=== PATIENT | female | born 1965 | race Caucasian/White ===

== ENCOUNTER 2016-08-07 08:39 | Emergency (ER) | payer BC ==
--- NOTE | 2016-08-07 09:11 | ED ---
Extremity Problem HPI - General Stated complaint: LEFT WRIST INJURY, FROM FALL Time Seen by Provider: 08/07/16 08:49 Source: RN notes reviewed - History of Present Illness Initial comments: 50-year-old female presents emergency Department chief complaint of left wrist pain. Patient states she tripped and fell on Sunday. Patient states since then she's had some stiffness to her left wrist worse with movement. Patient does admit to pain at the base of the thumb. Patient states she has a history of breaking this wrist in the past so she was concerned. Patient states she hasn't had any other symptoms with this. Patient states pain is moderate radiates into the elbow. Worst movement or touch.Patient denies any recent fever, chills, shortness of breath, chest pain, back pain, abdominal pain, nausea vomiting, numbness or tingling, dysuria or hematuria, constipation or diarrhea, headaches or visual changes, or any other current symptoms. - Related Data Home Medications Medication Instructions Recorded Confirmed No Known Home Medications [No 08/07/16 08/07/16 Known Home Medications] Allergies Allergy/AdvReac Type Severity Reaction Status Date / Time codeine Allergy Severe Anaphylaxis Verified 08/07/16 08:52 iodine Allergy Severe Rash/Hives Verified 08/07/16 08:52 povidone-iodine AdvReac Rash/Hives Verified 08/07/16 08:52 [From Betadine] soap [From Betadine] AdvReac Rash/Hives Verified 08/07/16 08:52 Review of Systems ROS Statement: Those systems with pertinent positive or pertinent negative responses have been documented in the HPI. ROS Other: All systems not noted in ROS Statement are negative. Past Medical History Past Medical History: GERD/Reflux, Neurologic Disorder, Pneumonia, Syncope Additional Past Medical History / Comment(s): Epilepsy- A CHILD-LAST SEIZURE AT AGE 13, Sleep apnea/HTN/HYPERLIPIDEMIA RESOLVED WITH WT LOSS SURGERY."HIATAL HERNIA/ULCERS/H PYLORI, GERD is resolved, panni 03/20 History of Any Multi-Drug Resistant Organisms: None Reported Past Surgical History: Bariatric Surgery, Section, Cholecystectomy, Hysterectomy, Tonsillectomy Additional Past Surgical History / Comment(s): Lap band insertion and removal followed by a gastric bypass,C-SECT X 2 Past Anesthesia/Blood Transfusion Reactions: Motion Sickness, Postoperative Nausea & Vomiting (PONV) Additional Past Anesthesia/Blood Transfusion Reaction / Comment(s): CLAUSTERPHOBIA Past Psychological History: Anxiety Additional Psychological History / Comment(s): PT LIVES WITH HER DAUGHTERS.PT IS INDEPENDANT WORKS [employer] AT [employer]. Smoking Status: Former smoker Past Alcohol Use History: None Reported Additional Past Alcohol Use History / Comment(s): QUIT SMOKING APPROX 2004, SMOKED APPROX 5 YRS Past Drug Use History: None Reported - Past Family History Father Family Medical History: Cancer, Myocardial Infarction ([place]) Additional Family Medical History / Comment(s): prostate CANCER, PACEMAKER Mother Family Medical History: Hypertension Additional Family Medical History / Comment(s): MIGRAINES, MANIC DEPRESSION. COMMITTED SUICIDE AT AGE 54 General Exam - General Exam Comments Initial Comments: General: The patient is awake and alert, in no distress, and does not appear acutely ill. Neck: The neck is supple, there is no tenderness. Cardiovascular: There is a regular rate. Respiratory: Lungs respirations are non-labored, breath sounds are equal. Musculoskeletal: Sensation intact with 2+ pulses. Left foot x-ray. For range of motion of left elbow and left wrist. Patient does have some tenderness to palpation of the anatomical snuffbox. No tenderness to distal ulna or radius. No associated deformity or swelling. Full range motion of left elbow and all the hand. Neurological: CN II-XII intact, There are no obvious motor or sensory deficits. Coordination appears grossly intact. Speech is normal. Skin: Skin is warm and dry and no rashes or lesions are noted. Psychiatric: Normal mood and affect. Course Vital Signs 08/07/16 09:20 Temperature 97.1 F L Pulse Rate 64 Respiratory 18 Rate Blood Pressure 106/76 O2 Sat by Pulse 100 Oximetry Procedures - Orthopedic Splinting/Casting Injury #1 Side: left Upper Extremity Injury Location: wrist Upper Extremity Immobilizer: thumb spica (Short-arm) Medical Decision Making - Medical Decision Making 50-year-old female presents for left wrist pain. Hematologic potassium, Celebrex. There is a suspected fracture. X-ray results are reviewed. Patient was in a splint and given information for follow-up. We discussed return parameters. We discussed all the patient's questions. She stated that she understood. This time she'll be discharged home. Disposition Clinical Impression: Left wrist sprain Disposition: HOME SELF-CARE Condition: Stable Instructions: Wrist Injury (ED) Additional Instructions: Please use medication as discussed. Please follow up with family doctor if symptoms have not improved over the next two days. Please return to the emergency room if your symptoms increase or worsen or for any other concerns. Referrals: Hong Live III, MD [Primary Care Provider] - 1-2 days Mohan Garner MD [STAFF PHYSICIAN] - 1-2 days Time of Disposition: 09:48
[2016-08-07 09:24] VITALS: TEMP 97.1
--- NOTE | 2016-08-07 09:41 | XR ---
Left wrist HISTORY: Trauma, pain 4 views of the left wrist correlated to prior left wrist exam 24 August 2015 There is no significant interval change. IMPRESSION: Stable exam, no acute abnormalities evident. Follow-up for persistence of symptoms.
[2016-08-07 10:26] VITALS: BP 108/72; PULSE 71; RESP 16
== END 2016-08-07 10:26 | disposition home or self-care (01) ==
LOC: EC 08:39
DX: S63.502A Unspecified sprain of left wrist, initial encounter (principal); W01.0XXA Fall on same level from slipping, tripping and stumbling without subsequent striking against object, initial encounter; Z87.81 Personal history of (healed) traumatic fracture; Z88.5 Allergy status to narcotic agent; Z88.8 Allergy status to other drugs, medicaments and biological substances; Z87.891 Personal history of nicotine dependence
CPT/HCPCS: 29125; 99283

== ENCOUNTER → 2017-03-22 | Outpatient (CLI) | payer BC ==
--- NOTE | 2017-03-23 09:40 | MM ---
Reason for exam: screening (asymptomatic). Last mammogram was performed 3 years and 3 months ago. History: Family history of breast cancer in maternal grandmother. Physical Findings: A clinical breast exam by your physician is recommended on an annual basis and results should be correlated with mammographic findings. MG 3D Screening Mammo W/Cad Bilateral CC and MLO view(s) were taken. Prior study comparison: December 22, 2013, right breast MG work up mamm w CAD RT. December 17, 2013, bilateral MG screening mammo w CAD. August 16, 2010, bilateral digital screening mammogram. The breast tissue is heterogeneously dense. This may lower the sensitivity of mammography. No suspicious abnormality. No significant changes when compared with prior studies. ASSESSMENT: Negative, BI-RAD 1 RECOMMENDATION: Routine screening mammogram of both breasts in 1 year.
== END | disposition home or self-care (01) ==
LOC: RADMAMWWP 14:19
PROVIDERS: ATTEND Family Medicine
DX: Z12.31 Encounter for screening mammogram for malignant neoplasm of breast (principal)
CPT/HCPCS: 77063; G0202

== ENCOUNTER → 2018-02-28 | Outpatient (CLI) | payer BC ==
--- NOTE | 2018-02-28 08:32 | MM ---
Reason for exam: clinical finding. Last mammogram was performed 11 months ago. History: Family history of breast cancer in maternal grandmother at age 70. Indicated problem(s): non-bloody discharge in both breasts. Physical Findings: Nurse did not find any significant physical abnormalities on exam. MG 3D Diag Mammo W/Cad TORITO Bilateral CC and MLO view(s) were taken. Technologist: Pam Gonzalez, RT (R)(M) Prior study comparison: March 22, 2017, bilateral MG 3d screening mammo w/cad. December 22, 2013, right breast MG work up mamm w CAD RT. The breast tissue is heterogeneously dense. This may lower the sensitivity of mammography. There is no discrete abnormality. No significant new findings when compared with previous films. These results were verbally communicated with the patient and result sheet given to the patient on 02/28/18. ASSESSMENT: Negative, BI-RAD 1 RECOMMENDATION: Routine screening mammogram of both breasts in 1 year. Manage patient on a clinical basis.
== END | disposition home or self-care (01) ==
LOC: RADMAMWWP 06:54
PROVIDERS: ATTEND Family Medicine
DX: N64.52 Nipple discharge (principal)
CPT/HCPCS: 77062; 77066

== ENCOUNTER → 2018-07-18 | Outpatient (CLI) | payer BC ==
--- NOTE | 2018-07-18 10:20 | P.PN ---
Subjective Progress Note Date: 07/18/18 HPI: She is coming in with abdominal pain at the left upper pain. She has tried drinking coffee. She had breast leakage that now has gone away. Lowest weight after surgery was 197 pounds. She has burning, stabbing and stretching along the left upper abdomen. She is currently taking Ibuprofen and gastric bypass. ABDOMEN: Left upper pain PLAN: 1. Get bariatric labs 2. Recommend EGD 3. Get CT scan of the abdomen.
[2018-07-18 11:19] LABS: HCT 38.5 % (34.0-46.0); HGB 12.9 gm/dL (11.4-16.0); MCH 30.6 pg (25.0-35.0); MCHC 33.4 g/dL (31.0-37.0); MCV 91.6 fL (80.0-100.0); Mean Platelet Volume 7.6; Platelet Count 265 k/uL (150-450); RDW 13.1 % (11.5-15.5); WBC 6.6 k/uL (3.8-10.6)
[2018-07-18 11:41] LABS: INR 0.9 (<1.2); Partial Thromboplastin Time 24.9 sec (22.0-30.0); Prothrombin Time 9.5 sec (9.0-12.0)
[2018-07-18 12:03] VITALS: BP 130/67; PULSE 76; TEMP 98.2; BMI 35.5
[2018-07-18 15:56] LABS: Iron Saturation 16.25 (12.00-45.00)
[2018-07-18 16:00] LABS: Albumin 4.3 g/dL (3.80-4.90); Albumin/Globulin Ratio 2.53 (1.20-2.10); Anion Gap 8.1 mmol/L (4.00-12.00); Carbon Dioxide 25.9 mmol/L (21.6-31.8); Globulin 1.7 g/dL (2.1-3.7); Phosphorus 4.1 mg/dL (2.4-5.1); Potassium 4.1 mmol/L (3.5-5.5); Total Bilirubin 0.2 mg/dL (0.3-1.2)
[2018-07-18 16:04] LABS: Folate, Serum 9.5 ng/mL; Vitamin D 25 Hydroxy 20.7 ng/mL (30.0-100.0)
[2018-07-18 17:28] LABS: Hemoglobin A1C 5.2 % (4.0-6.0)
[2018-07-18 17:39] LABS: Parathyroid Hormone Intact 77.7 pg/mL (14.0-72.0)
[2018-07-19 12:25] LABS: Vitamin B1 50 ug/L (38-122)
[2018-07-19 14:28] LABS: Zinc, Serum 78 ug/dL (60-130)
== END ==
LOC: BARWHC3 09:17
PROVIDERS: ATTEND Surgery Plastic and Reconstructive Surgery
DX: R10.12 Left upper quadrant pain (principal); E66.01 Morbid (severe) obesity due to excess calories; E21.1 Secondary hyperparathyroidism, not elsewhere classified; E89.1 Postprocedural hypoinsulinemia; D50.9 Iron deficiency anemia, unspecified; E44.0 Moderate protein-calorie malnutrition; E55.9 Vitamin D deficiency, unspecified; K74.1 Hepatic sclerosis; N19 Unspecified kidney failure; K50.90 Crohn's disease, unspecified, without complications; Z98.84 Bariatric surgery status
CPT/HCPCS: 36415; 80053; 80061; 82306; 82525; 82607; 82728; 82746; 83036; 83540; 83550; 83735; 83970; 84100; 84134; 84255; 84425; 84443; 84590; 84630; 85027; 85610; 85730; 99211

== ENCOUNTER → 2018-08-05 | Outpatient (CLI) | payer BC ==
--- NOTE | 2018-08-05 13:45 | CT ---
EXAMINATION TYPE: CT abdomen pelvis wo con DATE OF EXAM: 08/05/2018 COMPARISON: 12/22/2015 INDICATION: Mid abdominal pain x few months. DLP: 775.2 mGycm, Automated exposure control for dose reduction was used. CONTRAST: 0 mL of Isovue 300. Study performed without Oral Contrast TECHNIQUE: Axial images were obtained from above the diaphragm to the pubic rami in the axial plane a t 5 mm thick sections. Reconstructed images are reviewed on the computer in the coronal plane. FINDINGS: Limited CT sections are obtained the lung bases. There is a mild infiltrate in the posterior medial left lower lung field. Correlate for atelectasis and pneumonia. Follow-up is recommended.. CT ABDOMEN: Prior gastric surgery is evident. Liver: Normal Spleen: Normal Pancreas: Normal Adrenal glands: The adrenal glands are normal. Gallbladder: Surgically absent Kidneys: No masses are evident. No hydronephrosis is present. No cysts are present. No renal stone s are identified. Aorta: Vascular calcification is within the aorta. Inferior vena cava: Normal. CT PELVIS: Loops of bowel within the abdomen and pelvis are normal. Studies performed without oral contrast limiting the bowel evaluation. There are a few scattered diverticuli within the sigmoid colon. Appendix: Normal as visualized. Urinary bladder: Normal. Genitourinary structures: Uterus appears normal. Adnexal regions are clear. Osseous structures: No suspicious lytic or sclerotic lesions. IMPRESSIONS: 1. Posterior medial left lower lobe infiltrate. Correlate for pneumonia. Follow-up is recommended. 2. Diverticulosis without acute diverticulitis.
== END ==
LOC: RADCTMAIN 11:47
PROVIDERS: ATTEND Surgery Plastic and Reconstructive Surgery
DX: K57.90 Diverticulosis of intestine, part unspecified, without perforation or abscess without bleeding (principal)
CPT/HCPCS: 74176

== ENCOUNTER 2018-09-16 10:40 | Day surgery (SDC) | payer BC ==
[2018-09-12 11:51] VITALS: BMI 34.9
--- NOTE | 2018-09-16 06:28 | P.GSHP ---
History of Present Illness H&P Date: 09/16/18 CHIEF COMPLAINT: GERD HISTORY OF PRESENT ILLNESS: The patient is a 52-year-old female who presents reports gastroesophageal reflux disease. Upper endoscopy was offered for further evaluation and management. PAST MEDICAL HISTORY: Please see list. PAST SURGICAL HISTORY: Please see list. MEDICATIONS: Please see list. ALLERGIES: Please see list. SOCIAL HISTORY: No illicit drug use FAMILY HISTORY: No reports of Crohn disease or ulcerative colitis. REVIEW OF ORGAN SYSTEMS: CONSTITUTIONAL: No reports of fevers or chills. GI: Denies any blood in stools or constipation. PHYSICAL EXAM: VITAL SIGNS: Stable GENERAL: Well-developed and pleasant in no acute distress. HEENT: No scleral icterus. Extraocular movements grossly intact. Moist buccal mucosa. NECK: Supple without lymphadenopathy. CHEST: Unlabored respirations. Equal bilateral excursions. CARDIOVASCULAR: Regular rate and rhythm. Distal 2+ pulses. ABDOMEN: Soft, nondistended. MUSCULOSKELETAL: No clubbing, cyanosis, or edema. ASSESSMENT: 1. Gastroesophageal reflux disease PLAN: 1. Recommend proceeding with an upper endoscopy Past Medical History Past Medical History: GERD/Reflux, Neurologic Disorder, Pneumonia, Syncope Additional Past Medical History / Comment(s): Epilepsy- A CHILD-LAST SEIZURE AT AGE 13, "borderline cholesterol-no tx" History of Any Multi-Drug Resistant Organisms: None Reported Past Surgical History: Bariatric Surgery, Section, Cholecystectomy, Hysterectomy, Tonsillectomy Additional Past Surgical History / Comment(s): Lap band insertion and removal followed by a gastric bypass, abdominoplasty Past Anesthesia/Blood Transfusion Reactions: Motion Sickness, Postoperative Nausea & Vomiting (PONV) Additional Past Anesthesia/Blood Transfusion Reaction / Comment(s): CLAUSTROPHOBIA, motion sickness as child, no PONV in a long time Smoking Status: Current every day smoker - Past Family History Father Family Medical History: Cancer Additional Family Medical History / Comment(s): prostate CANCER Mother Family Medical History: Deep Vein Thrombosis (DVT), Pulmonary Embolus Additional Family Medical History / Comment(s): . Medications and Allergies Home Medications Medication Instructions Recorded Confirmed Type Omeprazole 40 mg PO DAILY #30 capsule. 07/18/18 09/12/18 Rx Multivitamins, Thera [Multivitamin 1 tab PO DAILY 09/12/18 09/12/18 History (formulary)] Allergies Allergy/AdvReac Type Severity Reaction Status Date / Time codeine Allergy Severe Anaphylaxis Verified 09/12/18 11:43 iodine Allergy Severe Rash/Hives Verified 09/12/18 11:43 povidone-iodine AdvReac Rash/Hives Verified 09/12/18 11:43 [From Betadine] soap [From Betadine] AdvReac Rash/Hives Verified 09/12/18 11:43
[~2018-09-16 10:40] MED LIST: LACTATED RINGERS 1,000 ML IV SCH; LIDOCAINE 1% 20 ML VIAL (10MG/ML) FOR IV START INTRADERMA PRN
[2018-09-16 10:57] VITALS: TEMP 97.9
[2018-09-16] MEDS ORDERED: PROPOFOL 10 MG/ML 20 ML VIAL IV ONE (12:42)
[2018-09-16] MEDS ORDERED: LIDOCAINE 1% INJ 10MG/ML (20 ML MDV) ONE (12:42)
[2018-09-16] MEDS ORDERED: KETAMINE 10 MG/ML 20 ML VIAL ONE (12:42)
--- NOTE | 2018-09-16 13:08 | P.PCN ---
Date of Procedure: 09/16/18 Description of Procedure: PREOPERATIVE DIAGNOSIS: Dysphagia. Epigastric abdominal pain Morbid obesity. POSTOPERATIVE DIAGNOSIS: Dysphagia. Epigastric abdominal pain Morbid obesity. Gastritis Gastrojejunal stricture Diaphragmatic hiatal hernia OPERATION: Esophagogastrojejunoscopy with balloon dilatation 20 mm. Esophagogastrojejunoscopy with cold biopsy forceps SURGEON: Iraida Ashby MD ANESTHESIA: MAC. INDICATIONS: The patient is a 52-year-old female who presents with a history of dysphagia, gastric bypass including nausea and vomiting. Benefits and risks of the procedure were described. Informed consent was obtained. DESCRIPTION: The patient was brought into the endoscopy suite and laid in the left lateral decubitus position. After a timeout was confirmed, the procedure was initiated. An Olympus gastroscope was passed along the posterior oropharynx down to the distal esophagus where the squamocolumnar junction was unremarkable. The gastric pouch was entered. A gastrojejunal stricture of 15 mm was found as the adult gastroscope was 9.5 mm in size. A Edicy balloon dilator was placed through the scope. Final insufflation up to 20 mm was performed with a total of 2 minutes. The scope was advanced up to 50 cm from the incisors into the Kalyn limb. The mucosa of the gastrojejunal anastomosis was intact. No gastrojejunal marginal ulcer was encountered. No full-thickness injury was encountered. Gastritis was identified along the gastric pouch and cold forceps biopsy. The GI tract was desufflated. The patient tolerated the procedure well. FINDINGS: Stricture of approximately 15 mm encountered. No chronic gastrojejunal ulceration encountered. Successful balloon dilatation to 20 mm. Diaphragmatic hiatal hernia, 4 cm Gastritis along the pouch with cold forceps biopsy obtained RECOMMENDATIONS: Upper endoscopy as needed Plan - Discharge Summary Discharge Rx Participant: No New Discharge Prescriptions: No Action Omeprazole 40 mg PO DAILY #30 capsule. Multivitamins, Thera [Multivitamin (formulary)] 1 tab PO DAILY Discharge Medication List Omeprazole 40 mg PO DAILY #30 capsule. 07/18/18 [Rx] Multivitamins, Thera [Multivitamin (formulary)] 1 tab PO DAILY 09/12/18 [History ] Follow up Appointment(s)/Referral(s): [facility] [NON-STAFF] - 10/09/18 Patient Instructions/Handouts: *Surgery [facility] - (Anesthesia) Endoscopy Discharge Instructions, Hiatal Hernia (DC), Esophageal Stricture (DC), Dysphagia (ED), Upper Endoscopy (DC) Activity/Diet/Wound Care/Special Instructions: Liquid diet today. Soft diet tomorrow. Discharge Disposition: HOME SELF-CARE
[2018-09-16 13:17] VITALS: BP 114/71; PULSE 76; RESP 16
== END 2018-09-16 13:32 | disposition home or self-care (01) ==
LOC: ORWHC2ENDO 10:40
PROVIDERS: ATTEND Surgery Plastic and Reconstructive Surgery
DX: K29.50 Unspecified chronic gastritis without bleeding (principal); K22.2 Esophageal obstruction; K21.9 Gastro-esophageal reflux disease without esophagitis; K44.9 Diaphragmatic hernia without obstruction or gangrene; E66.01 Morbid (severe) obesity due to excess calories; Z91.048 Other nonmedicinal substance allergy status; F40.240 Claustrophobia; F17.200 Nicotine dependence, unspecified, uncomplicated; G40.909 Epilepsy, unspecified, not intractable, without status epilepticus; Z98.84 Bariatric surgery status; Z87.01 Personal history of pneumonia (recurrent); Z90.49 Acquired absence of other specified parts of digestive tract; Z79.899 Other long term (current) drug therapy; Z88.5 Allergy status to narcotic agent; Z68.34 Body mass index [BMI] 34.0-34.9, adult
CPT/HCPCS: 88305; 43239; 43245; J2001; J2704; C1726

== ENCOUNTER 2018-10-21 08:24 | Emergency (ER) | payer BC ==
[2018-10-21 08:30] VITALS: TEMP 98
[2018-10-21] MEDS ORDERED: predniSONE 50 MG TAB PO STA (08:45)
[2018-10-21] MEDS ORDERED: KETOROLAC 60 MG/2 ML VIAL IM STA (08:45)
[2018-10-21] MEDS ORDERED: HYDROmorphone 1 MG/ML 1 ML SYRINGE IM STA (08:45)
--- NOTE | 2018-10-21 09:06 | ED ---
General Adult HPI <Geraldo Torres - Last Filed: 10/21/18 12:48> - General Source: patient, RN notes reviewed Mode of arrival: ambulatory Limitations: no limitations <Moi Mo - Last Filed: 10/21/18 13:38> - General Chief complaint: Extremity Problem,Nontraumatic Stated complaint: hip pain Time Seen by Provider: 10/21/18 08:24 - History of Present Illness Initial comments: This a 52-year-old female who presents emergency Department complaining of right lower back pain that started last night. Patient points to the SI joint on the right side. Patient states is no radiation of the pain however movement of the leg with lifting her leg does cause more pain in that exact spot. Patient de nies any numbness weakness per patient denies any urinary retention or urinary incontinence. She denies any injury patient denies any heavy lifting. Patient states twisting bending also increase the pain. Patient denies any other problems at this time. (Moi Mo) - Related Data Home Medications Medication Instructions Recorded Confirmed Multivitamins, Thera [Multivitamin 1 tab PO DAILY 09/12/18 10/21/18 (formulary)] Cholecalciferol [Vitamin D3] 1,000 unit PO DAILY 10/21/18 10/21/18 Previous Rx's Medication Instructions Recorded Omeprazole 40 mg PO DAILY #30 capsule. 07/18/18 predniSONE 40 mg PO DAILY #8 tab 10/21/18 Allergies Allergy/AdvReac Type Severity Reaction Status Date / Time codeine Allergy Severe Anaphylaxis Verified 10/21/18 08:58 iodine Allergy Severe Rash/Hives Verified 10/21/18 08:58 povidone-iodine AdvReac Rash/Hives Verified 10/21/18 08:58 [From Betadine] soap [From Betadine] AdvReac Rash/Hives Verified 10/21/18 08:58 Review of Systems ROS Other: All systems not noted in ROS Statement are negative. <Geraldo Torres - Last Filed: 10/21/18 12:48> ROS Other: All systems not noted in ROS Statement are negative. <Moi oM - Last Filed: 10/21/18 13:38> ROS Statement: Those systems with pertinent positive or pertinent negative responses have been documented in the HPI. Past Medical History Past Medical History: GERD/Reflux, Neurologic Disorder, Pneumonia, Syncope Additional Past Medical History / Comment(s): Epilepsy- A CHILD-LAST SEIZURE AT AGE 13, "borderline cholesterol-no tx" History of Any Multi-Drug Resistant Organisms: None Reported Past Surgical History: Bariatric Surgery, Section, Cholecystectomy, Hysterectomy, Tonsillectomy Additional Past Surgical History / Comment(s): Lap band insertion and removal followed by a gastric bypass, abdominoplasty Past Anesthesia/Blood Transfusion Reactions: Motion Sickness, Postoperative Nausea & Vomiting (PONV) Additional Past Anesthesia/Blood Transfusion Reaction / Comment(s): CLAUSTROPHOBIA, motion sickness as child, no PONV in a long time Past Psychological History: Anxiety Smoking Status: Current every day smoker Past Alcohol Use History: None Reported Past Drug Use History: None Reported - Past Family History Father Family Medical History: Cancer Additional Family Medical History / Comment(s): prostate CANCER Mother Family Medical History: Deep Vein Thrombosis (DVT), Pulmonary Embolus Additional Family Medical History / Comment(s): . <Moi Mo - Last Filed: 10/21/18 13:38> General Exam Limitations: no limitations <Moi Mo - Last Filed: 10/21/18 13:38> - General Exam Comments Initial Comments: GENERAL: Patient is well-developed and well-nourished. Patient is nontoxic and well- hydrated and is in mild distress. ENT: Neck is soft and supple. No significant lymphadenopathy is noted. Oropharynx is clear. Moist mucous membranes. Neck has full range of motion without eliciting any pain. EYES: The sclera were anicteric and conjunctiva were pink and moist. Extraocular movements were intact and pupils were equal round and reactive to light. Eyelids were unremarkable. PULMONARY: Unlabored respirations. Good breath sounds bilaterally. No audible rales rhonchi or wheezing was noted. CARDIOVASCULAR: There is a regular rate and rhythm without any murmurs gallops or rubs. ABDOMEN: Soft and nontender with normal bowel sounds. No palpable organomegaly was noted. There is no palpable pulsatile mass. SKIN: Skin is clear with no lesions or rashes and otherwise unremarkable. NEUROLOGIC: Patient is alert and oriented x3. Cranial nerves II through XII are grossly intact. Motor and sensory are also intact. Normal speech, volume and content. Symmetrical smile. Straight leg causes pain in the SI joint on the right side at about 30. MUSCULOSKELETAL: Normal extremities with adequate strength and full range of motion. LYMPHATICS: No significant lymphadenopathy is noted PSYCHIATRIC: Normal psychiatric evaluation. (Moi Mo) Course Vital Signs 10/21/18 10/21/18 10/21/18 08:25 10:35 12:35 Temperature 98.0 F Pulse Rate 77 65 89 Respiratory 18 18 19 Rate Blood Pressure 127/74 118/62 123/85 O2 Sat by Pulse 98 100 100 Oximetry Medical Decision Making <Geraldo Torres - Last Filed: 10/21/18 12:48> <Moi Mo - Last Filed: 10/21/18 13:38> - Medical Decision Making Dr. Mo has been to evaluate the patient for possible sacroiliitis and potential need for injection. The patient is generally tender over the right SI joint. It is felt as though she likely does have sacroiliitis. Risks and benefits of doing an injection into this area were discussed with the patient and she is agreeable. Utilizing Depo-Medrol, lidocaine, and bupivacaine mixture of 10 mL was injected into the right SI joint in the usual standard sterile fashion without any complications. She tolerated this quite well. (Geraldo Torres) After patient got Dilaudid she still felt a little itchy and warmth to her chest is an EKG was done shows normal sinus rhythm at 62 bpm MO interval is on a 54 QRS is 88 QT interval 418 QTC is 424. Patient's EKG shows no ST segment elevation or depression or T wave abnormalities are noted. I reevaluated the patient after the injection by and the patient is feeling considerably better. (Moi Mo) Disposition <Geraldo Torres - Last Filed: 10/21/18 12:48> Is patient prescribed a controlled substance at d/c from ED?: No Time of Disposition: 13:38 <Moi Mo - Last Filed: 10/21/18 13:38> Clinical Impression: Sacroiliitis Disposition: HOME SELF-CARE Prescriptions: predniSONE 40 mg PO DAILY #8 tab Referrals: Hong Live III, MD [Primary Care Provider] - 1-2 days
[2018-10-21] MEDS ORDERED: methylPREDNISolone ACETATE 40 MG/ML 1 ML VIAL INTRAARTIC STA (11:44)
[2018-10-21] MEDS ORDERED: BUPIVACAINE (PF) 0.5% 30 ML VIAL INTRAARTIC STA (11:45)
[2018-10-21] MEDS ORDERED: LIDOCAINE 1% INJ 10MG/ML (20 ML MDV) SQ ONE (11:46)
[2018-10-21] MEDS ORDERED: ROPIVACAINE 5MG/ML 20ML VIAL MISCELLANE STA (12:06)
[2018-10-21] MEDS ORDERED: ROPIVACAINE 5 MG/ML 30 ML VIAL MISCELLANE STA (12:10)
--- NOTE | 2018-10-21 13:12 | XR ---
EXAMINATION TYPE: XR pelvis AP view DATE OF EXAM: 10/21/2018 COMPARISON: NONE HISTORY: 52 year-old female right posterior hip pain TECHNIQUE: Single view FINDINGS: SI joints appear symmetric and intact as does the pubic symphysis. The hips are intact. No acute frac ture, subluxation, or dislocation seen. IMPRESSION: No acute osseous abnormality seen.
[2018-10-21 13:48] VITALS: BP 112/74; PULSE 72; RESP 18
== END 2018-10-21 13:48 | disposition home or self-care (01) ==
LOC: EC 08:24
DX: M46.1 Sacroiliitis, not elsewhere classified (principal); F17.200 Nicotine dependence, unspecified, uncomplicated; Z79.899 Other long term (current) drug therapy; Z88.5 Allergy status to narcotic agent; Z91.048 Other nonmedicinal substance allergy status; Z88.8 Allergy status to other drugs, medicaments and biological substances
CPT/HCPCS: 93005; 72170; 99284; 20605; 96372 ×2; J1030; J2001; J1885; J1170; J2795; J7512

== ENCOUNTER → 2019-05-30 | Outpatient (CLI) | payer BC ==
[2019-05-30 17:23] LABS: HCT 39.4 % (34.0-46.0); HGB 13.1 gm/dL (11.4-16.0); MCH 30.4 pg (25.0-35.0); MCHC 33.2 g/dL (31.0-37.0); MCV 91.6 fL (80.0-100.0); Mean Platelet Volume 6.5; Platelet Count 300 k/uL (150-450); RDW 12.8 % (11.5-15.5); WBC 9.9 k/uL (3.8-10.6)
[2019-05-30 17:38] LABS: INR 0.8 (<1.2); Partial Thromboplastin Time 24.7 sec (22.0-30.0); Prothrombin Time 9.3 sec (9.0-12.0)
[2019-05-30 23:11] LABS: Ferritin 23.5 ng/mL (10.0-291.0)
[2019-05-30 23:20] LABS: % Iron Saturation 9.59 (12.00-45.00); African American GFR (CKD) 85.2 (60.0-200.0); Albumin 4.5 g/dL (3.80-4.90); Albumin/Globulin Ratio 2.5 (1.60-3.17); Anion Gap 5.7 mmol/L (4.00-12.00); BUN/Creat Ratio 17.78 Ratio (12.00-20.00); Calcium 9.2 mg/dL (8.7-10.3); Carbon Dioxide 28.3 mmol/L (21.6-31.8); Chol/HDL Ratio 3.51; Globulin 1.8 g/dL (1.6-3.3); LDL Cholesterol,Calculated 98.2 mg/dL (0.0-131.0); Phosphorus 3.7 mg/dL (2.4-5.1); Potassium 4.5 mmol/L (3.5-5.5); Total Bilirubin 0.2 mg/dL (0.3-1.2); Total Protein 6.3 g/dL (6.2-8.2); VLDL Calculation 39.8 mg/dL (5.00-40.00)
[2019-05-30 23:22] LABS: Hemoglobin A1C 5.3 % (4.0-6.0)
[2019-06-02 15:50] LABS: Zinc, Serum 62 ug/dL (60-130)
[2019-06-03 07:31] LABS: Vit B1(Thiamine) 58 ug/L (38-122)
[2019-06-03 07:41] LABS: Vitamin A 31 ug/dL (38-106)
== END | disposition home or self-care (01) ==
LOC: LABWHC1 16:48
PROVIDERS: ATTEND Surgery Plastic and Reconstructive Surgery
DX: E21.1 Secondary hyperparathyroidism, not elsewhere classified (principal); E89.1 Postprocedural hypoinsulinemia; D50.9 Iron deficiency anemia, unspecified; K90.9 Intestinal malabsorption, unspecified; E44.0 Moderate protein-calorie malnutrition; E55.9 Vitamin D deficiency, unspecified; K74.1 Hepatic sclerosis; N19 Unspecified kidney failure; K50.90 Crohn's disease, unspecified, without complications; E66.01 Morbid (severe) obesity due to excess calories
CPT/HCPCS: 36415; 80053; 80061; 82306; 82525; 82607; 82728; 82746; 83036; 83540; 83550; 83735; 83970; 84100; 84134; 84255; 84425; 84443; 84590; 84630; 85027; 85610; 85730

== ENCOUNTER 2019-06-03 18:59 | Emergency (ER) | payer BC ==
[2019-06-03 19:09] VITALS: RESP 18
[2019-06-03] MEDS ORDERED: SODIUM CHLORIDE 0.9% 1,000 ML IV STA (19:19)
[2019-06-03] MEDS ORDERED: ONDANSETRON 4 MG/2 ML VIAL IVP STA ×2 (19:19→22:00)
[2019-06-03] MEDS ORDERED: HYDROmorphone 2 MG/ML 1 ML SYRINGE IVP STA (19:20)
[2019-06-03 19:49] LABS: Basophils # (A) 0.1 k/uL (0-0.2); Basophils % (A) 1 %; Eosinophils # (A) 0.2 k/uL (0-0.7); Eosinophils % (A) 2 %; HCT 39.5 % (34.0-46.0); HGB 13.2 gm/dL (11.4-16.0); Lymphocytes # (A) 2.6 k/uL (1.0-4.8); Lymphocytes % (A) 31 %; MCH 30.2 pg (25.0-35.0); MCHC 33.4 g/dL (31.0-37.0); MCV 90.6 fL (80.0-100.0); Mean Platelet Volume 7.1; Monocytes # (A) 0.3 k/uL (0-1.0); Monocytes % (A) 4 %; Neutrophils # (A) 5.1 k/uL (1.3-7.7); Neutrophils % (A) 61 %; Platelet Count 322 k/uL (150-450); RBC 4.36 m/uL (3.80-5.40); RDW 12.9 % (11.5-15.5); WBC 8.4 k/uL (3.8-10.6)
--- NOTE | 2019-06-03 19:55 | ED ---
Abdominal Pain HPI - General Chief Complaint: Abdominal Pain Stated Complaint: RLQ PAIN Time Seen by Provider: 06/03/19 19:15 Source: patient Mode of arrival: ambulatory Limitations: no limitations - History of Present Illness Initial Comments: 53-year-old female patient presents to the emergency department today for evaluation of right lower quadrant abdominal pain. Patient states the pain has been present since around 1500 today. States she has been quite nauseated with this but denies any vomiting. States the pain is radiating through to her back. She describes the pain as a sharp stabbing pain. She states that she is unable to urinate or have a bowel movement since pain onset. Last bowel movement was this morning, it was normal for her. She denies any fever or chills. She has had multiple abdominal surgeries in the past including 2 C-sections, lap band insertion and removal, and cholecystectomy. She denies taking any medication for her symptoms today. Denies chest pain or trouble breathing. Patient denies any recent rash, shortness breath, chest pain, numbness, tingling, dizziness, weakness, headache, visual changes, or any other complaints. - Related Data Home Medications Medication Instructions Recorded Confirmed Vortioxetine Hydrobromide 20 mg PO DAILY 06/03/19 06/03/19 [Trintellix] Allergies Allergy/AdvReac Type Severity Reaction Status Date / Time codeine Allergy Severe Anaphylaxis Verified 06/03/19 19:47 iodine Allergy Severe Rash/Hives Verified 06/03/19 19:47 povidone-iodine AdvReac Rash/Hives Verified 06/03/19 19:47 [From Betadine] soap [From Betadine] AdvReac Rash/Hives Verified 06/03/19 19:47 Review of Systems ROS Statement: Those systems with pertinent positive or pertinent negative responses have been documented in the HPI. ROS Other: All systems not noted in ROS Statement are negative. Past Medical History Past Medical History: GERD/Reflux, Neurologic Disorder, Pneumonia, Syncope Additional Past Medical History / Comment(s): Epilepsy- A CHILD-LAST SEIZURE AT AGE 13, "borderline cholesterol-no tx" History of Any Multi-Drug Resistant Organisms: None Reported Past Surgical History: Bariatric Surgery, Section, Cholecystectomy, Hysterectomy, Tonsillectomy Additional Past Surgical History / Comment(s): Lap band insertion and removal followed by a gastric bypass, abdominoplasty Past Anesthesia/Blood Transfusion Reactions: Motion Sickness, Postoperative Nausea & Vomiting (PONV) Additional Past Anesthesia/Blood Transfusion Reaction / Comment(s): CLAUSTROPHOBIA, motion sickness as child, no PONV in a long time Past Psychological History: Anxiety Smoking Status: Current every day smoker Past Alcohol Use History: None Reported Past Drug Use History: None Reported - Past Family History Father Family Medical History: Cancer Additional Family Medical History / Comment(s): prostate CANCER Mother Family Medical History: Deep Vein Thrombosis (DVT), Pulmonary Embolus Additional Family Medical History / Comment(s): . General Exam Limitations: no limitations General appearance: alert, in no apparent distress, other (This is a well-dev eloped, well-nourished adult female patient in mild distress related to pain. Vital signs upon presentation are temperature 97.8F, pulse 92, respirations 18, blood pressure 122/78, pulse ox 100% on room air.) Eye exam: Present: normal appearance, PERRL, EOMI. Absent: scleral icterus, conjunctival injection, periorbital swelling ENT exam: Present: normal exam, normal oropharynx, mucous membranes moist Respiratory exam: Present: normal lung sounds bilaterally. Absent: respiratory distress, wheezes, rales, rhonchi, stridor Cardiovascular Exam: Present: regular rate, normal rhythm, normal heart sounds. Absent: systolic murmur, diastolic murmur, rubs, gallop, clicks GI/Abdominal exam: Present: soft, tenderness (Right lower quadrant), normal bowel sounds. Absent: distended, guarding, rebound, rigid Neurological exam: Present: alert, oriented X3, CN II-XII intact Psychiatric exam: Present: normal affect, normal mood Skin exam: Present: warm, dry, intact, normal color. Absent: rash Course Vital Signs 06/03/19 06/03/19 19:06 22:09 Temperature 97.8 F 97.8 F Pulse Rate 92 67 Respiratory 18 18 Rate Blood Pressure 122/78 108/56 O2 Sat by Pulse 100 97 Oximetry Medical Decision Making - Medical Decision Making 53-year-old female patient presents to the emergency department today for evaluation of right lower quadrant abdominal pain and nausea. Physical examination did reveal right lower quadrant and right upper quadrant tenderness. Labs reviewed and were unremarkable. CT abdomen and pelvis was obtained and showed no acute abnormalities. Appendix appears normal. Patient given IV pain medication nausea medication in the emergency department. Upon reevaluation pain is improved however she still feels nauseous. She'll be discharged home with a starter pack for Lady. She is going to follow-up with her primary care physician tomorrow. Return parameters discussed in detail. She verbalizes understanding and agrees with this plan. - Lab Data Result diagrams: 06/03/19 19:38 06/03/19 19:38 Lab Results 06/03/19 06/03/19 06/03/19 Range/Units 19:38 19:38 21:33 WBC 8.4 (3.8-10.6) k/uL RBC 4.36 (3.80-5.40) m/uL Hgb 13.2 (11.4-16.0) gm/dL Hct 39.5 (34.0-46.0) % MCV 90.6 (80.0-100.0) fL MCH 30.2 (25.0-35.0) pg MCHC 33.4 (31.0-37.0) g/dL RDW 12.9 (11.5-15.5) % Plt Count 322 (150-450) k/uL Neutrophils % 61 % Lymphocytes % 31 % Monocytes % 4 % Eosinophils % 2 % Basophils % 1 % Neutrophils # 5.1 (1.3-7.7) k/uL Lymphocytes # 2.6 (1.0-4.8) k/uL Monocytes # 0.3 (0-1.0) k/uL Eosinophils # 0.2 (0-0.7) k/uL Basophils # 0.1 (0-0.2) k/uL Sodium 140 (137-145) mmol/L Potassium 4.0 (3.5-5.1) mmol/L Chloride 107 (98-107) mmol/L Carbon Dioxide 25 (22-30) mmol/L Anion Gap 8 mmol/L BUN 19 H (7-17) mg/dL Creatinine 0.82 (0.52-1.04) mg/dL Est GFR (CKD-EPI)AfAm >90 (>60 ml/min/1.73 sqM) Est GFR (CKD-EPI)NonAf 83 (>60 ml/min/1.73 sqM) Glucose 108 H (74-99) mg/dL Calcium 9.4 (8.4-10.2) mg/dL Total Bilirubin 0.2 (0.2-1.3) mg/dL AST 21 (14-36) U/L ALT 12 (9-52) U/L Alkaline Phosphatase 116 (38-126) U/L Total Protein 7.0 (6.3-8.2) g/dL Albumin 4.3 (3.5-5.0) g/dL Amylase 50 (30-110) U/L Lipase 179 (23-300) U/L Urine Color Yellow Urine Appearance Clear (Clear) Urine pH 6.0 (5.0-8.0) Ur Specific [place] 1.028 (1.001-1.035) Urine Protein Negative (Negative) Urine Glucose (UA) Negative (Negative) Urine Ketones Negative (Negative) Urine Blood Negative (Negative) Urine Nitrite Negative (Negative) Urine Bilirubin Negative (Negative) Urine Urobilinogen <2.0 (<2.0) mg/dL Ur Leukocyte Esterase Negative (Negative) - Radiology Data Radiology results: report reviewed, image reviewed CT abdomen and pelvis is obtained. Report was reviewed in its entirety. Impression by Dr. Brandee Mitchell shows no acute process. Disposition Clinical Impression: Abdominal pain, Nausea & vomiting Disposition: HOME SELF-CARE Condition: Good Instructions (If sedation given, give patient instructions): Acute Nausea and Vomiting (ED), Abdominal Pain (ED) Additional Instructions: Start with clear liquid diet and advance as tolerated. Take medications as directed. Follow-up with primary care physician tomorrow as you have planned. Return to the emergency department immediately for any new, worsening, or concerning symptoms. Is patient prescribed a controlled substance at d/c from ED?: No Referrals: Hong Live III, MD [Primary Care Provider] - 1-2 days Time of Disposition: 23:11
[2019-06-03 19:57] LABS: ALT 12 U/L (9-52); AST 21 U/L (14-36); African American GFR (CKD) >90 (>60 ml/min/1.73 sqM); Albumin 4.3 g/dL (3.5-5.0); Alkaline Phosphatase 116 U/L (38-126); Amylase 50 U/L (30-110); Anion Gap 8 mmol/L; Blood Urea Nitrogen 19 mg/dL (7-17); Calcium 9.4 mg/dL (8.4-10.2); Carbon Dioxide 25 mmol/L (22-30); Chloride 107 mmol/L (98-107); Glucose 108 mg/dL (74-99); Sodium 140 mmol/L (137-145); Total Bilirubin 0.2 mg/dL (0.2-1.3)
[2019-06-03] MEDS ORDERED: HYDROmorphone 1 MG/ML 1 ML SYRINGE IVP STA (20:45)
--- NOTE | 2019-06-03 21:12 | CT ---
EXAMINATION TYPE: CT abdomen pelvis wo con DATE OF EXAM: 06/03/2019 COMPARISON: 08/05/2018 HISTORY: RLQ/flank pain CT DLP: 945 mGycm Automated exposure control for dose reduction was used. TECHNIQUE: Helical acquisition of images was performed from the lung bases through the pelvis. FINDINGS: LUNG BASES: No significant abnormality is appreciated. LIVER/GB: No significant abnormality is appreciated. PANCREAS: No significant abnormality is seen. SPLEEN: No significant abnormality is seen. ADRENALS: No significant abnormality is seen. KIDNEYS: No significant abnormality is seen. FREE AIR: No free air is visualized. No peritoneal fluid. RETROPERITONEAL ADENOPATHY: None visualized REPRODUCTIVE ORGANS: No significant abnormality is seen URINARY BLADDER: No significant abnormality is seen. PELVIC ADENOPATHY: None visualized. OSSEOUS STRUCTURES: No significant abnormality is seen. BOWEL: No significant abnormality is seen. The appendix has normal appearance. IMPRESSION: NO ACUTE PROCESS.
[2019-06-03 21:37] LABS: Appearance,Urine Clear (Clear); Bilirubin,Urine Negative (Negative); Blood,Urine Negative (Negative); Color,Urine Yellow; Glucose,Urine (UA) Negative (Negative); Ketones,Urine Negative (Negative); Leukocyte Esterase,Urine Negative (Negative); Nitrite,Urine Negative (Negative); Protein,Urine Negative (Negative); Specific Gravity,Urine 1.028 (1.001-1.035); Urobilinogen,Urine <2.0 mg/dL (<2.0)
[2019-06-03] MEDS ORDERED: SODIUM CHLORIDE 0.9% 500 ML 500 ML IV ONE (22:00)
[2019-06-03] MEDS ORDERED: ONDANSETRON 4 MG ODT STARTER PACK 2 TAB BTL PO STA (23:10)
[2019-06-03 23:34] VITALS: BP 108/57; PULSE 68; TEMP 96.9
== END 2019-06-03 23:37 | disposition home or self-care (01) ==
LOC: EC 18:59
DX: R10.31 Right lower quadrant pain (principal); R11.2 Nausea with vomiting, unspecified; M54.9 Dorsalgia, unspecified; F41.9 Anxiety disorder, unspecified; F17.200 Nicotine dependence, unspecified, uncomplicated; Z88.5 Allergy status to narcotic agent; Z91.048 Other nonmedicinal substance allergy status; Z79.899 Other long term (current) drug therapy; Z87.19 Personal history of other diseases of the digestive system; Z90.49 Acquired absence of other specified parts of digestive tract; Z98.84 Bariatric surgery status
CPT/HCPCS: 36415; 80053; 82150; 83690; 85025; 81003; 74176; 99284; 96374; 96375; 96376 ×2; 96361 ×3; J1170 ×2; J2405; S0119

== ENCOUNTER 2019-06-04 13:31 | Observation (INO) | payer BC ==
[2019-06-04] MEDS ORDERED: SIMETHICONE 40 MG/0.6 ML DROPS 2,000 MG/30 ML BOTTLE PO PRN (14:40)
[2019-06-04] MEDS ORDERED: NALOXONE 0.4 MG/ML 1 ML VIAL IV PRN (14:40)
[2019-06-04 14:54] VITALS: BMI 35.3
[2019-06-04] MEDS: ALBUTEROL NEBULIZED 2.5 MG/3 ML INHALATION SCH ×2 (16:15→21:37)
[2019-06-04] MEDS: 0.9% NACL WITH KCL 20 MEQ/L 1,000 ML IV SCH ×2 (16:52→23:34)
[2019-06-04] MEDS: ONDANSETRON 4 MG/2 ML VIAL IVP PRN (16:52)
[2019-06-04] MEDS ORDERED: ACETAMINOPHEN IV (For NPO) 1,000 MG in EMPTY BAG 1 BAG IVPB SCH (18:00)
[2019-06-04] MEDS ORDERED: SODIUM CHLORIDE 0.9% 2,000 ML IV ONE (18:31)
[2019-06-04 19:31] LABS: Basophils % (A) 0 %; Eosinophils # (A) 0.1 k/uL (0-0.7); Eosinophils % (A) 2 %; HCT 34.3 % (34.0-46.0); HGB 11.4 gm/dL (11.4-16.0); Lymphocytes # (A) 2.5 k/uL (1.0-4.8); Lymphocytes % (A) 35 %; MCH 30.7 pg (25.0-35.0); MCHC 33.3 g/dL (31.0-37.0); MCV 92.2 fL (80.0-100.0); Mean Platelet Volume 6.5; Monocytes # (A) 0.4 k/uL (0-1.0); Monocytes % (A) 6 %; Neutrophils % (A) 56 %; Platelet Count 259 k/uL (150-450); RBC 3.72 m/uL (3.80-5.40); WBC 7.1 k/uL (3.8-10.6)
--- NOTE | 2019-06-04 19:33 | P.GSHP ---
History of Present Illness H&P Date: 06/04/19 CHIEF COMPLAINT: Abdominal pain. HISTORY OF PRESENT ILLNESS: Carin Copeland is a 53-year-old female who presented to the ER in the last 24 hours secondary to acute onset epigastric to left upper quadrant bowel pain following eating a meal. She reports attempting trying to eat solid foods and has intractable nausea and vomiting. She is unable to pass flatus. She was discharged home from the ER. She reports her pain is cramping andsevere. She has abdominal gas bloat. She denies any relieving factors. She reports difficulty with keeping fluids down. She still has severe epigastric pain. She feels like her food is stuck. She has a prior history of Kalyn-en-Y gastric bypass performed in June 2013. She is 6 years out. Her lowest weight after surgery was 197 pounds. At her height of 5 foot, 5 inches, ideal body weight is 149 pounds. Highest weight was 304 pounds. Today she comes in weighing 212 pounds from 213 pounds, 1 years ago. She has maintained 1 pound weight loss from 1 year ago. Percent excess weight loss is 59 %. PAST MEDICAL HISTORY: 1. Super morbid obesity, BMI 50.7, initial 2. Dyslipidemia, now resolved. 3. Osteoarthritis of the knees including lower back. 4. Obstructive sleep apnea now resolved. 5. Gastroesophageal reflux disease, now resolved. 6. Panniculitis. 7. Colitis. PAST SURGICAL HISTORY: 1. Adjustable gastric band placement in May 2010. 2. Removal of adjustable gastric band November 2012. 3. Status post Kalyn-en-Y gastric bypass in June 2013. 4. EGD. 5. . 6. Hysterectomy. 7. Panniculectomy. 8. Colonoscopy. 9. Cholecystectomy. MEDICATIONS: 1. Multivitamin. 2. Cymbalta. ALLERGIES: IODINE including BETADINE. SOCIAL HISTORY: No active tobacco use. FAMILY HISTORY: Cancer of the breast, including lung and prostate cancer. REVIEW OF SYSTEMS: CONSTITUTIONAL: At her height of 5 foot, 5 inches, ideal body weight is 149 pounds. Highest weight was 304 pounds. Body mass index has been reduced from 50.7. RESPIRATORY: Resolved obstructive sleep apnea. ENDOCRINE: Resolved diabetes type 2. GASTROINTESTINAL: Has chronic diarrhea exacerbation with cholecystectomy. HEENT: No troubles with vision or hearing. CARDIOVASCULAR: No reports of hypertension or palpitations. MUSCULOSKELETAL: Improved bilateral lower extremity osteoarthritis especially of the knees and hips. Minimal lower back pain especially exacerbated from her pannus. NEURO: No reports of stroke or seizure disorders. PSYCH: New onset depression which she is medically treating. No psychosis or suicidal ideation. HEMATOLOGIC: No DVTs or thromboembolic events. PHYSICAL EXAM: VITAL SIGNS: 5 foot 5, 212 pounds. BMI 35.3 GENERAL: Well-developed female no acute distress. ABDOMEN: No palpable incisional hernias. Soft, tender at epigastrium and left upper quadrant. HEENT: No scleral icterus. Extraocular movements are intact. Moist buccal mucosa. NECK: Supple without lymphadenopathy. CHEST: Nonlabored respirations with equal bilateral excursions. CARDIOVASCULAR: Regular rate and rhythm. MUSCULOSKELETAL: No clubbing, cyanosis, or edema. NEURO: No focal or lateralizing signs. Cranial nerves 2 through 12 intact. PSYCH: Alert and oriented to person place and time. Appropriate affect. SKIN: Good skin turgor. Well-perfused. STUDIES: CT of the abdomen and pelvis reviewed in detail demonstrating no free air. No free fluid. ASSESSMENT: 1. Small bowel obstruction 2. Epigastric abdominal pain 3. Left upper quadrant pain 4. Status post Kalyn-en-Y gastric bypass. 5. Morbid obesity due to excess calories. 6. Body mass index reduced with 50.7 down to 35.5 PLAN: 1. She still has epigastric pain and feels like food is getting stuck. Recommend admission for small bowel obstruction. 2. Recommend upper endoscopy for gastric obstruction 3. IV fluid hydration 3. May need UGI Past Medical History Past Medical History: GERD/Reflux, Neurologic Disorder, Pneumonia, Syncope Additional Past Medical History / Comment(s): Epilepsy- A CHILD-LAST SEIZURE AT AGE 13, "borderline cholesterol-no tx" History of Any Multi-Drug Resistant Organisms: None Reported Past Surgical History: Bariatric Surgery, Section, Cholecystectomy, Hysterectomy, Tonsillectomy Additional Past Surgical History / Comment(s): Lap band insertion and removal followed by a gastric bypass, abdominoplasty Past Anesthesia/Blood Transfusion Reactions: Motion Sickness, Postoperative Nausea & Vomiting (PONV) Additional Past Anesthesia/Blood Transfusion Reaction / Comment(s): CLAUSTROPHOBIA, motion sickness as child, no PONV in a long time Past Psychological History: Anxiety Additional Psychological History / Comment(s): . Smoking Status: Current every day smoker Past Alcohol Use History: None Reported Additional Past Alcohol Use History / Comment(s): smokes 1/2 ppd, smoked for 1 1/2 yrs Past Drug Use History: None Reported - Past Family History Father Family Medical History: Cancer Additional Family Medical History / Comment(s): prostate CANCER Mother Family Medical History: Deep Vein Thrombosis (DVT), Pulmonary Embolus Additional Family Medical History / Comment(s): . Medications and Allergies Home Medications Medication Instructions Recorded Confirmed Type Omeprazole 40 mg PO DAILY 06/04/19 06/04/19 History Vitamin D 5,000units 10,000 units PO DAILY 06/04/19 06/04/19 History Vortioxetine Hydrobromide 10 mg PO DAILY 06/04/19 06/04/19 History [Trintellix] Omeprazole 40 mg PO DAILY #90 capsule. 06/05/19 Rx Sucralfate [Carafate] 1 gm PO BID #60 tablet 06/05/19 Rx Allergies Allergy/AdvReac Type Severity Reaction Status Date / Time codeine Allergy Severe Anaphylaxis Verified 06/04/19 14:48 iodine Allergy Severe Rash/Hives Verified 06/04/19 14:48 povidone-iodine AdvReac Rash/Hives Verified 06/04/19 14:48 [From Betadine] soap [From Betadine] AdvReac Rash/Hives Verified 06/04/19 14:48 Surgical - Exam Vital Signs Temp Pulse Resp BP Pulse Ox 98.1 F 69 16 140/74 99 06/04/19 14:19 06/04/19 14:19 06/04/19 14:19 06/04/19 14:19 06/04/19 14:19 Results - Labs 06/04/19 19:10 06/04/19 19:10 Abnormal Lab Results - Last 24 Hours (Table) 06/04/19 Range/Units 19:10 RBC 3.72 L (3.80-5.40) m/uL Assessment and Plan (1) Small bowel obstruction Status: Acute Code(s): K56.609 - UNSP INTESTNL OBST, UNSP TO PARTIAL VERSUS COMPLETE OBST SNOMED Code(s): 984256764 (2) Intractable nausea and vomiting Status: Acute Code(s): R11.2 - NAUSEA WITH VOMITING, UNSPECIFIED SNOMED Code(s): 866591540 (3) Epigastric abdominal pain Status: Acute Code(s): R10.13 - EPIGASTRIC PAIN SNOMED Code(s): 60342428 (4) Gastric outflow obstruction Status: Acute Code(s): K31.1 - ADULT HYPERTROPHIC PYLORIC STENOSIS SNOMED Code(s): 134731960 (5) Gastrojejunal anastomotic stricture Status: Acute Code(s): K91.89 - OTH POSTPROCEDURAL COMPLICATIONS AND DISORDERS OF DGSTV SYS SNOMED Code(s): 794610446 (6) Morbid obesity due to excess calories Status: Acute Code(s): E66.01 - MORBID (SEVERE) OBESITY DUE TO EXCESS CALORIES SNOMED Code(s): 876156616 (7) BMI 35.0-35.9,adult Status: Acute Code(s): Z68.35 - BODY MASS INDEX (BMI) 35.0-35.9, ADULT SNOMED Code(s): 019423668
[2019-06-04 19:46] LABS: African American GFR (CKD) >90 (>60 ml/min/1.73 sqM); Anion Gap 6 mmol/L; Blood Urea Nitrogen 16 mg/dL (7-17); Calcium 8.6 mg/dL (8.4-10.2); Carbon Dioxide 23 mmol/L (22-30); Chloride 110 mmol/L (98-107); Glucose 83 mg/dL (74-99); Magnesium 1.8 mg/dL (1.6-2.3); Non-African American GFR(CKD) >90 (>60 ml/min/1.73 sqM); Potassium 3.9 mmol/L (3.5-5.1); Sodium 139 mmol/L (137-145)
[2019-06-04] MEDS ORDERED: ACETAMINOPHEN IV (For NPO) 1,000 MG in EMPTY BAG 1 BAG IVPB PRN (20:52)
[2019-06-05] MEDS: ONDANSETRON 4 MG/2 ML VIAL IVP PRN ×2 (02:31→12:50)
[2019-06-05] MEDS: 0.9% NACL WITH KCL 20 MEQ/L 1,000 ML IV SCH (03:54)
[2019-06-05] MEDS: ALBUTEROL NEBULIZED 2.5 MG/3 ML INHALATION SCH ×4 (08:50→21:21)
[2019-06-05] MEDS ORDERED: IV FLUID CONTINUATION 800 ML IV ONE (14:12)
[2019-06-05] MEDS ORDERED: LIDOCAINE 1% INJ 10MG/ML (20 ML MDV) ONE (14:12)
[2019-06-05] MEDS ORDERED: PROPOFOL 10 MG/ML 20 ML VIAL IV ONE (14:12)
[2019-06-05] MEDS ORDERED: 0.9% NACL WITH KCL 20 MEQ/L 1,000 ML IV SCH (15:00)
--- NOTE | 2019-06-05 15:02 | P.PCN ---
Date of Procedure: 06/05/19 Description of Procedure: Date of Procedure: 06/05/19 PREOPERATIVE DIAGNOSIS: Bowel obstruction Epigastric abdominal pain Dysphagia s/p Kalyn-en-y gastric bypass. Nausea with vomiting. Morbid obesity due to excess calories, BMI 35.3 POSTOPERATIVE DIAGNOSIS: Bowel obstruction Epigastric abdominal pain Dysphagia s/p Kalyn-en-y gastric bypass. Nausea with vomiting. 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 SURGEON: Iraida Ashby MD ANESTHESIA: MAC. INDICATIONS: The patient is a 53-year-old female who presents with a history of dysphagia, gastric bypass including new-onset nausea and vomiting. Benefits and risks of the procedure were described. Informed consent was obtained. DESCRIPTION: The patient was brought into the endoscopy suite and laid in the left lateral decubitus position. After a timeout was confirmed, the procedure was initiated. An Olympus gastroscope was passed along the posterior oropharynx down to the distal esophagus where the squamocolumnar junction was unremarkable. The gastric pouch was entered. A gastrojejunal stricture of 15 mm was found as the adult gastroscope was 9.5 mm in size. A [facility] balloon dilator was placed through the scope. Final insufflation up to 20 mm was performed with a total of 2 minutes. The scope was advanced up to 60 cm from the incisors into the Kalyn limb. The mucosa of the gastrojejunal anastomosis was intact. However chronic gastrojejunal marginal ulcer was encountered. Orifice of 15 mm was dilated to 20 mm with chronic ulcerations at 12 and 3:00 marginal ulcers. No full-thickness injury was encountered. The GI tract was desufflated. The patient tolerated the procedure well. FINDINGS: Stricture of approximately 15 mm encountered. Chronic gastrojejunal ulceration encountered. Successful balloon dilatation to 20 mm. Orifice of 15 mm was dilated to 20 mm with chronic ulcerations at 12 and 3:00 marginal ulcers. RECOMMENDATIONS: Start combined therapy of Carafate and omeprazole of at least 4 weeks.
[2019-06-05 19:51] VITALS: BP 114/60; PULSE 63; TEMP 98.5
--- NOTE | 2019-06-05 20:53 | P.DS ---
Providers Date of admission: 06/04/19 13:46 Expected date of discharge: 06/05/19 Attending physician: Iarida Ashby Primary care physician: Stated None - Discharge Diagnosis(es) (1) BMI 35.0-35.9,adult Status: Acute (2) Epigastric abdominal pain Status: Acute (3) Gastric outflow obstruction Status: Acute (4) Gastrojejunal anastomotic stricture Status: Acute (5) Intractable nausea and vomiting Status: Acute (6) Morbid obesity due to excess calories Status: Acute (7) Small bowel obstruction Status: Acute Hospital Course: DIAGNOSES: 1. Small bowel obstruction 2. Epigastric abdominal pain 3. Left upper quadrant pain 4. Status post Kalyn-en-Y gastric bypass. 5. Morbid obesity due to excess calories. 6. Body mass index reduced with 50.7 down to 35.5 7. Gastrojejunal ulcer with obstruction COURSE: Abdominal pain. HISTORY OF PRESENT ILLNESS: Carin Copeland is a 53-year-old female who presented to the ER secondary to acute onset epigastric to left upper quadrant bowel pain following eating a meal. She presented with acute bowel obstruction. She had an upper endoscopy with dilation confirming gastrojejunal ulcer with obstruction. She was made nothing by mouth status including aggressive fluid hydration. She was started on omeprazole including Carafate. Her abdominal pain improved after tolerating diet. Follow-up in the office 2 weeks. Diet as tolerated. Patient Condition at Discharge: Stable Plan - Discharge Summary Discharge Rx Participant: No New Discharge Prescriptions: New Sucralfate [Carafate] 1 gm PO BID #60 tablet Omeprazole 40 mg PO DAILY #90 capsule. Continue Vortioxetine Hydrobromide [Trintellix] 10 mg PO DAILY Vitamin D 5,000units 10,000 units PO DAILY Omeprazole 40 mg PO DAILY Discharge Medication List Omeprazole 40 mg PO DAILY 06/04/19 [History] Vitamin D 5,000units 10,000 units PO DAILY 06/04/19 [History] Vortioxetine Hydrobromide [Trintellix] 10 mg PO DAILY 06/04/19 [History] Omeprazole 40 mg PO DAILY #90 capsule. 06/05/19 [Rx] Sucralfate [Carafate] 1 gm PO BID #60 tablet 06/05/19 [Rx] Follow up [facility]Ref[facility] [place] [facility] Patient Instructions/Handouts: Bowel Obstruction (DC), Esophageal Dilation (DC) Activity/Diet/Wound Care/Special Instructions: Diet as tolerated. Please pickle sorter prescriptions at local pharmacy Discharge Disposition: HOME SELF-CARE
[2019-06-06 03:53] VITALS: RESP 18
[2019-06-06] MEDS ORDERED: 0.9% NACL WITH KCL 20 MEQ/L 1,000 ML IV SCH (08:00)
== END 2019-06-05 22:50 | disposition home or self-care (01) ==
LOC: UNDOADMIN 13:46 → 4SSUR 13:46 → INTOOBSV 13:46 → UNDODISIN 06-05 22:50
PROVIDERS: ADMIT Surgery Plastic and Reconstructive Surgery; ATTEND Surgery Plastic and Reconstructive Surgery
PROC: 0D7A8ZZ Dilation of Jejunum, Via Natural or Artificial Opening Endoscopic (ICD-10-PCS; 2019-06-05)
PROC: 0D768ZZ Dilation of Stomach, Via Natural or Artificial Opening Endoscopic (ICD-10-PCS; principal; 2019-06-05 08:15)
DX: K56.699 Other intestinal obstruction unspecified as to partial versus complete obstruction (principal); K28.7 Chronic gastrojejunal ulcer without hemorrhage or perforation; K91.89 Other postprocedural complications and disorders of digestive system; K31.1 Adult hypertrophic pyloric stenosis; F41.9 Anxiety disorder, unspecified; K21.9 Gastro-esophageal reflux disease without esophagitis; F17.210 Nicotine dependence, cigarettes, uncomplicated; F40.240 Claustrophobia; E66.01 Morbid (severe) obesity due to excess calories; Z68.35 Body mass index [BMI] 35.0-35.9, adult; M16.0 Bilateral primary osteoarthritis of hip; M17.0 Bilateral primary osteoarthritis of knee; M47.816 Spondylosis without myelopathy or radiculopathy, lumbar region; Z79.899 Other long term (current) drug therapy; Z91.048 Other nonmedicinal substance allergy status; Z88.5 Allergy status to narcotic agent; Z88.8 Allergy status to other drugs, medicaments and biological substances; Z86.69 Personal history of other diseases of the nervous system and sense organs; Z87.01 Personal history of pneumonia (recurrent); Z90.49 Acquired absence of other specified parts of digestive tract; Z90.710 Acquired absence of both cervix and uterus; Z98.84 Bariatric surgery status; Z80.3 Family history of malignant neoplasm of breast; Z80.42 Family history of malignant neoplasm of prostate; Z80.1 Family history of malignant neoplasm of trachea, bronchus and lung; Z82.49 Family history of ischemic heart disease and other diseases of the circulatory system
CPT/HCPCS: 96374; 96375; 97161; 97165; 80048; 83735; 85025; 43249; G0378 ×2; G0379; J2405 ×2; J2001; J0131 ×2; J2704; C1726

== ENCOUNTER → 2019-06-04 | Outpatient (CLI) | payer BC ==
[2019-06-04 13:32] VITALS: BP 124/75; PULSE 77; TEMP 97.9; BMI 37.0
--- NOTE | 2019-06-04 13:33 | P.PN ---
Subjective Progress Note Date: 06/04/19 Was in the ER last night for acute abdominal pain with history of gastric bypass. She cannot pass flatus. She reports eating bread and salad prior to the event. CT reviewed. Findings of GJ small bowel obstruction. Recommend admission for small bowel obstruction.
== END | disposition home or self-care (01) ==
LOC: BARWHC3 13:13
PROVIDERS: ATTEND Surgery Plastic and Reconstructive Surgery
DX: K56.609 Unspecified intestinal obstruction, unspecified as to partial versus complete obstruction (principal); Z98.84 Bariatric surgery status
CPT/HCPCS: 99211

== ENCOUNTER → 2019-06-19 | Outpatient (CLI) | payer BC ==
[~2019-06-19] MED LIST changes: -LACTATED RINGERS 1,000 ML IV SCH; -LIDOCAINE 1% 20 ML VIAL (10MG/ML) FOR IV START INTRADERMA PRN; +SODIUM CHLORIDE 0.9% 1,000 ML IV ONE
[2019-06-19 10:44] VITALS: BMI 36.2
--- NOTE | 2019-06-19 10:54 | P.PN ---
Subjective Progress Note Date: 06/19/19 She reports crampy diarrhea. She can keep fluids down. SHe still has abominal pain. Labs vitamin d, calcium. She reports chronic gas bloat and chronic diarrhea. Recommend dx laparoscopy Fluids recommend UGI for abdominal pain. Objective - Vital Signs Vital signs: Vital Signs Temp 98.3 F 06/19/19 10:18 Pulse 71 06/19/19 10:18 Resp BP 121/82 06/19/19 10:18 Pulse Ox Intake & Output 06/18/19 06/19/19 06/19/19 18:59 06:59 18:59 Weight 98.883 kg
[2019-06-19 11:35] VITALS: BP 120/83; PULSE 88; RESP 14; TEMP 97.7
== END | disposition home or self-care (01) ==
LOC: BARWHC3 09:31
PROVIDERS: ATTEND Surgery Plastic and Reconstructive Surgery
DX: E86.0 Dehydration (principal)
CPT/HCPCS: 96360; 96361; 99211

== ENCOUNTER → 2019-06-26 | Outpatient (CLI) | payer BC ==
--- NOTE | 2019-06-26 13:05 | FL ---
EXAMINATION: Upper GI with small bowel follow through DATE: 06/26/2019 CLINICAL INDICATION: 53-year-old female with nausea and vomiting. Patient with previous lap band conv erted to a Kalyn-en-Y gastric bypass. Status post dilatation on 06/05/2019. Ulcer seen on endoscopy. COMPARISON: Correlation CT 06/03/2019 Total Fluoroscopy Time: 1 minute 49 seconds Total images: 51 FINDINGS: Initial credit collections manager image shows surgical staple lines left paramedian upper abdomen from Kalyn-en-Y gastric bypass. Cholecystectomy clips. Degenerative changes lower lumbar spine. The esophagus has a normal course, caliber, motility and mucosa. No hiatal hernia is identified. Only single contrast exam was performed utilizing thin barium due to the patient's bariatric surgery. There is prompt filling of the gastric pouch and subsequent prompt passage into jejunum across a fajardo nt gastrojejunostomy. Allowing for single contrast technique, no definite persistent filling defect and demonstrated. Following administration of barium, serial films were carried out to 3 hours. Barium is seen to reach the colon. Loops of jejunum and ileum are compressed and examined under fluoroscopy. The small bowel loops have a normal-caliber. Mucosal pattern is within normal limits. No intrinsic or extrinsic process is suspected. A normal appendix is visualized. IMPRESSION: 1. Single contrast technique was utilized given prior bariatric surgery (Kalyn-en-Y gastric bypass). 2. No specific abnormality of the esophagus. 3. Prompt passage into the gastric pouch and subsequently across the gastrojejunostomy which appears normal caliber. No specific abnormality seen. Of note, the pouch appears less distended than on CT of 06/03/2019. 4. Small bowel transit time of 3 hours which is upper limits of normal. The small bowel loops demonst rate a normal appearance and mucosal pattern.
== END | disposition home or self-care (01) ==
LOC: RADFLMAIN 07:47
PROVIDERS: ATTEND Surgery Plastic and Reconstructive Surgery
DX: R11.2 Nausea with vomiting, unspecified (principal); Z98.84 Bariatric surgery status
CPT/HCPCS: 74249

== ENCOUNTER 2019-09-19 12:06 | Observation (INO) | payer BC ==
[2019-09-19] MEDS ORDERED: ASPIRIN 81 MG PO STA (12:36)
[2019-09-19] MEDS ORDERED: NITROGLYCERIN OINT 1 INCH/GM PACKET TOPICAL STA (12:36)
[2019-09-19] MEDS ORDERED: NITROGLYCERIN SL TABS 0.4 MG TAB SUBLINGUAL STA (12:36)
[2019-09-19] MEDS ORDERED: HYDROcodone/APAP 10-325MG 1 EACH TAB PO ONE (12:38)
--- NOTE | 2019-09-19 12:38 | ED ---
General Adult HPI - General Chief complaint: Chest Pain Stated complaint: chest pain, dizzy Time Seen by Provider: 09/19/19 12:10 Source: patient, RN notes reviewed, old records reviewed Mode of arrival: ambulatory Limitations: no limitations - History of Present Illness Initial comments: This is a 53-year-old female presents emergency department with past medical history significant for borderline high cholesterol and a family history of heart disease in her father. Patient states about 9:30 today at work she started having chest pain with some shortness of breath and as the day progressed it radiated to her back and she became diaphoretic and lightheaded at that point she decided come the emergency department. Patient states she still experiencing the chest pain she also has a headache. Patient denies any recent fever chills or cough. Patient denies any abdominal pain patient denies any vomiting or diarrhea. Patient denies any recent injury or trauma. - Related Data Home Medications Medication Instructions Recorded Confirmed Ibuprofen [Advil] 400 mg PO Q8HR PRN 09/19/19 09/19/19 Vortioxetine Hydrobromide 20 mg PO QAM 09/19/19 09/19/19 [Trintellix] Allergies Allergy/AdvReac Type Severity Reaction Status Date / Time codeine Allergy Severe Anaphylaxis Verified 09/19/19 13:17 iodine Allergy Severe Rash/Hives Verified 09/19/19 13:17 povidone-iodine Allergy Rash/Hives Verified 09/19/19 13:17 [From Betadine] soap [From Betadine] Allergy Rash/Hives Verified 09/19/19 13:17 Review of Systems ROS Statement: Those systems with pertinent positive or pertinent negative responses have been documented in the HPI. ROS Other: All systems not noted in ROS Statement are negative. Past Medical History Past Medical History: GERD/Reflux, Neurologic Disorder, Pneumonia, Syncope Additional Past Medical History / Comment(s): Epilepsy- A CHILD-LAST SEIZURE AT AGE 13, "borderline cholesterol-no tx" History of Any Multi-Drug Resistant Organisms: None Reported Past Surgical History: Bariatric Surgery, Section, Cholecystectomy, Hysterectomy, Tonsillectomy Additional Past Surgical History / Comment(s): Lap band insertion and removal followed by a gastric bypass, abdominoplasty Past Anesthesia/Blood Transfusion Reactions: Motion Sickness, Postoperative Nausea & Vomiting (PONV) Additional Past Anesthesia/Blood Transfusion Reaction / Comment(s): CLAUSTROPHOBIA, motion sickness as child, no PONV in a long time Past Psychological History: Anxiety Smoking Status: Current every day smoker Past Alcohol Use History: None Reported Past Drug Use History: None Reported - Past Family History Father Family Medical History: Cancer Additional Family Medical History / Comment(s): prostate CANCER Mother Family Medical History: Deep Vein Thrombosis (DVT), Pulmonary Embolus Additional Family Medical History / Comment(s): . General Exam - General Exam Comments Initial Comments: GENERAL: Patient is well-developed and well-nourished. Patient is nontoxic and well- hydrated and is in mild distress. ENT: Neck is soft and supple. No significant lymphadenopathy is noted. Oropharynx is clear. Moist mucous membranes. Neck has full range of motion without eliciting any pain. EYES: The sclera were anicteric and conjunctiva were pink and moist. Extraocular movements were intact and pupils were equal round and reactive to light. Eyelids were unremarkable. PULMONARY: Unlabored respirations. Good breath sounds bilaterally. No audible rales rhonchi or wheezing was noted. CARDIOVASCULAR: There is a regular rate and rhythm without any murmurs gallops or rubs. ABDOMEN: Soft and nontender with normal bowel sounds. SKIN: Skin is clear with no lesions or rashes and otherwise unremarkable. NEUROLOGIC: Patient is alert and oriented x3. Cranial nerves II through XII are grossly intact. Motor and sensory are also intact. Normal speech, volume and content. Symmetrical smile. MUSCULOSKELETAL: Normal extremities with adequate strength and full range of motion. No lower extremity swelling or edema. No calf tenderness. LYMPHATICS: No significant lymphadenopathy is noted PSYCHIATRIC: Normal psychiatric evaluation. Limitations: no limitations Course Vital Signs 09/19/19 09/19/19 12:09 13:00 Temperature 98.1 F Pulse Rate 70 73 Respiratory 16 18 Rate Blood Pressure 124/85 113/80 O2 Sat by Pulse 100 99 Oximetry Medical Decision Making - Medical Decision Making EKG shows normal sinus rhythm at 75 bpm IL interval 254 QRS is 82 QT interval 362 QTC is 404. Patient's EKG shows no ST segment elevation or depression. Chest x-ray shows no acute normalities. Patient got 1 nitroglycerin sublingual and it completely resolved her pain. Patient also received aspirin and Nitropaste and heparin emergency department. I spoke with Dr. Frost he agreed to admit the patient admitted the patient for unstable angina continue the heparin has been Nitropaste on the floor. I wrote admitting orders I consulted cardiology - Lab Data Result diagrams: 09/19/19 12:32 09/19/19 12:32 Lab Results 09/19/19 09/19/19 09/19/19 Range/Units 12:32 12:32 12:32 WBC 8.1 (3.8-10.6) k/uL RBC 4.79 (3.80-5.40) m/uL Hgb 14.4 (11.4-16.0) gm/dL Hct 43.3 (34.0-46.0) % MCV 90.5 (80.0-100.0) fL MCH 30.1 (25.0-35.0) pg MCHC 33.3 (31.0-37.0) g/dL RDW 13.2 (11.5-15.5) % Plt Count 284 (150-450) k/uL Neutrophils % 64 % Lymphocytes % 27 % Monocytes % 4 % Eosinophils % 3 % Basophils % 2 % Neutrophils # 5.2 (1.3-7.7) k/uL Lymphocytes # 2.2 (1.0-4.8) k/uL Monocytes # 0.3 (0-1.0) k/uL Eosinophils # 0.2 (0-0.7) k/uL Basophils # 0.2 (0-0.2) k/uL PT 9.3 (9.0-12.0) sec INR 0.9 (<1.2) APTT 22.5 (22.0-30.0) sec Sodium 140 (137-145) mmol/L Potassium 4.4 (3.5-5.1) mmol/L Chloride 106 (98-107) mmol/L Carbon Dioxide 25 (22-30) mmol/L Anion Gap 9 mmol/L BUN 17 (7-17) mg/dL Creatinine 0.72 (0.52-1.04) mg/dL Est GFR (CKD-EPI)AfAm >90 (>60 ml/min/1.73 sqM) Est GFR (CKD-EPI)NonAf >90 (>60 ml/min/1.73 sqM) Glucose 81 (74-99) mg/dL Calcium 9.4 (8.4-10.2) mg/dL Magnesium 2.0 (1.6-2.3) mg/dL Total Bilirubin 0.3 (0.2-1.3) mg/dL AST 26 (14-36) U/L ALT 12 (4-34) U/L Alkaline Phosphatase 146 H (38-126) U/L Troponin I (0.000-0.034) ng/mL Total Protein 7.3 (6.3-8.2) g/dL Albumin 4.5 (3.5-5.0) g/dL 09/19/19 Range/Units 12:32 WBC (3.8-10.6) k/uL RBC (3.80-5.40) m/uL Hgb (11.4-16.0) gm/dL Hct (34.0-46.0) % MCV (80.0-100.0) fL MCH (25.0-35.0) pg MCHC (31.0-37.0) g/dL RDW (11.5-15.5) % Plt Count (150-450) k/uL Neutrophils % % Lymphocytes % % Monocytes % % Eosinophils % % Basophils % % Neutrophils # (1.3-7.7) k/uL Lymphocytes # (1.0-4.8) k/uL Monocytes # (0-1.0) k/uL Eosinophils # (0-0.7) k/uL Basophils # (0-0.2) k/uL PT (9.0-12.0) sec INR (<1.2) APTT (22.0-30.0) sec Sodium (137-145) mmol/L Potassium (3.5-5.1) mmol/L Chloride (98-107) mmol/L Carbon Dioxide (22-30) mmol/L Anion Gap mmol/L BUN (7-17) mg/dL Creatinine (0.52-1.04) mg/dL Est GFR (CKD-EPI)AfAm (>60 ml/min/1.73 sqM) Est GFR (CKD-EPI)NonAf (>60 ml/min/1.73 sqM) Glucose (74-99) mg/dL Calcium (8.4-10.2) mg/dL Magnesium (1.6-2.3) mg/dL Total Bilirubin (0.2-1.3) mg/dL AST (14-36) U/L ALT (4-34) U/L Alkaline Phosphatase (38-126) U/L Troponin I <0.012 (0.000-0.034) ng/mL Total Protein (6.3-8.2) g/dL Albumin (3.5-5.0) g/dL Critical Care Time Critical Care Time: Yes Total Critical Care Time: 35 Disposition Clinical Impression: Unstable angina pectoris Disposition: ADMITTED IP TO THIS HOSP Referrals: Hong Live III, MD [Primary Care Provider] - 1-2 days Time of Disposition: 13:57
[2019-09-19] MEDS ORDERED: ACETAMINOPHEN TAB 500 MG TAB PO STA (12:40)
[2019-09-19 12:44] LABS: Basophils # (A) 0.2 k/uL (0-0.2); Basophils % (A) 2 %; Eosinophils # (A) 0.2 k/uL (0-0.7); Eosinophils % (A) 3 %; HCT 43.3 % (34.0-46.0); HGB 14.4 gm/dL (11.4-16.0); Lymphocytes # (A) 2.2 k/uL (1.0-4.8); Lymphocytes % (A) 27 %; MCH 30.1 pg (25.0-35.0); MCHC 33.3 g/dL (31.0-37.0); MCV 90.5 fL (80.0-100.0); Mean Platelet Volume 8.3; Monocytes # (A) 0.3 k/uL (0-1.0); Monocytes % (A) 4 %; Neutrophils # (A) 5.2 k/uL (1.3-7.7); Neutrophils % (A) 64 %; Platelet Count 284 k/uL (150-450); RBC 4.79 m/uL (3.80-5.40); RDW 13.2 % (11.5-15.5); WBC 8.1 k/uL (3.8-10.6)
[2019-09-19 12:53] LABS: ALT 12 U/L (4-34); AST 26 U/L (14-36); African American GFR (CKD) >90 (>60 ml/min/1.73 sqM); Albumin 4.5 g/dL (3.5-5.0); Alkaline Phosphatase 146 U/L (38-126); Anion Gap 9 mmol/L; Blood Urea Nitrogen 17 mg/dL (7-17); Calcium 9.4 mg/dL (8.4-10.2); Carbon Dioxide 25 mmol/L (22-30); Chloride 106 mmol/L (98-107); Glucose 81 mg/dL (74-99); INR 0.9 (<1.2); Non-African American GFR(CKD) >90 (>60 ml/min/1.73 sqM); Partial Thromboplastin Time 22.5 sec (22.0-30.0); Potassium 4.4 mmol/L (3.5-5.1); Prothrombin Time 9.3 sec (9.0-12.0); Sodium 140 mmol/L (137-145); Total Bilirubin 0.3 mg/dL (0.2-1.3); Total Protein 7.3 g/dL (6.3-8.2)
[2019-09-19] MEDS ORDERED: HEPARIN SODIUM,PORCINE 5,000 UNIT/ML 1 ML VIAL IV ONE (13:33)
--- NOTE | 2019-09-19 13:43 | XR ---
EXAMINATION TYPE: XR chest 2V DATE OF EXAM: 09/19/2019 COMPARISON: 12/04/2013 HISTORY: Chest pain TECHNIQUE: Frontal and lateral views of the chest are obtained. FINDINGS: There is no focal air space opacity, pleural effusion, or pneumothorax seen. The cardiac silhouette size is within normal limits. The osseous structures are intact. Mild multilevel degener ative change of the spine. IMPRESSION: No acute cardiopulmonary process.
[2019-09-19] MEDS ORDERED: HEPARIN SOD,PORK IN 0.45% NACL 25,000 UNIT in 0.45% NACL 1 250ML.BAG IV SCH (13:45)
[2019-09-19] MEDS ORDERED: NITROGLYCERIN SL TABS 0.4 MG TAB SUBLINGUAL PRN (13:58)
[2019-09-19] MEDS ORDERED: SODIUM CHLORIDE 0.9% 500 ML 500 ML IV SCH (14:30)
[2019-09-19] MEDS: NITROGLYCERIN OINT 1 INCH/GM PACKET TOPICAL SCH ×2 (17:36→23:24)
[2019-09-19] MEDS ORDERED: ACETAMINOPHEN TAB 500 MG TAB PO PRN (19:09)
[2019-09-19] MEDS ORDERED: ALPRAZolam 0.25 MG TAB PO PRN (19:09)
[2019-09-19] MEDS: NICOTINE 14MG/24HR PATCH TRANSDERM SCH (20:04)
[2019-09-19] MEDS: PANTOPRAZOLE 40 MG TABLET PO SCH (20:29)
[2019-09-19] MEDS ORDERED: TEMAZEPAM 15 MG CAP PO PRN (21:00)
[2019-09-19] MEDS ORDERED: HEPARIN SODIUM,PORCINE 5,000 UNIT/ML 1 ML VIAL IV STA (22:06)
--- NOTE | 2019-09-19 22:47 | HP ---
HISTORY AND PHYSICAL DATE OF SERVICE: 09/19/2019 CHIEF COMPLAINT: Chest pain. HISTORY OF PRESENT ILLNESS: This 53-year-old woman with a past medical history of multiple medical problems, including history of GERD, history of pneumonia, history of epilepsy, history of bariatric surgery, section, history of anxiety, being followed by Maria T in the outpatient setting, apparently had chest pain at work. The patient had sharp pain about 9:30 in the morning, mostly in the right side of the chest radiating to the back. Patient also had some shortness of breath. Patient was diaphoretic and lightheaded and dizzy. The patient was taken to [facility] and admitted for evaluation and treatment. Interesting is the fact that the pain felt much better after nitroglycerin, according to her. There is no history of any fever, rigor or chills. No history of headache, loss of consciousness, seizures. An EKG done in the ER showed no acute changes. The initial labs, including troponins, were within normal limits. PAST MEDICAL HISTORY: GERD, history of pneumonia, history of epilepsy, history of bariatric surgery. HOME MEDICATIONS: 1. Ibuprofen p.r.n. 2. Trintellix 20 mg each morning. ALLERGIES: CODEINE, IODINE, PROVIDONE-IODINE, SOAP. FAMILY HISTORY: History of coronary artery disease in the father. History of prostate cancer. History of valve problems in the SOCIAL HISTORY: History of smoking, continued, ongoing. No history of alcohol intake. REVIEW OF SYSTEMS: ENT: No diminished hearing. No diminished vision. CARDIOVASCULAR SYSTEM: As mentioned earlier. RESPIRATORY SYSTEM: As mentioned earlier. GI: No nausea, vomiting. : No dysuria or retention. NERVOUS SYSTEM: No numbness, weakness. ALLERGY/IMMUNOLOGY: No asthma, hayfever. MUSCULOSKELETAL: As mentioned earlier. HEMATOLOGY/ONCOLOGY: No history of anemia. ENDOCRINE: No history of diabetes, hypothyroidism. CONSTITUTIONAL: As mentioned earlier. DERMATOLOGY: Negative. RHEUMATOLOGY: Negative. PSYCHIATRY: As mentioned earlier. PHYSICAL EXAMINATION: Patient alert and oriented x3. Pulse 67, blood pressure 99/60, respiration 18, temperature 97.3, pulse ox 93% on 2 L. HEENT: Conjunctivae normal. Oral mucosa moist. NECK: No jugular venous distention. No carotid bruit. No lymph node enlargement. CARDIOVASCULAR SYSTEM: S1, S2 muffled. No S3. No S4. RESPIRATORY SYSTEM: Breath sounds diminished at the bases. Scattered rhonchi and crackles. ABDOMEN: Soft, non-tender. No mass palpable. LEGS: No edema. No swelling. NERVOUS SYSTEM: Higher functions as mentioned earlier. Moves all 4 limbs. No focal motor or sensory deficit. LYMPHATICS: No lymph node palpable in neck, axillae or groin. SKIN: No ulcer, rash, bleeding. JOINTS: No active deforming arthropathy. LABS: Labs at this time show CBC within normal limits. INR is 0.9, PT is 9.3. Alkaline phosphatase 146. ASSESSMENT: 1. Chest pain; possible unstable angina. 2. Possible musculoskeletal chest pain. 3. Gastroesophageal reflux disease. 4. History of pneumonia. 5. History of syncope. 6. History of epilepsy. 7. History of bariatric surgery. 8. History of cholecystectomy. 9. History of lap band insertion and removal. 10.History of anxiety. 11.Continued ongoing nicotine dependence. 12.Obesity with body mass index of 36.6. RECOMMENDATIONS AND DISCUSSION: In this 53-year-old woman who presented with multiple medical problems, we will monitor the patient closely. Rule out myocardial infarction. Otherwise, unstable angina protocol. Cardiology consultation. Patient will require further testing such as stress test. We will continue to monitor. Otherwise, prognosis guarded. Further recommendations to follow. A 2D echo will be ordered. A copy of this dictation is being forwarded to Dr. Live, who is the primary physician. SAYRA / NIKO: [id number] / MTDD
[2019-09-20 05:36] LABS: Basophils % (A) 1 %; Eosinophils # (A) 0.1 k/uL (0-0.7); Eosinophils % (A) 2 %; HCT 37.6 % (34.0-46.0); HGB 12.3 gm/dL (11.4-16.0); Lymphocytes # (A) 1.7 k/uL (1.0-4.8); Lymphocytes % (A) 29 %; MCH 29.4 pg (25.0-35.0); MCHC 32.7 g/dL (31.0-37.0); Mean Platelet Volume 7.9; Monocytes # (A) 0.3 k/uL (0-1.0); Monocytes % (A) 5 %; Neutrophils # (A) 3.5 k/uL (1.3-7.7); Neutrophils % (A) 62 %; Platelet Count 264 k/uL (150-450); RBC 4.18 m/uL (3.80-5.40); RDW 13.2 % (11.5-15.5); WBC 5.8 k/uL (3.8-10.6)
[2019-09-20 06:06] LABS: African American GFR (CKD) >90 (>60 ml/min/1.73 sqM); Anion Gap 4 mmol/L; Blood Urea Nitrogen 19 mg/dL (7-17); Calcium 8.8 mg/dL (8.4-10.2); Carbon Dioxide 26 mmol/L (22-30); Chloride 108 mmol/L (98-107); Cholesterol 176 mg/dL (<200); Glucose 88 mg/dL (74-99); HDL Cholesterol 57 mg/dL (40-60); LDL Cholesterol,Calculated 93 mg/dL (0-99); Non-African American GFR(CKD) >90 (>60 ml/min/1.73 sqM); Potassium 4.2 mmol/L (3.5-5.1); Sodium 138 mmol/L (137-145); Triglycerides 132 mg/dL (<150)
[2019-09-20] MEDS: NITROGLYCERIN OINT 1 INCH/GM PACKET TOPICAL SCH (06:26)
[2019-09-20 07:29] VITALS: RESP 18
--- NOTE | 2019-09-20 08:09 | CONS ---
CONSULTATION Carin Copeland is a 53-year-old lady with history of some mild depression. She does not have any hypertension, diabetes, or any other major medical problems. She is status post a lap band surgery several years ago and subsequently had the lap band taken out as well. She also has had a previous section. 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 She came into the hospital mainly with what seems to be an episode of sharp discomfort in the chest. This started off on and off while at work. This was on and off pain lasted a few seconds and subsequently the pain seemed to be more consistent and then she had a pressure-like feeling that lasted maybe a minute or two. With these symptoms, she came into the hospital. Her discomfort in the chest was very atypical, sharp, lasting a few seconds. She also did break into a sweat, but had no nausea. With activity, the pain did not get worse in fact she felt a little better. She was given 1 sublingual nitroglycerin and felt relief. However, the relief seemed to be instantaneous and pain was inconsistent and it is unclear if the nitroglycerin really program provided any relief or not. However she is asymptomatic. Physical exam is unremarkable. EKGs and troponins are normal. PAST MEDICAL HISTORY: Remarkable for some underlying depression and degenerative joint disease. She is status post lap band surgery and also removal of lap band and sections. MEDICATIONS: At home include ibuprofen p.r.n., Trintellix 20 mg daily. ALLERGIES: She is allergic to CODEINE and IODINE-RELATED PRODUCTS. Patient is a smoker, continues to smoke. Does not consume alcohol. She has a family history of CAD, but not premature. PHYSICAL EXAMINATION: Blood pressure is 100/60, pulse rate is 70 per minute, regular. HEENT: Unremarkable. Fundus was not examined by me. Neck is supple. No JVD. I do not hear a carotid bruit. There is no thyromegaly. Heart exam reveals S1, S2 heard normally. No rub, murmur or gallop. Lungs are clear. Abdomen is soft, nontender. Lower extremity reveal normal pulses. No edema. Central nervous system is normal. EKG revealed sinus mechanism, no acute changes. IMPRESSION: 1. Atypical chest pain. 2. History of depression. RECOMMENDATIONS: Patient's pain is very atypical. I am recommending that we discontinue IV heparin and nitroglycerin paste, place her on 12.5 mg of metoprolol and aspirin 81 mg daily and subcu heparin, increase activity and have her ambulate the hallways briskly. If she has no further symptoms, she can be discharged and I will perform a stress test as an outpatient. If she has any symptoms, I will consider coronary angiography. I discussed my thoughts in detail with the patient. Thank you very much for the consult. SAYRA / NIKO: [id number] /
[2019-09-20] MEDS: PANTOPRAZOLE 40 MG TABLET PO SCH (08:23)
[2019-09-20] MEDS: NICOTINE 14MG/24HR PATCH TRANSDERM SCH (08:24)
[2019-09-20] MEDS ORDERED: HEPARIN SODIUM,PORCINE 5,000 UNIT/ML 1 ML VIAL SQ SCH (09:00)
[2019-09-20] MEDS ORDERED: ASPIRIN 81 MG PO SCH (09:00)
[2019-09-20] MEDS ORDERED: VORTIOXETINE HYDROBROMIDE 20 MG TABLET PO SCH (09:00)
[2019-09-20] MEDS ORDERED: ASPIRIN 325 MG TAB PO SCH (09:00)
[2019-09-20] MEDS ORDERED: METOPROLOL TARTRATE 12.5 MG TAB PO SCH (09:00)
[2019-09-20 11:54] VITALS: BP 116/69; PULSE 70; TEMP 98
--- NOTE | 2019-09-20 15:01 | ECHOF ---
Referral Reason:chest pain MEASUREMENTS -------- HEIGHT: 165.1 cm WEIGHT: 100.2 kg BP: 94/59 RVIDd: 3.6 cm (< 3.3) IVSd: 1.2 cm (0.6 - 1.1) LVIDd: 3.6 cm (3.9 - 5.3) LVPWd: 1.3 cm (0.6 - 1.1) IVSs: 1.5 cm LVIDs: 2.9 cm LVPWs: 1.4 cm LA Diam: 4.0 cm (2.7 - 3.8) LAESV Index (A-L): 27.58 ml/m Ao Diam: 2.9 cm (2.0 - 3.7) AV Cusp: 1.8 cm (1.5 - 2.6) LA Diam: 4.0 cm (2.7 - 3.8) MV EXCURSION: 13.536 mm (> 18.000) MV EF SLOPE: 69 mm/s (70 - 150) EPSS: 0.2 cm MV E Kurt: 0.73 m/s MV DecT: 151 ms MV A Kurt: 0.81 m/s MV E/A Ratio: 0.90 RAP: 5.00 mmHg RVSP: 17.05 mmHg FINDINGS -------- Sinus rhythm. This was a technically good study. LV size, wall thickness and systolic function are normal, with an EF greater than 55%. The left keysha tricular size is normal. The right ventricle is normal in size. The left atrial size is normal. Normal LA size by volume 22+/-6 ml/m2. The right atrial size is normal. The aortic valve is trileaflet, and appears structurally normal. No aortic stenosis or regurgitation. Mild mitral regurgitation is present. Mild tricuspid regurgitation present. Right ventricular systolic pressure is normal at < 35 mmHg. There is no evidence of pulmonary hypertension. There is no pulmonic regurgitation present. The aortic root size is normal. There is no pericardial effusion. CONCLUSIONS -------- 1. Sinus rhythm. 2. This was a technically good study. 3. LV size, wall thickness and systolic function are normal, with an EF greater than 55%. 4. The left ventricular size is normal. 5. The right ventricle is normal in size. 6. The left atrial size is normal. 7. Normal LA size by volume 22+/-6 ml/m2. 8. The right atrial size is normal. 9. The aortic valve is trileaflet, and appears structurally normal. No aortic stenosis or regurgitati on. 10. Mild mitral regurgitation is present. 11. Mild tricuspid regurgitation present. 12. Right ventricular systolic pressure is normal at < 35 mmHg. 13. There is no evidence of pulmonary hypertension. 14. There is no pulmonic regurgitation present. 15. The aortic root size is normal. 16. There is no pericardial effusion. MOLDING SUPERVISOR: Rayne Hyman RDCS
--- NOTE | 2019-09-21 06:41 | DS ---
DISCHARGE SUMMARY DATE OF SERVICE: 09/20/2019 FINAL DIAGNOSES: 1. Chest pain, myocardial infarction ruled out. 2. Possible musculoskeletal chest pain. 3. History of gastroesophageal reflux disease. 4. History of pneumonia. 5. History of syncope. 6. History of epilepsy. 7. History of bariatric surgery. 8. History of cholecystectomy. 9. History of lap band insertion and removal. 10.History of anxiety. 11.Continued ongoing nicotine dependence. 12.Obesity with body mass index 36.6. 13.Hypertension. DISCHARGE DISPOSITION: The patient will be discharged in stable condition with guarded prognosis. Cardiology cleared for discharge with outpatient followup plans. HISTORY OF PRESENT ILLNESS: This 53-year-old woman with a past medical history of multiple medical problems being followed by Dr. Live in the outpatient setting was admitted with chest pain which radiated into the back. The patient was monitored closely. Myocardial infarction ruled out. The patient improved significantly. Cardiology saw the patient. Two-D echo did not show acute abnormality. The patient was discharged in stable condition with guarded prognosis. DISCHARGE ADVICE AND MEDICATIONS: 1. Diet is cardiac diet. 2. Activity limited until followup. 3. Follow up with Cardiology as recommended. 4. Follow up with Dr. Live as recommended. DISCHARGE MEDICATIONS: 1. Ibuprofen 400 mg q8h p.r.n. 2. Vortioxetine 10 mg p.o. daily. 3. Lopressor 12.5 mg p.o. daily. Once again the patient will be discharged in stable condition with guarded prognosis. Consider possible outpatient stress test by Cardiology. MMODL / IJN: [id number] /
== END 2019-09-20 12:08 | disposition home or self-care (01) ==
LOC: EC 12:06 → 1SOBS 14:06
PROVIDERS: ADMIT Hospitalist; ATTEND Hospitalist
DX: R07.89 Other chest pain (principal); K21.9 Gastro-esophageal reflux disease without esophagitis; G40.909 Epilepsy, unspecified, not intractable, without status epilepticus; F40.240 Claustrophobia; F17.200 Nicotine dependence, unspecified, uncomplicated; F41.9 Anxiety disorder, unspecified; I10 Essential (primary) hypertension; E66.9 Obesity, unspecified; Z68.36 Body mass index [BMI] 36.0-36.9, adult; Z98.84 Bariatric surgery status; Z79.1 Long term (current) use of non-steroidal anti-inflammatories (NSAID); Z79.899 Other long term (current) drug therapy; Z88.5 Allergy status to narcotic agent; Z88.8 Allergy status to other drugs, medicaments and biological substances; Z90.49 Acquired absence of other specified parts of digestive tract; Z90.710 Acquired absence of both cervix and uterus; Z90.89 Acquired absence of other organs; Z82.49 Family history of ischemic heart disease and other diseases of the circulatory system; Z80.42 Family history of malignant neoplasm of prostate; Z83.2 Family history of diseases of the blood and blood-forming organs and certain disorders involving the immune mechanism
CPT/HCPCS: 93005 ×2; 96366 ×3; 96376 ×3; 96365; 99291; 36415; 93306; 80061; 80053; 80048; 83735; 84484 ×2; 85025 ×2; 85610; 85730 ×2; 71046; G0378 ×2; J1644 ×3

== ENCOUNTER → 2020-02-06 | Outpatient (CLI) | payer BC ==
--- NOTE | 2020-02-06 08:16 | MM ---
Reason for exam: additional evaluation requested from prior study. Last mammogram was performed 1 year and 11 months ago. History: Family history of breast cancer in maternal grandmother at age 70. Physical Findings: Nurse did not find any significant physical abnormalities on exam. MG 3D Diag Mammo W/Cad TORITO Bilateral CC and MLO view(s) were taken. Prior study comparison: February 28, 2018, bilateral MG 3d diag mammo w/cad TORITO. March 22, 2017, bilateral MG 3d screening mammo w/cad. There are scattered fibroglandular densities. No significant new findings when compared with previous films. These results were verbally communicated with the patient and result sheet given to the patient on 02/06/20. ASSESSMENT: Benign, BI-RAD 2 RECOMMENDATION: Routine screening mammogram of both breasts in 1 year.
== END | disposition home or self-care (01) ==
LOC: RADMAMWWP 07:05
PROVIDERS: ATTEND Family Medicine
DX: N64.52 Nipple discharge (principal)
CPT/HCPCS: 71046; 77062; 77066

== ENCOUNTER → 2020-02-06 | Outpatient (CLI) | payer BC ==
--- NOTE | 2020-02-06 09:03 | XR ---
EXAMINATION TYPE: XR chest 2V DATE OF EXAM: 02/06/2020 COMPARISON: 09/19/2019 TECHNIQUE: PA and lateral views submitted. HISTORY: Dizziness FINDINGS: The lungs are clear and there is no pneumothorax, pleural effusion, or focal pneumonia. Hypertrophi c and degenerative change of the spine. Arthropathy of the shoulders. No overt failure. Heart size no rmal. IMPRESSION: 1. No acute process.
== END | disposition home or self-care (01) ==
LOC: RADXRMAIN 07:45
PROVIDERS: ATTEND Family Medicine
DX: R61 Generalized hyperhidrosis (principal)
CPT/HCPCS: 71046

== ENCOUNTER → 2020-05-07 | Outpatient (CLI) | payer BC ==
--- NOTE | 2020-05-07 22:42 | MR ---
EXAMINATION TYPE: MR brain wo/w con DATE OF EXAM: 05/07/2020 COMPARISON: None HISTORY: Dizziness, headaches, blurred vision right eye CONTRAST: Performed utilizing 10 mL intravenous Gadavist gadolinium contrast. TECHNIQUE: Multiplanar, multiecho imaging on a 3.0 Mirian magnet is performed through the brain. Stud y is performed within 24 hours of arrival to the hospital. The craniovertebral junction is normal. The pituitary is normal. Optic chiasm is normal. Pituitary stalk is midline. Diffusion-weighted imaging is performed. No abnormal hyperintensity is present to suggest an acute i ntracranial infarct or acute ischemic change. There are scattered punctate areas of hyperintensity on T2 and Inversion Recovery weighted sequences which are non-specific but can be related to microvascular ischemic changes. Ventricles and sulci are appropriate for the patient age. No suspicious enhancement is evident. There is a retention cyst within the left sphenoid sinus region mild mucosal thickening within ethmoi d air cells. Globes appear symmetrical. Optic nerves appear unremarkable. Extraocular muscles are normal. IMPRESSIONS: 1. No acute intracranial process pre and postcontrast MRI brain
== END | disposition home or self-care (01) ==
LOC: RADMRIMAIN 20:45
PROVIDERS: ATTEND Family Medicine
DX: R42 Dizziness and giddiness (principal); H53.9 Unspecified visual disturbance
CPT/HCPCS: 70553; A9585

== ENCOUNTER 2020-10-27 18:10 | Emergency (ER) | payer BC ==
[2020-10-27 19:37] VITALS: BP 114/72; PULSE 88; RESP 18; TEMP 98
--- NOTE | 2020-10-27 20:14 | ED ---
Lower Extremity Injury HPI - General Chief Complaint: Extremity Injury, Lower Stated Complaint: foot injury Time Seen by Provider: 10/27/20 19:42 Source: patient Mode of arrival: ambulatory Limitations: no limitations - History of Present Illness Initial Comments: 54-year-old female patient presents to the emergency department today for evaluation of right foot pain. Patient states that couple days ago she was getting down out of her vehicle when she felt a snap in the top of her foot. States that her foot swelled up today. States she does have pain with walking but it is improved with rest. Denies any calf pain or tenderness. Denies any previous injury to the foot. States she does have some mild tingling in her toes. Denies numbness. Denies falling or any other injury. - Related Data Home Medications Medication Instructions Recorded Confirmed Ibuprofen [Advil] 400 mg PO Q8HR PRN 09/19/19 03/04/20 Vortioxetine Hydrobromide 20 mg PO QAM 09/19/19 03/04/20 [Trintellix] Cholecalciferol (Vitamin D3) 125 mg PO DAILY 03/04/20 03/04/20 [Vitamin D3] Iron 65 mg PO DAILY 03/04/20 03/04/20 Mv-Min/Folic/Vit K/Lut/Urpm463 1 tab PO DAILY 03/04/20 03/04/20 [Alive Women's 50 Plus Tablet] Omeprazole 40 mg PO DAILY 03/04/20 03/04/20 Venlafaxine HCl [Effexor] 75 mg PO DAILY 03/04/20 03/04/20 Vitamin A 5,000 unit PO DAILY 03/04/20 03/04/20 Previous Rx's Medication Instructions Recorded Metoprolol Tartrate [Lopressor] 12.5 mg PO DAILY #30 tab 09/20/19 Allergies Allergy/AdvReac Type Severity Reaction Status Date / Time codeine Allergy Severe Anaphylaxis Verified 10/27/20 19:36 iodine Allergy Severe Rash/Hives Verified 10/27/20 19:36 povidone-iodine Allergy Rash/Hives Verified 10/27/20 19:36 [From Betadine] soap [From Betadine] Allergy Rash/Hives Verified 10/27/20 19:36 Review of Systems ROS Statement: Those systems with pertinent positive or pertinent negative responses have been documented in the HPI. ROS Other: All systems not noted in ROS Statement are negative. Past Medical History Past Medical History: GERD/Reflux, Neurologic Disorder, Pneumonia, Syncope Additional Past Medical History / Comment(s): Epilepsy- A CHILD-LAST SEIZURE AT AGE 13, "borderline cholesterol-no tx" History of Any Multi-Drug Resistant Organisms: None Reported Past Surgical History: Bariatric Surgery, Section, Cholecystectomy, Hysterectomy, Tonsillectomy Additional Past Surgical History / Comment(s): Lap band insertion and removal followed by a gastric bypass, abdominoplasty Past Anesthesia/Blood Transfusion Reactions: Motion Sickness, Postoperative Nausea & Vomiting (PONV) Additional Past Anesthesia/Blood Transfusion Reaction / Comment(s): CLAUSTROPHOBIA, motion sickness as child, no PONV in a long time Past Psychological History: Anxiety Smoking Status: Unknown if ever smoked Past Alcohol Use History: None Reported Past Drug Use History: None Reported - Past Family History Father Family Medical History: Cancer Additional Family Medical History / Comment(s): prostate CANCER Mother Family Medical History: Deep Vein Thrombosis (DVT), Pulmonary Embolus Additional Family Medical History / Comment(s): . General Exam Limitations: no limitations General appearance: alert, in no apparent distress, other (This is a well-deve loped, well-nourished adult female patient in no acute distress. Vital signs upon presentation are temperature 98.0F, pulse 88, respirations 18, blood pressure 114/72, pulse ox 98% on room air.) Eye exam: Present: normal appearance, PERRL, EOMI. Absent: scleral icterus, conjunctival injection, periorbital swelling ENT exam: Present: normal exam, normal oropharynx, mucous membranes moist Respiratory exam: Present: normal lung sounds bilaterally. Absent: respiratory distress, wheezes, rales, rhonchi, stridor Cardiovascular Exam: Present: regular rate, normal rhythm, normal heart sounds. Absent: systolic murmur, diastolic murmur, rubs, gallop, clicks Extremities exam: Present: full ROM, tenderness (Over the dorsal aspect of the right foot over the fourth metatarsal. No tarsal tenderness.), normal capillary refill, other (Skin to the right foot is pink, warm, dry. There is generalized soft tissue swelling. Pedal and posttibial pulses 2+. No ankle tenderness, no proximal tib-fib tenderness.). Absent: normal inspection, pedal edema, joint swelling, calf tenderness Neurological exam: Present: alert, oriented X3, CN II-XII intact Psychiatric exam: Present: normal affect, normal mood Skin exam: Present: warm, dry, intact, normal color. Absent: rash Course Vital Signs 10/27/20 19:32 Temperature 98.0 F Pulse Rate 88 Respiratory 18 Rate Blood Pressure 114/72 O2 Sat by Pulse 98 Oximetry Medical Decision Making - Medical Decision Making 54-year-old female patient presented to the emergency department today for evaluation of right foot pain and swelling after injury a couple of days ago. Physical examination did reveal generalized swelling to the foot. Tenderness over the fourth metatarsal. X-ray was negative. We did discuss sprain as a cause for her symptoms. She is given an Chaz wrap. Educated regarding rest, ice, elevation. Instructed take Tylenol and Motrin for pain control. She is instructed to follow-up with orthopedics for symptoms are not improved over the next week. Return parameters were discussed in detail. She verbalizes underst anding and agrees with this plan. I attending is Dr. Flores. - Radiology Data Radiology results: report reviewed, image reviewed 3 views of the right foot are obtained. Report is reviewed in its entirety. Impression by Dr. Reyna shows no acute osseous abnormality. Disposition Clinical Impression: Foot sprain Disposition: HOME SELF-CARE Condition: Good Instructions (If sedation given, give patient instructions): Foot Sprain (ED) Additional Instructions: Use Chaz wrap for comfort and support. Rest, ice, elevate the foot. Take Tylenol and Motrin for pain control. Follow-up with orthopedics if her symptoms are not improved after one week. Return to the emergency department for any new, worsening, or concerning symptoms. Is patient prescribed a controlled substance at d/c from ED?: No Referrals: Hong Live III, MD [Primary Care Provider] - 1-2 days Dre Gamez DO [Doctor of Osteopathic Medicine] - 1-2 days Time of Disposition: 20:20
--- NOTE | 2020-10-27 20:17 | XR ---
Result: History: Pain. Comparison: None available. Technique: 3 views of the right foot. Findings: The bone mineralization is appropriate for age. No acute fracture or dislocation is seen. The visualized osseous structures are in anatomic alignmen t. The joint spaces are preserved. Small calcaneal enthesophytes. Impression: No acute osseous abnormality.
== END 2020-10-27 20:30 | disposition home or self-care (01) ==
LOC: EC 18:10
DX: S93.601A Unspecified sprain of right foot, initial encounter (principal); K21.9 Gastro-esophageal reflux disease without esophagitis; G40.909 Epilepsy, unspecified, not intractable, without status epilepticus; F41.9 Anxiety disorder, unspecified; Z79.1 Long term (current) use of non-steroidal anti-inflammatories (NSAID); X50.9XXA Other and unspecified overexertion or strenuous movements or postures, initial encounter
CPT/HCPCS: 99283

== ENCOUNTER → 2021-01-05 | Outpatient (CLI) | payer BC ==
[2021-01-05 11:08] LABS: INR 0.9 (<1.2); Partial Thromboplastin Time 23.7 sec (22.0-30.0); Prothrombin Time 9.4 sec (9.0-12.0)
[2021-01-05 15:06] LABS: HCT 39.3 % (37.2-46.3); HGB 12.4 g/dL (12.0-15.0); MCH 28.9 pg (27.0-32.0); MCHC 31.6 g/dL (32.0-37.0); MCV 91.6 fL (80.0-97.0); Mean Platelet Volume 11.1 fL (9.5-12.2); Platelet Count 272 X 10*3/uL (140-440); RBC 4.29 X 10*6/uL (4.10-5.20); RDW 13.2 % (11.5-14.5); WBC 5.83 X 10*3/uL (4.50-10.00)
[2021-01-05 18:21] LABS: Hemoglobin A1C 5.6 % (4.0-6.0)
[2021-01-06 00:11] LABS: % Iron Saturation 14.17 (12.00-45.00); African American GFR (CKD) 96.9 (60.0-200.0); Albumin 4.5 g/dL (3.80-4.90); Albumin/Globulin Ratio 2.25 (1.60-3.17); Anion Gap 8.6 mmol/L (4.00-12.00); BUN/Creat Ratio 17.5 Ratio (12.00-20.00); Calcium 9.1 mg/dL (8.7-10.3); Carbon Dioxide 24.4 mmol/L (21.6-31.8); Non-African American GFR(CKD) 83.6 (60.0-200.0); Phosphorus 4.1 mg/dL (2.4-5.1); Potassium 4.5 mmol/L (3.5-5.5); Total Bilirubin 0.2 mg/dL (0.3-1.2); Total Protein 6.5 g/dL (6.2-8.2)
[2021-01-06 00:12] LABS: Chol/HDL Ratio 4.04; LDL Cholesterol,Calculated 105.4 mg/dL (0.0-131.0); Magnesium 1.9 mg/dL (1.5-2.4); VLDL Calculation 40.6 mg/dL (5.00-40.00)
[2021-01-06 00:22] LABS: Ferritin 35.1 ng/mL (10.0-291.0)
[2021-01-06 00:25] LABS: Folate, Serum 6.5 ng/mL
[2021-01-06 13:28] LABS: Zinc, Serum 55 ug/dL (60-130)
[2021-01-07 06:45] LABS: Vitamin A 36 ug/dL (38-106)
[2021-01-07 06:55] LABS: Vit B1(Thiamine) 45 ug/L (38-122)
== END | disposition home or self-care (01) ==
LOC: LABWHC1 08:15
PROVIDERS: ATTEND Surgery Plastic and Reconstructive Surgery
DX: E66.01 Morbid (severe) obesity due to excess calories (principal); E89.1 Postprocedural hypoinsulinemia; D50.8 Other iron deficiency anemias; K90.89 Other intestinal malabsorption; E55.9 Vitamin D deficiency, unspecified; K74.1 Hepatic sclerosis; N19 Unspecified kidney failure; K50.90 Crohn's disease, unspecified, without complications; Z98.84 Bariatric surgery status
CPT/HCPCS: 36415; 80053; 80061; 82306; 82525; 82607; 82728; 82746; 83036; 83540; 83550; 83735; 83970; 84100; 84134; 84255; 84425; 84443; 84590; 84630; 85027; 85610; 85730

== ENCOUNTER 2021-01-17 07:36 | Day surgery (SDC) | payer BC ==
[2021-01-13 11:14] VITALS: BMI 36.6
[~2021-01-17 07:36] MED LIST changes: +LIDOCAINE 1% (10MG/ML) FOR IV START INTRADERMA PRN; -SODIUM CHLORIDE 0.9% 1,000 ML IV ONE
[2021-01-17 07:53] VITALS: TEMP 98.2
[2021-01-17] MEDS ORDERED: LIDOCAINE 1% (10MG/ML) FOR IV START INTRADERMA ONE (08:00)
[2021-01-17] MEDS: LACTATED RINGERS 1,000 ML IV SCH ×2 (08:00→08:16)
--- NOTE | 2021-01-17 08:00 | P.GSHP ---
History of Present Illness H&P Date: 01/17/21 CHIEF COMPLAINT: GERD HISTORY OF PRESENT ILLNESS: The patient is a 55-year-old female who presents reports gastroesophageal reflux disease. Upper endoscopy was offered for further evaluation and management. PAST MEDICAL HISTORY: Please see list. PAST SURGICAL HISTORY: Please see list. MEDICATIONS: Please see list. ALLERGIES: Please see list. SOCIAL HISTORY: No illicit drug use FAMILY HISTORY: No reports of Crohn disease or ulcerative colitis. REVIEW OF ORGAN SYSTEMS: CONSTITUTIONAL: No reports of fevers or chills. GI: Denies any blood in stools or constipation. PHYSICAL EXAM: VITAL SIGNS: Stable GENERAL: Well-developed and pleasant in no acute distress. HEENT: No scleral icterus. Extraocular movements grossly intact. Moist buccal mucosa. NECK: Supple without lymphadenopathy. CHEST: Unlabored respirations. Equal bilateral excursions. CARDIOVASCULAR: Regular rate and rhythm. Distal 2+ pulses. ABDOMEN: Soft, nondistended. MUSCULOSKELETAL: No clubbing, cyanosis, or edema. ASSESSMENT: 1. Gastroesophageal reflux disease PLAN: 1. Recommend proceeding with an upper endoscopy Past Medical History Past Medical History: GERD/Reflux, Hyperlipidemia, Neurologic Disorder, Pneumonia, Syncope Additional Past Medical History / Comment(s): Epilepsy- A CHILD-LAST SEIZURE AT AGE 13, History of Any Multi-Drug Resistant Organisms: None Reported Past Surgical History: Bariatric Surgery, Section, Cholecystectomy, Hysterectomy, Tonsillectomy Additional Past Surgical History / Comment(s): Lap band insertion and removal followed by a gastric bypass, abdominoplasty Past Anesthesia/Blood Transfusion Reactions: Motion Sickness, Postoperative Nausea & Vomiting (PONV) Additional Past Anesthesia/Blood Transfusion Reaction / Comment(s): CLAUSTROPHOBIA, motion sickness as child, no PONV in a long time Smoking Status: Current every day smoker - Past Family History Father Family Medical History: Cancer Additional Family Medical History / Comment(s): prostate CANCER Mother Family Medical History: Deep Vein Thrombosis (DVT), Pulmonary Embolus Additional Family Medical History / Comment(s): . Medications and Allergies Home Medications Medication Instructions Recorded Confirmed Type Omeprazole [PriLOSEC] 40 mg PO DAILY #90 cap 12/08/20 01/17/21 Rx Atorvastatin [Lipitor] 20 mg PO DAILY 01/13/21 01/17/21 History FLUoxetine HCL [PROzac] 20 mg PO DAILY 01/13/21 01/17/21 History Allergies Allergy/AdvReac Type Severity Reaction Status Date / Time codeine Allergy Severe Anaphylaxis Verified 01/17/21 07:49 iodine Allergy Severe Rash/Hives Verified 01/17/21 07:49 povidone-iodine Allergy Rash/Hives Verified 01/17/21 07:49 [From Betadine] soap [From Betadine] Allergy Rash/Hives Verified 01/17/21 07:49 Surgical - Exam Vital Signs Temp Pulse Resp BP Pulse Ox 98.2 F 81 16 134/65 97 01/17/21 07:52 01/17/21 07:52 01/17/21 07:52 01/17/21 07:52 01/17/21 07:52
[2021-01-17] MEDS ORDERED: PROPOFOL 10 MG/ML 20 ML VIAL IV ONE (08:27)
[2021-01-17] MEDS ORDERED: LIDOCAINE 1% INJ 10MG/ML (20 ML MDV) ONE (08:27)
--- NOTE | 2021-01-17 08:43 | P.PCN ---
Date of Procedure: 01/17/21 Description of Procedure: PREOPERATIVE DIAGNOSIS: Dysphagia. Gastroesophageal reflux disease POSTOPERATIVE DIAGNOSIS: Dysphagia. Gastroesophageal reflux disease Gastrojejunal stricture without chronic ulcer without perforation Diaphragmatic hiatal hernia OPERATION: Esophagogastrojejunoscopy with balloon dilatation from 18 to 20 mm. SURGEON: Iraida Ashby MD ANESTHESIA: MAC. INDICATIONS: The patient is a 55-year-old female who presents with a history of dysphagia, gastroesophageal reflux disease. Benefits and risks of the procedure were described. Informed consent was obtained. DESCRIPTION: The patient was brought into the endoscopy suite and laid in the left lateral decubitus position. After a timeout was confirmed, the procedure was initiated. An Olympus gastroscope was passed along the posterior oropharynx down to the distal esophagus where the squamocolumnar junction was unremarkable. The gastric pouch was entered. A gastrojejunal stricture of 18 mm was found as the adult gastroscope was 9.5 mm in size. A [employer] balloon dilator was placed through the scope. Final insufflation up to 20 mm was performed with a total of 2 minutes. The scope was advanced up to 60 cm from the incisors into the Kalyn limb. The mucosa of the gastrojejunal anastomosis was intact. No chronic gastrojejunal marginal ulcer was encountered. No full-thickness injury was encountered. The GI tract was desufflated. The patient tolerated the procedure well. FINDINGS: Squamocolumnar junction at 37 cm from the incisors Stricture of approximately 18 mm encountered. No chronic gastrojejunal ulceration encountered. LA grade B erosive esophagitis Successful balloon dilatation to 20 mm. Gastric pouch 5 cm. Hiatal hernia, 2 cm RECOMMENDATIONS: Continue omeprazole May benefit from hiatal hernia repair Plan - Discharge Summary Discharge Rx Participant: No New Discharge Prescriptions: Continue Atorvastatin [Lipitor] 20 mg PO DAILY Omeprazole [PriLOSEC] 40 mg PO DAILY #90 cap FLUoxetine HCL [PROzac] 20 mg PO DAILY Discharge Medication List Omeprazole [PriLOSEC] 40 mg PO DAILY #90 cap 12/08/20 [Rx] Atorvastatin [Lipitor] 20 mg PO DAILY 01/13/21 [History] FLUoxetine HCL [PROzac] 20 mg PO DAILY 01/13/21 [History] [facility] [facility] [place] [facility] [place] [facility] Patient Instructions/Handouts: Hiatal Hernia (DC), Esophageal Dilation (DC) Discharge Disposition: HOME SELF-CARE
[2021-01-17 08:58] VITALS: BP 110/74; PULSE 76; RESP 16
== END 2021-01-17 09:17 | disposition home or self-care (01) ==
LOC: ORWHC2ENDO 07:36
PROVIDERS: ATTEND Surgery Plastic and Reconstructive Surgery
DX: K95.89 Other complications of other bariatric procedure (principal); K44.9 Diaphragmatic hernia without obstruction or gangrene; K21.9 Gastro-esophageal reflux disease without esophagitis; E78.5 Hyperlipidemia, unspecified; F17.200 Nicotine dependence, unspecified, uncomplicated; Z87.01 Personal history of pneumonia (recurrent); Z98.891 History of uterine scar from previous surgery; Z90.49 Acquired absence of other specified parts of digestive tract; Z90.710 Acquired absence of both cervix and uterus; Z90.89 Acquired absence of other organs; Z97.2 Presence of dental prosthetic device (complete) (partial); Z80.42 Family history of malignant neoplasm of prostate; Z82.49 Family history of ischemic heart disease and other diseases of the circulatory system; Z79.899 Other long term (current) drug therapy; Z88.5 Allergy status to narcotic agent; Z88.8 Allergy status to other drugs, medicaments and biological substances; Z91.048 Other nonmedicinal substance allergy status
CPT/HCPCS: 43249; J2001; J2704; C1726

== ENCOUNTER → 2021-04-15 | Outpatient (CLI) | payer BC ==
--- NOTE | 2021-04-18 10:26 | MM ---
Reason for exam: screening (asymptomatic). Last mammogram was performed 1 year and 2 months ago. History: Family history of breast cancer in maternal grandmother at age 70 and breast cancer in maternal cousin. Physical Findings: A clinical breast exam by your physician is recommended on an annual basis and results should be correlated with mammographic findings. MG 3D Screening Mammo W/Cad Bilateral CC and MLO view(s) were taken. Prior study comparison: February 06, 2020, bilateral MG 3d diag mammo w/cad [facility]. February 28, 2018, bilateral MG 3d diag mammo w/cad [facility]. The breast tissue is heterogeneously dense. This may lower the sensitivity of mammography. There is no discrete abnormality. No significant changes when compared with prior studies. ASSESSMENT: Negative, BI-RAD 1 RECOMMENDATION: Routine screening mammogram of both breasts in 1 year.
== END | disposition home or self-care (01) ==
LOC: RADMAMWWP 16:43
PROVIDERS: ATTEND Family Medicine
DX: Z12.31 Encounter for screening mammogram for malignant neoplasm of breast (principal); Z80.3 Family history of malignant neoplasm of breast
CPT/HCPCS: 77063; 77067

== ENCOUNTER 2022-02-25 18:12 | Emergency (ER) | payer OTHER, BC ==
[2022-02-25 18:44] VITALS: RESP 18
[2022-02-25] MEDS ORDERED: DIPH,PERTUS(ACELL)TETVAC-LF 0.5 ML VIAL IM ONE (19:49)
[2022-02-25] MEDS ORDERED: AMOXIC-POT CLAV 875-125MG 1 EACH TAB PO STA (19:49)
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
[2022-02-25 20:39] VITALS: BP 138/79; PULSE 101; TEMP 98.5
== END 2022-02-25 20:43 | disposition home or self-care (01) ==
LOC: EC 18:12
DX: S41.152A Open bite of left upper arm, initial encounter (principal); S09.90XA Unspecified injury of head, initial encounter; M54.2 Cervicalgia; Z23 Encounter for immunization; Z87.891 Personal history of nicotine dependence; Z88.5 Allergy status to narcotic agent; Z88.8 Allergy status to other drugs, medicaments and biological substances; Z88.3 Allergy status to other anti-infective agents; Z79.899 Other long term (current) drug therapy; Y04.1XXA Assault by human bite, initial encounter
CPT/HCPCS: 70450; 72125; 90471; 90715; 99284

== ENCOUNTER 2022-06-21 16:16 | Inpatient (IN) | payer BC, OTHER ==
[2022-06-21] MEDS ORDERED: ONDANSETRON 4 MG/2 ML VIAL IVP STA (16:39)
[2022-06-21] MEDS ORDERED: SODIUM CHLORIDE 0.9% 1,000 ML IV STA (16:39)
[2022-06-21] MEDS ORDERED: FAMOTIDINE 20 MG/2 ML VIAL IV STA (16:40)
[2022-06-21] MEDS ORDERED: methylPREDNISolone SOD SUCCI 125 MG/2 ML VIAL IV STA ×2 (16:40→19:36)
[2022-06-21] MEDS ORDERED: diphenhydrAMINE 50 MG/ML 1 ML VIAL IVP STA (16:40)
[2022-06-21] MEDS ORDERED: HYDROmorphone 0.5 MG/0.5 ML SYRINGE IVP STA ×2 (16:41→19:36)
[2022-06-21 17:35] LABS: Basophils % (A) 0 %; Eosinophils # (A) 0.2 k/uL (0-0.7); Eosinophils % (A) 2 %; HCT 39.2 % (34.0-46.0); Hypochromasia Slight; Lymphocytes # (A) 2.5 k/uL (1.0-4.8); Lymphocytes % (A) 31 %; MCH 28.2 pg (25.0-35.0); MCV 85.4 fL (80.0-100.0); Mean Platelet Volume 8.2; Monocytes # (A) 0.4 k/uL (0-1.0); Monocytes % (A) 5 %; Neutrophils # (A) 4.8 k/uL (1.3-7.7); Neutrophils % (A) 61 %; Platelet Count 331 k/uL (150-450); RBC 4.59 m/uL (3.80-5.40); RDW 13.9 % (11.5-15.5); WBC 7.9 k/uL (3.8-10.6)
[2022-06-21 17:54] LABS: Appearance,Urine Clear (Clear); Bilirubin,Urine Negative (Negative); Blood,Urine Negative (Negative); Color,Urine Yellow; Glucose,Urine (UA) Negative (Negative); Ketones,Urine Trace (Negative); Leukocyte Esterase,Urine Negative (Negative); Nitrite,Urine Negative (Negative); Protein,Urine Negative (Negative); Specific Gravity,Urine 1.028 (1.001-1.035); Urobilinogen,Urine <2.0 mg/dL (<2.0)
[2022-06-21 18:09] LABS: ALT 16 U/L (4-34); AST 30 U/L (14-36); African American GFR (CKD) >90 (>60 ml/min/1.73 sqM); Albumin 4.8 g/dL (3.5-5.0); Alkaline Phosphatase 158 U/L (38-126); Amylase 45 U/L (30-110); Anion Gap 9 mmol/L; Blood Urea Nitrogen 20 mg/dL (7-17); Calcium 9.5 mg/dL (8.4-10.2); Carbon Dioxide 25 mmol/L (22-30); Chloride 106 mmol/L (98-107); Glucose 95 mg/dL (74-99); Lipase 140 U/L (23-300); Non-African American GFR(CKD) >90 (>60 ml/min/1.73 sqM); Potassium 4.7 mmol/L (3.5-5.1); Sodium 140 mmol/L (137-145); Total Bilirubin 0.3 mg/dL (0.2-1.3); Total Protein 7.5 g/dL (6.3-8.2)
--- NOTE | 2022-06-21 18:42 | ED ---
Abdominal Pain HPI - General Chief Complaint: Abdominal Pain Stated Complaint: ABD pain Time Seen by Provider: 06/21/22 16:23 Source: patient Mode of arrival: ambulatory Limitations: no limitations - History of Present Illness Initial Comments: Patient is a 56-year-old female who presents to the emergency department with a chief complaint of abdominal pain. Patient states symptoms started yesterday and have been worsening. Reports a stabbing pain in her upper middle and upper left abdomen which radiates to the back. Reports nausea with one episode of vomiting today, nonbloody. Denies fever, chills, chest pain, shortness of breath, burning with urination, blood in urine, diarrhea. Reports normal bowel movements, nonbloody, last one was today. Does have history of bariatric surgery 6 years ago as well as cholecystectomy. She denies history of bowel obstruction. Reports drinking alcohol socially, denies recent use. Denies use of new medications. Denies history of pancreatitis. - Related Data Home Medications Medication Instructions Recorded Confirmed Atorvastatin [Lipitor] 20 mg PO DAILY 01/13/21 06/21/22 Aspirin EC [Ecotrin Low Dose] 81 mg PO DAILY 06/21/22 06/21/22 FLUoxetine HCL 40 mg PO DAILY 06/21/22 06/21/22 Allergies Allergy/AdvReac Type Severity Reaction Status Date / Time codeine Allergy Severe Anaphylaxis Verified 06/21/22 17:08 iodine Allergy Severe Rash/Hives Verified 06/21/22 17:08 povidone-iodine Allergy Rash/Hives Verified 06/21/22 17:08 [From Betadine] soap [From Betadine] Allergy Rash/Hives Verified 06/21/22 17:08 Review of Systems ROS Statement: Those systems with pertinent positive or pertinent negative responses have been documented in the HPI. ROS Other: All systems not noted in ROS Statement are negative. Past Medical History Past Medical History: GERD/Reflux, Neurologic Disorder, Pneumonia, Syncope Additional Past Medical History / Comment(s): Epilepsy- A CHILD-LAST SEIZURE AT AGE 13, "borderline cholesterol-no tx" History of Any Multi-Drug Resistant Organisms: None Reported Past Surgical History: Bariatric Surgery, Section, Cholecystectomy, Hysterectomy, Tonsillectomy Additional Past Surgical History / Comment(s): Lap band insertion and removal followed by a gastric bypass, abdominoplasty Past Anesthesia/Blood Transfusion Reactions: Motion Sickness, Postoperative Nausea & Vomiting (PONV) Additional Past Anesthesia/Blood Transfusion Reaction / Comment(s): CLAUSTROPHOBIA, motion sickness as child, no PONV in a long time Past Psychological History: Anxiety Smoking Status: Former smoker Past Alcohol Use History: None Reported Past Drug Use History: None Reported - Past Family History Father Family Medical History: Cancer Additional Family Medical History / Comment(s): prostate CANCER Mother Family Medical History: Deep Vein Thrombosis (DVT), Pulmonary Embolus Additional Family Medical History / Comment(s): . General Exam Limitations: no limitations General appearance: alert, in no apparent distress Respiratory exam: Present: normal lung sounds bilaterally. Absent: respiratory distress, wheezes, rales, rhonchi, stridor Cardiovascular Exam: Present: regular rate, normal rhythm, normal heart sounds. Absent: systolic murmur, diastolic murmur, rubs, gallop, clicks GI/Abdominal exam: Present: soft, tenderness (epigastric, LUQ), normal bowel sounds. Absent: distended, guarding, rebound, rigid Neurological exam: Present: alert, oriented X3, CN II-XII intact Psychiatric exam: Present: normal affect, normal mood Skin exam: Present: warm, dry, intact, normal color. Absent: rash Course Vital Signs 06/21/22 16:18 Temperature 97.6 F Pulse Rate 91 Respiratory 20 Rate Blood Pressure 166/89 O2 Sat by Pulse 99 Oximetry Medical Decision Making - Medical Decision Making This is a 56-year-old female presenting with epigastric and left upper quadrant pain. Afebrile. Laboratory studies obtained. There is no leukocytosis. Lipase and amylase are within normal limits. CRP is elevated at 2.5. Other laboratory studies are relatively unremarkable. CT abdomen and pelvis with contrast was obtained and interpreted by me which shows post surgical changes of gastric lumen with small hiatal hernia. No evidence for acute abdominal process. There is also persistent neha mesentery which was seen on prior with a few prominent lymph nodes Pain and nausea not controlled with Dilaudid and Zofran. Results discussed with patient. At this time there are no diagnostic studies to explain patient's symptoms. Patient still in a lot of pain and looks uncomfortable. We discussed admission for observation with GI consult. Patient is agreeable. Case discussed with Dr. Pino who accepted admission. Dr. Snell is my attending. - Lab Data Result diagrams: 06/21/22 17:31 06/21/22 17:31 Lab Results 06/21/22 06/21/22 06/21/22 Range/Units 17:31 17:31 17:31 WBC 7.9 (3.8-10.6) k/uL RBC 4.59 (3.80-5.40) m/uL Hgb 13.0 (11.4-16.0) gm/dL Hct 39.2 (34.0-46.0) % MCV 85.4 (80.0-100.0) fL MCH 28.2 (25.0-35.0) pg MCHC 33.0 (31.0-37.0) g/dL RDW 13.9 (11.5-15.5) % Plt Count 331 (150-450) k/uL MPV 8.2 Neutrophils % 61 % Lymphocytes % 31 % Monocytes % 5 % Eosinophils % 2 % Basophils % 0 % Neutrophils # 4.8 (1.3-7.7) k/uL Lymphocytes # 2.5 (1.0-4.8) k/uL Monocytes # 0.4 (0-1.0) k/uL Eosinophils # 0.2 (0-0.7) k/uL Basophils # 0.0 (0-0.2) k/uL Hypochromasia Slight ESR (0-20) mm/hr Sodium 140 (137-145) mmol/L Potassium 4.7 (3.5-5.1) mmol/L Chloride 106 (98-107) mmol/L Carbon Dioxide 25 (22-30) mmol/L Anion Gap 9 mmol/L BUN 20 H (7-17) mg/dL Creatinine 0.75 (0.52-1.04) mg/dL Est GFR (CKD-EPI)AfAm >90 (>60 ml/min/1.73 sqM) Est GFR (CKD-EPI)NonAf >90 (>60 ml/min/1.73 sqM) Glucose 95 (74-99) mg/dL Plasma Lactic Acid Jamil 1.1 (0.7-2.0) mmol/L Calcium 9.5 (8.4-10.2) mg/dL Total Bilirubin 0.3 (0.2-1.3) mg/dL AST 30 (14-36) U/L ALT 16 (4-34) U/L Alkaline Phosphatase 158 H (38-126) U/L C-Reactive Protein (<1.0) mg/dL Total Protein 7.5 (6.3-8.2) g/dL Albumin 4.8 (3.5-5.0) g/dL Amylase 45 (30-110) U/L Lipase 140 (23-300) U/L Urine Color Urine Appearance (Clear) Urine pH (5.0-8.0) Ur Specific Merrick (1.001-1.035) Urine Protein (Negative) Urine Glucose (UA) (Negative) Urine Ketones (Negative) Urine Blood (Negative) Urine Nitrite (Negative) Urine Bilirubin (Negative) Urine Urobilinogen (<2.0) mg/dL Ur Leukocyte Esterase (Negative) 06/21/22 06/21/22 06/21/22 Range/Units 17:31 17:31 17:35 WBC (3.8-10.6) k/uL RBC (3.80-5.40) m/uL Hgb (11.4-16.0) gm/dL Hct (34.0-46.0) % MCV (80.0-100.0) fL MCH (25.0-35.0) pg MCHC (31.0-37.0) g/dL RDW (11.5-15.5) % Plt Count (150-450) k/uL MPV Neutrophils % % Lymphocytes % % Monocytes % % Eosinophils % % Basophils % % Neutrophils # (1.3-7.7) k/uL Lymphocytes # (1.0-4.8) k/uL Monocytes # (0-1.0) k/uL Eosinophils # (0-0.7) k/uL Basophils # (0-0.2) k/uL Hypochromasia ESR 21 H (0-20) mm/hr Sodium (137-145) mmol/L Potassium (3.5-5.1) mmol/L Chloride (98-107) mmol/L Carbon Dioxide (22-30) mmol/L Anion Gap mmol/L BUN (7-17) mg/dL Creatinine (0.52-1.04) mg/dL Est GFR (CKD-EPI)AfAm (>60 ml/min/1.73 sqM) Est GFR (CKD-EPI)NonAf (>60 ml/min/1.73 sqM) Glucose (74-99) mg/dL Plasma Lactic Acid Jamil (0.7-2.0) mmol/L Calcium (8.4-10.2) mg/dL Total Bilirubin (0.2-1.3) mg/dL AST (14-36) U/L ALT (4-34) U/L Alkaline Phosphatase (38-126) U/L C-Reactive Protein 2.5 H (<1.0) mg/dL Total Protein (6.3-8.2) g/dL Albumin (3.5-5.0) g/dL Amylase (30-110) U/L Lipase (23-300) U/L Urine Color Yellow Urine Appearance Clear (Clear) Urine pH 5.0 (5.0-8.0) Ur Specific Merrick 1.028 (1.001-1.035) Urine Protein Negative (Negative) Urine Glucose (UA) Negative (Negative) Urine Ketones Trace H (Negative) Urine Blood Negative (Negative) Urine Nitrite Negative (Negative) Urine Bilirubin Negative (Negative) Urine Urobilinogen <2.0 (<2.0) mg/dL Ur Leukocyte Esterase Negative (Negative) Disposition Clinical Impression: LUQ pain, Epigastric abdominal pain, Nausea & vomiting Disposition: ADMITTED IP TO THIS [facility] Condition: Good Referrals: Hong Live III, MD [Primary Care Provider] - 1-2 days Decision Time: 19:42
--- NOTE | 2022-06-21 18:55 | CT ---
EXAMINATION TYPE: CT abdomen pelvis w con CT DLP: 1940.7 mGycm, Automated exposure control for dose reduction was used. DATE OF EXAM: 06/21/2022 6:30 PM COMPARISON: CT abdomen pelvis most recent from 05/25/2019 CLINICAL INDICATION:Female, 56 years old with history of LUQ/epigastric pain; LUQ pain, epigastric pa in TECHNIQUE: Axial CT of the abdomen and pelvis. Sagittal and coronal reformats were created on a [employer] workstation. Contrast used:100 mL of Isovue 300 with IV Contrast, Oral contrast used: without Oral Contrast FINDINGS: LOWER CHEST: Unremarkable ABDOMEN LIVER: Unremarkable GALLBLADDER AND BILE DUCTS: Cholecystectomy.. PANCREAS: Unremarkable. SPLEEN: Unremarkable. ADRENAL GLANDS: Unremarkable. KIDNEYS AND URETERS: No evidence of hydronephrosis or renal calculus. The ureters are unremarkable. PELVIS BLADDER: Unremarkable REPRODUCTIVE: Unremarkable. ABDOMEN & PELVIS STOMACH AND BOWEL: Postsurgical changes to gastric lumen. No evidence of bowel obstruction. Small hia jacqueline hernia is present. Appendix normal. PERITONEUM: No evidence of pneumoperitoneum or free fluid. Mild neha mesentery noted unchanged from prior. VASCULATURE: No evidence of aortic aneurysm. MUSCULOSKELETAL: No acute osseous abnormalities LYMPH NODES: No gross evidence for lymphadenopathy. SOFT TISSUE/ABDOMINAL WALL: Unremarkable IMPRESSION: 1. Post surgical changes of gastric lumen with small hiatal hernia. No evidence for acute abdominal process. No significant change from prior. 2. There is persistent Neha mesentery as seen on prior with a few prominent lymph nodes.
[2022-06-21] MEDS ORDERED: PROCHLORPERAZINE INJ 10 MG/2 ML VIAL IVP STA (19:36)
[2022-06-21] MEDS: HYDROmorphone 0.5 MG/0.5 ML SYRINGE IVP PRN (20:03)
[2022-06-22] MEDS: SODIUM CHLORIDE 0.9% 1,000 ML IV SCH ×2 (01:56→10:57)
[2022-06-22] MEDS: HYDROmorphone 0.5 MG/0.5 ML SYRINGE IVP PRN ×3 (02:11→18:14)
--- NOTE | 2022-06-22 02:23 | P.HPIM ---
History of Present Illness H&P Date: 06/21/22 Chief Complaint: abd pain 56 year old female with history of gastric bypass, hyperlipidemia , and anxiety patient comes in complaining of epigastric abd pain that has started today suddenly , denies any illicit drugs of heavy alcohol, she denies taking any NSAIDs., she reports starting low carb diet about a week ago, denies taking any weight loss meds or new over the counter health supplements. she noticed some dark stool today, and one episode of vomiting yesterday non bloody non bilious , she reports that it consisted of her lunch. she denies any diarrhea or changes in her urinary habits. blood work was unremarkable overall, CRP and ESR were found to be elevated CT abd no acute process, but showed neha mesentery and prominent LN Review of Systems Pertinent positives as noted in HPI. All other systems were reviewed and are negative Past Medical History Past Medical History: GERD/Reflux, Neurologic Disorder, Pneumonia, Syncope Additional Past Medical History / Comment(s): Epilepsy- A CHILD-LAST SEIZURE AT AGE 13, "borderline cholesterol-no tx" History of Any Multi-Drug Resistant Organisms: None Reported Past Surgical History: Bariatric Surgery, Section, Cholecystectomy, Hysterectomy, Tonsillectomy Additional Past Surgical History / Comment(s): Lap band insertion and removal followed by a gastric bypass, abdominoplasty Past Anesthesia/Blood Transfusion Reactions: Motion Sickness, Postoperative Nausea & Vomiting (PONV) Additional Past Anesthesia/Blood Transfusion Reaction / Comment(s): CLAUSTROPHOBIA, motion sickness as child, no PONV in a long time Past Psychological History: Anxiety Additional Psychological History / Comment(s): . Smoking Status: Former smoker Past Alcohol Use History: None Reported Additional Past Alcohol Use History / Comment(s): smokes 5 cigs a day, smoked for 1 yr Past Drug Use History: None Reported - Past Family History Father Family Medical History: Cancer Additional Family Medical History / Comment(s): prostate CANCER Mother Family Medical History: Deep Vein Thrombosis (DVT), Pulmonary Embolus Additional Family Medical History / Comment(s): . Medications and Allergies Home Medications Medication Instructions Recorded Confirmed Type Atorvastatin [Lipitor] 20 mg PO DAILY 01/13/21 06/21/22 History Aspirin EC [Ecotrin Low Dose] 81 mg PO DAILY 06/21/22 06/21/22 History FLUoxetine HCL 40 mg PO DAILY 06/21/22 06/21/22 History Allergies Allergy/AdvReac Type Severity Reaction Status Date / Time codeine Allergy Severe Anaphylaxis Verified 06/21/22 17:08 iodine Allergy Severe Rash/Hives Verified 06/21/22 17:08 povidone-iodine Allergy Rash/Hives Verified 06/21/22 17:08 [From Betadine] soap [From Betadine] Allergy Rash/Hives Verified 06/21/22 17:08 Physical Exam Vitals: Vital Signs Temp Pulse Pulse Resp BP BP Pulse Ox 06/22/22 02:08 97.4 F L 61 18 116/66 98 06/22/22 01:21 81 15 155/74 100 06/21/22 16:18 97.6 F 91 20 166/89 99 Intake and Output 06/21/22 06/21/22 06/22/22 14:59 22:59 06:59 Other: Weight 114.305 kg 114.305 kg Constitutional: No acute distress, conversant, pleasant Eyes: Anicteric sclerae, moist conjunctiva, Pupils equal round reactive to light ENMT: NC/AT Oropharynx clear, no erythema, or exudates Neck: Supple, no masses, or JVD No carotid bruits No thyromegaly Lungs: Clear to auscultation Clear to percussion Normal respiratory effort, no accessory muscle use Cardiovascular: Heart regular in rate and rhythm, No murmurs, gallops, or rubs No peripheral edema Abdominal: Soft discomfort to deep palpation over the upper half of the abd , no guarding, rebound or rigidity Abdomen moving with respiration Normoactive bowel sounds No hepatomegaly, No splenomegaly No palpable mass No abdominal wall hernia noted Skin: Normal temperature, tone, texture, turgor No induration No subcutaneous nodules No rash, lesions No ulcers Extremities: No digital cyanosis No clubbing Pedal pulses intact and symmetrical Radial pulses intact and symmetrical No calf tenderness Psychiatric: Alert and oriented to person, place and time Appropriate affect fair judgement Neuro Muscles Strength 5/5 in all 4 extremities Sensation to light touch grossly present throughout Cranial nerves II-XII grossly intact No focal sensory deficits Lymphatics: no palpable cervical or supraclavicular , l lymph nodes Results CBC & Chem 7: 06/21/22 17:31 06/21/22 17:31 Labs: Abnormal Lab Results - Last 24 Hours (Table) 06/21/22 06/21/22 06/21/22 Range/Units 17:31 17:31 17:31 ESR 21 H (0-20) mm/hr BUN 20 H (7-17) mg/dL Alkaline Phosphatase 158 H (38-126) U/L C-Reactive Protein 2.5 H (<1.0) mg/dL Urine Ketones (Negative) 06/21/22 Range/Units 17:35 ESR (0-20) mm/hr BUN (7-17) mg/dL Alkaline Phosphatase (38-126) U/L C-Reactive Protein (<1.0) mg/dL Urine Ketones Trace H (Negative) Assessment and Plan Assessment: abd pain with elevated inflammatory markers CT abd no acute pathology , showed neha mesentery and prominent LN GI consult bowel rest clear liquids IVF hydration pain control with morphine zofran PRN PPI daily chronic conditions hyperlipidemia anxiety resume home meds DVT PPX heparin sc tid full code
[2022-06-22] MEDS: HEPARIN SODIUM,PORCINE/PF 5,000 UNIT/0.5 ML SYRINGE SQ SCH ×2 (08:29→15:40)
[2022-06-22] MEDS: ASPIRIN 81 MG PO SCH (08:29)
[2022-06-22] MEDS: ATORVASTATIN 20 MG TAB PO SCH (08:29)
[2022-06-22] MEDS: FLUoxetine HCL 20 MG CAP PO SCH (08:29)
--- NOTE | 2022-06-22 11:47 | P.PN ---
Subjective Progress Note Date: 06/22/22 Principal diagnosis: Abdominal pain 56 year old female with history of gastric bypass, hyperlipidemia , and anxiety patient comes in complaining of epigastric abd pain that has started today suddenly , denies any illicit drugs of heavy alcohol, she denies taking any NSAIDs., she reports starting low carb diet about a week ago, denies taking any weight loss meds or new over the counter health supplements. she noticed some dark stool today, and one episode of vomiting yesterday non bloody non bilious , she reports that it consisted of her lunch. she denies any diarrhea or changes in her urinary habits. blood work was unremarkable overall, CRP and ESR were mildly elevated CT abd no acute process, but showed neha mesentery and prominent LN Today patient states that her abdominal pain is slightly better. She states that she is not having any nausea vomiting since admission. 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 Psych - Calm and cooperative - Labs CBC & Chem 7: 06/21/22 17:31 06/21/22 17:31 Labs: Abnormal Lab Results - Last 24 Hours (Table) 06/21/22 06/21/22 06/21/22 Range/Units 17:31 17:31 17:31 ESR 21 H (0-20) mm/hr BUN 20 H (7-17) mg/dL Alkaline Phosphatase 158 H (38-126) U/L C-Reactive Protein 2.5 H (<1.0) mg/dL Urine Ketones (Negative) 06/21/22 Range/Units 17:35 ESR (0-20) mm/hr BUN (7-17) mg/dL Alkaline Phosphatase (38-126) U/L C-Reactive Protein (<1.0) mg/dL Urine Ketones Trace H (Negative) Assessment and Plan Assessment: Epigastric and right upper quadrant abdominal pain CT abdomen and pelvis with no acute pathology but does show a persistent neha mesentery GI consult and surgery consult Patient states that her pain is slightly better today and she denies any nausea vomiting. Resume Zofran when necessary Pain control with morphine IV fluids Clinical liquid diet Chronic conditions Hyperlipidemia, anxiety Resume home meds DVT prophylaxis: Subcu heparin
--- NOTE | 2022-06-22 11:54 | P.PN ---
Progress Note - Text Progress Note Date: 06/22/22 Patient seen and evaluated. CT of the abdomen pelvis reviewed. Clinical symptoms and findings consistent with intra-abdominal adhesions. Recommend diagnostic laparoscopy, lysis of adhesions, intraoperative EGD as patient also reports intermittent dysphagia.
--- NOTE | 2022-06-22 14:33 | P.GSCN ---
History of Present Illness Consult date: 06/22/22 History of present illness: CHIEF COMPLAINT: Abdominal pain HISTORY OF PRESENT ILLNESS: This is a 56-year-old female who presented to the hospital with complaints of epigastric abdominal pain for the last 2 days. She reports that the pain radiates across the upper abdomen. I she also has been having nausea. She complains of increasing pain after eating. She did have one episode of vomiting yesterday. She has been having issues with heartburn as well. She has a known history of hiatal hernia as well as a history of gastrojejunal ulcers. Patient does report having diarrhea and that her stools have been very dark. She denies any fever chills or sweats. Past surgical history includes Kalyn-en-Y, LAP-BAND with removal, lysis of adhesions, cholecystectomy and EGDs with multiple dilations. 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 PAST MEDICAL HISTORY: See list. PAST SURGICAL HISTORY: See list. MEDICATIONS: See list. ALLERGIES: See list. SOCIAL HISTORY: No illicit drug use. REVIEW OF SYSTEMS: CONSTITUTIONAL: Denies fever or chills. HEENT: Denies blurred vision, vision changes, or eye pain. Denies hemoptysis ENDOCRINE: Denies heat or cold intolerance. CARDIOVASCULAR: Denies chest pain or pressure. RESPIRATORY: No shortness of breath. GASTROINTESTINAL: Denies abdominal pain. Denies nausea or vomiting. NEURO: Denies history of seizures. PSYCH: No depression or suicidal ideation HEMATOLOGIC: Denies bleeding disorders. LYMPHATIC: The patient denies any lumps and bumps around the neck. GENITOURINARY: Denies any blood in urine or increased urinary frequency. MUSCULOSKELETAL: Denies myalgias. Denies joint swelling. Denies decreased range of motion beyond patients baseline. SKIN: Denies pruitis. Denies rash. PHYSICAL EXAM: VITAL SIGNS: Reviewed GENERAL: Well-developed in no acute distress. HEENT: No sclera icterus. Extraocular movements grossly intact. Moist buccal m ucosa. Head is atraumatic, normocephalic. Hears conversational speech. No nasal drainage. NECK: Supple without lymphadenopathy. CHEST: Non-labored respirations and equal bilateral excursions. CARDIOVASCULAR: Palpable 2+ radial pulses. ABDOMEN: Soft. Nondistended. Epigastric tenderness MUSCULOSKELETAL: No clubbing or cyanosis. NEUROLOGIC: No focal or lateralizing signs. Cranial nerves II through XII grossly intact. PSYCH: Appropriate affect. Alert and oriented to person, place and time. SKIN: Well perfused. Good skin turgor. LABORATORY DATA: WBC is 7.9 Hgb is 13 platelets are 331 Sodium is 140 potassium is 4.7 creatinine 0.75 Lactic acid is 1.1 Total bili 0.3 AST 30 ALT 16 alk phos 158 CRP 2.5 ESR 21 Lipase 140 Urinalysis negative for infection IMAGING: Computed tomography scan abdomen and pelvis postsurgical changes of gastric lumen was small hiatal hernia. No evidence for acute abdominal process. No significant change from prior. There is persistent Jojo mesentery as seen on prior with a few prominent lymph nodes ASSESSMENT: 1. Epigastric abdominal pain possibly due to intra-abdominal adhesions 2. History of multiple abdominal surgeries 3. History of gastrojejunal strictures with multiple dilations 4. History of gastrojejunal ulcer PLAN: -Patient scheduled for Robotic lysis of adhesions and intraoperative EGD with Dr. Ashby -Clear liquid diet today -Nothing by mouth after midnight -Continue supportive care Thank you for this consultation Physician Power Plant Superintendent note has been reviewed by physician. Signing provider agrees with the documented findings, assessment, and plan of care. Past Medical History Past Medical History: GERD/Reflux, Neurologic Disorder, Pneumonia, Syncope Additional Past Medical History / Comment(s): Epilepsy- A CHILD-LAST SEIZURE AT AGE 13, "borderline cholesterol-no tx" History of Any Multi-Drug Resistant Organisms: None Reported Past Surgical History: Bariatric Surgery, Section, Cholecystectomy, Hysterectomy, Tonsillectomy Additional Past Surgical History / Comment(s): Lap band insertion and removal followed by a gastric bypass, abdominoplasty Past Anesthesia/Blood Transfusion Reactions: Motion Sickness, Postoperative Nausea & Vomiting (PONV) Additional Past Anesthesia/Blood Transfusion Reaction / Comm: CLAUSTROPHOBIA, motion sickness as child, no PONV in a long time Past Psychological History: Anxiety Additional Psychological History / Comment(s): . Smoking Status: Former smoker Past Alcohol Use History: None Reported Additional Past Alcohol Use History / Comment(s): smokes 5 cigs a day, smoked for 1 yr Past Drug Use History: None Reported - Past Family History Father Family Medical History: Cancer Additional Family Medical History / Comment(s): prostate CANCER Mother Family Medical History: Deep Vein Thrombosis (DVT), Pulmonary Embolus Additional Family Medical History / Comment(s): . Medications and Allergies Home Medications Medication Instructions Recorded Confirmed Type Atorvastatin [Lipitor] 20 mg PO DAILY 01/13/21 06/21/22 History Aspirin EC [Ecotrin Low Dose] 81 mg PO DAILY 06/21/22 06/21/22 History FLUoxetine HCL 40 mg PO DAILY 06/21/22 06/21/22 History Allergies Allergy/AdvReac Type Severity Reaction Status Date / Time codeine Allergy Severe Anaphylaxis Verified 06/21/22 17:08 iodine Allergy Severe Rash/Hives Verified 06/21/22 17:08 povidone-iodine Allergy Rash/Hives Verified 06/21/22 17:08 [From Betadine] soap [From Betadine] Allergy Rash/Hives Verified 06/21/22 17:08 Surgical - Exam Vital Signs Temp Pulse Resp BP Pulse Ox 97.6 F 91 20 166/89 99 06/21/22 16:18 06/21/22 16:18 06/21/22 16:18 06/21/22 16:18 06/21/22 16:18 Results - Labs 06/21/22 17:31 06/21/22 17:31 Abnormal Lab Results - Last 24 Hours (Table) 06/21/22 06/21/22 06/21/22 Range/Units 17:31 17:31 17:31 ESR 21 H (0-20) mm/hr BUN 20 H (7-17) mg/dL Alkaline Phosphatase 158 H (38-126) U/L C-Reactive Protein 2.5 H (<1.0) mg/dL Urine Ketones (Negative) 06/21/22 Range/Units 17:35 ESR (0-20) mm/hr BUN (7-17) mg/dL Alkaline Phosphatase (38-126) U/L C-Reactive Protein (<1.0) mg/dL Urine Ketones Trace H (Negative) Diabetes panel 06/21/22 Range/Units 17:31 Sodium 140 (137-145) mmol/L Potassium 4.7 (3.5-5.1) mmol/L Chloride 106 (98-107) mmol/L Carbon Dioxide 25 (22-30) mmol/L BUN 20 H (7-17) mg/dL Creatinine 0.75 (0.52-1.04) mg/dL Glucose 95 (74-99) mg/dL Calcium 9.5 (8.4-10.2) mg/dL AST 30 (14-36) U/L ALT 16 (4-34) U/L Alkaline Phosphatase 158 H (38-126) U/L Total Protein 7.5 (6.3-8.2) g/dL Albumin 4.8 (3.5-5.0) g/dL Calcium panel 06/21/22 Range/Units 17:31 Calcium 9.5 (8.4-10.2) mg/dL Albumin 4.8 (3.5-5.0) g/dL Pituitary panel 06/21/22 Range/Units 17:31 Sodium 140 (137-145) mmol/L Potassium 4.7 (3.5-5.1) mmol/L Chloride 106 (98-107) mmol/L Carbon Dioxide 25 (22-30) mmol/L BUN 20 H (7-17) mg/dL Creatinine 0.75 (0.52-1.04) mg/dL Glucose 95 (74-99) mg/dL Calcium 9.5 (8.4-10.2) mg/dL Adrenal panel 06/21/22 Range/Units 17:31 Sodium 140 (137-145) mmol/L Potassium 4.7 (3.5-5.1) mmol/L Chloride 106 (98-107) mmol/L Carbon Dioxide 25 (22-30) mmol/L BUN 20 H (7-17) mg/dL Creatinine 0.75 (0.52-1.04) mg/dL Glucose 95 (74-99) mg/dL Calcium 9.5 (8.4-10.2) mg/dL Total Bilirubin 0.3 (0.2-1.3) mg/dL AST 30 (14-36) U/L ALT 16 (4-34) U/L Alkaline Phosphatase 158 H (38-126) U/L Total Protein 7.5 (6.3-8.2) g/dL Albumin 4.8 (3.5-5.0) g/dL
--- NOTE | 2022-06-22 16:38 | P.CONS ---
History of Present Illness - Reason for Consult Consult date: 06/22/22 Left upper quadrant/epigastric pain Requesting physician: Lynn Taylor - Chief Complaint Abdominal pain - History of Present Illness This is a 56-year-old female who presented to the hospital with complaints of epigastric abdominal pain for the last 2 days. She reports that the pain radiates across the upper abdomen. She also has been having nausea. Pain has significantly worse 1-2 days ago. She thought it was related to her KETO diet that she had recently started.. She complains of increasing pain after eating. She did have one episode of vomiting yesterday. She has been having issues with heartburn as well. She has a known history of hiatal hernia as well as a history of gastrojejunal ulcers. Patient does report having diarrhea and that her stools have been very dark. She denies any fever chills or sweats. Past surgical history includes Kalyn-en-Y, LAP-BAND with removal, lysis of adhesions, cholecystectomy and EGDs with multiple dilations. 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 Labs WBC 7.9 hemoglobin 13 hematocrit 39 platelet count 331,000 sed rate 21 sodium 140 potassium 4.7 BUN 20 creatinine 0.7 glucose 95 total bilirubin 0.3 AST 30 ALT 16 alkaline phosphatase 150 8C reactive protein 2.5 amylase 45 lipase [address] of the abdomen and pelvis with contrast that reported postsurgical changes of gastric lumen with small hiatal hernia. No evidence for acute abdominal process. No significant change from prior. There is persistent neha mesentery as seen on prior with a few prominent lymph nodes. Review of Systems REVIEW OF SYSTEMS: CARDIOPULMONARY: No chest pain or shortness of breath. Gastrointestinal: Epigastric and complaints actually abdominal pain across upper abdomen, states started in the left upper quadrant and radiated across to the right. Nausea and vomiting. No hematemesis, coffee-ground emesis. No rectal bleeding, or melena. GENITOURINARY: No dysuria or hematuria. MUSCULOSKELETAL: Reports normal range of motion. SKIN: No rashes. No jaundice. ENDOCRINE: No chills, fevers. No excessive weight gain or loss. No polydipsia or polyuria. PSYCHIATRIC: Unremarkable. NEUROLOGY: No change in mental status. Denies dizziness, headache. ENT: Vision unremarkable. CONSTITUTIONAL: No recent weight loss. No fever, chills, night sweats. Past Medical History Past Medical History: GERD/Reflux, Neurologic Disorder, Pneumonia, Syncope Additional Past Medical History / Comment(s): Epilepsy- A CHILD-LAST SEIZURE AT AGE 13, "borderline cholesterol-no tx" History of Any Multi-Drug Resistant Organisms: None Reported Past Surgical History: Bariatric Surgery, Section, Cholecystectomy, Hysterectomy, Tonsillectomy Additional Past Surgical History / Comment(s): Lap band insertion and removal followed by a gastric bypass, abdominoplasty Past Anesthesia/Blood Transfusion Reactions: Motion Sickness, Postoperative Nausea & Vomiting (PONV) Additional Past Anesthesia/Blood Transfusion Reaction / Comm: CLAUSTROPHOBIA, motion sickness as child, no PONV in a long time Past Psychological History: Anxiety Additional Psychological History / Comment(s): . Smoking Status: Former smoker Past Alcohol Use History: None Reported Additional Past Alcohol Use History / Comment(s): smokes 5 cigs a day, smoked for 1 yr Past Drug Use History: None Reported - Past Family History Father Family Medical History: Cancer Additional Family Medical History / Comment(s): prostate CANCER Mother Family Medical History: Deep Vein Thrombosis (DVT), Pulmonary Embolus Additional Family Medical History / Comment(s): . Medications and Allergies Home Medications Medication Instructions Recorded Confirmed Type Atorvastatin [Lipitor] 20 mg PO DAILY 01/13/21 06/21/22 History Aspirin EC [Ecotrin Low Dose] 81 mg PO DAILY 06/21/22 06/21/22 History FLUoxetine HCL 40 mg PO DAILY 06/21/22 06/21/22 History Allergies Allergy/AdvReac Type Severity Reaction Status Date / Time codeine Allergy Severe Anaphylaxis Verified 06/21/22 17:08 iodine Allergy Severe Rash/Hives Verified 06/21/22 17:08 povidone-iodine Allergy Rash/Hives Verified 06/21/22 17:08 [From Betadine] soap [From Betadine] Allergy Rash/Hives Verified 06/21/22 17:08 Physical Exam Vitals: Vital Signs Temp Pulse Pulse Resp BP BP Pulse Ox 06/22/22 02:08 97.4 F L 61 18 116/66 98 06/22/22 01:21 81 15 155/74 100 06/21/22 16:18 97.6 F 91 20 166/89 99 Intake and Output 06/21/22 06/22/22 06/22/22 22:59 06:59 14:59 Other: Voiding Method Toilet # Voids 2 Weight 114.305 kg 114.305 kg General appearance: The patient is alert, oriented, appears in no acute distre ss. HET: Head is normocephalic and atraumatic. Conjunctiva pink. Sclera anicteric. Neck: Supple without lymphadenopathy. Trachea midline. Heart: S1 S2. Regular rate and rhythm. Lungs: Clear to auscultation. Abdomen: Soft, the epigastric, as well as the left upper quadrant and right upper quadrant tenderness, nondistended with bowel sounds. No guarding or rigidity. Skin: No rashes. No jaundice. Extremities: Normal skin color and turgor. No pedal edema. Neurological: No focal deficits. Alert and oriented x3. Results CBC & Chem 7: 06/21/22 17:31 06/21/22 17:31 Labs: Abnormal Lab Results - Last 24 Hours (Table) 06/21/22 06/21/22 06/21/22 Range/Units 17:31 17:31 17:31 ESR 21 H (0-20) mm/hr BUN 20 H (7-17) mg/dL Alkaline Phosphatase 158 H (38-126) U/L C-Reactive Protein 2.5 H (<1.0) mg/dL Urine Ketones (Negative) 06/21/22 Range/Units 17:35 ESR (0-20) mm/hr BUN (7-17) mg/dL Alkaline Phosphatase (38-126) U/L C-Reactive Protein (<1.0) mg/dL Urine Ketones Trace H (Negative) CT scan - abdomen: report reviewed (CT of the abdomen and pelvis with contrast that reported postsurgical changes of gastric lumen with small hiatal hernia. No evidence for acute abdominal process. No significant change from prior. There is persistent neha mesentery as seen on prior with a few prominent lymph nodes.) Assessment and Plan (1) Abdominal pain Narrative/Plan: 56-year-old female with significant history of abdominal surgeries including Kalyn-en-Y, LAP-BAND surgery cholecystectomy lysis of adhesions and previous EGDs all done by Dr. Gloria. Patient presented with diffuse upper abdominal pain with associated nausea and vomiting. Unclear etiology at this time. Recommending consultation to general surgery Dr. Ashby who has seen patient and recommending proceeding with lysis of adhesions and intraoperative EGD. Gastroenterology will be on standby. Current Visit: No Status: Acute Code(s): R10.9 - UNSPECIFIED ABDOMINAL PAIN SNOMED Code(s): 57323257 (2) Nausea & vomiting Current Visit: Yes Status: Acute Code(s): R11.2 - NAUSEA WITH VOMITING, UNSPECIFIED SNOMED Code(s): 88205477 Plan: 1. Continue symptomatic and supportive care 2. Protonix 40 mg daily 3. Antiemetics as needed 4. Will consult general surgery in [address] Gloria as patient is well-known to her Thank you for this consultation, we will sign off at this time. Dr. Debra Tobar I agree with the dictator's note, documented as a scribe by Taya Celeste.
[2022-06-22] MEDS: ONDANSETRON 4 MG/2 ML VIAL IVP PRN (18:14)
[2022-06-23] MEDS: HEPARIN SODIUM,PORCINE/PF 5,000 UNIT/0.5 ML SYRINGE SQ SCH ×3 (00:29→15:18)
[2022-06-23] MEDS: HYDROmorphone 0.5 MG/0.5 ML SYRINGE IVP PRN ×4 (02:12→18:17)
[2022-06-23] MEDS: ONDANSETRON 4 MG/2 ML VIAL IVP PRN ×2 (02:12→13:42)
[2022-06-23] MEDS: FLUoxetine HCL 20 MG CAP PO SCH (08:30)
[2022-06-23] MEDS: ASPIRIN 81 MG PO SCH (08:30)
[2022-06-23] MEDS: ATORVASTATIN 20 MG TAB PO SCH (08:30)
--- NOTE | 2022-06-23 12:14 | P.PN ---
Subjective Progress Note Date: 06/23/22 Principal diagnosis: Abdominal pain Patient says that she still having abdominal pain and the pain medication is helping. She says that she is scheduled for a laparotomy today around 5 PM. Objective - Vital Signs Vital signs: Vital Signs Temp 97.8 F 06/23/22 07:00 Pulse 60 06/23/22 07:00 Resp 18 06/23/22 07:00 BP 115/72 06/23/22 07:00 Pulse Ox 99 06/23/22 07:00 FiO2 Intake & Output 06/22/22 06/23/22 06/23/22 18:59 06:59 18:59 Intake Total 460 Balance 460 Intake: Oral 460 Other: # Voids 1 2 - Exam General examination - Alert and Oriented 3 in NAD Heart - + S1S2 no murmurs Lungs - Clear to auscultation Abdomen soft tenderness to palpate in the epigastric and left upper quadrant ar ea ND +ve BS Extremities - No edema CRA - Moving all 4 extremities spontaneously Psych - Calm and cooperative - Labs CBC & Chem 7: 06/21/22 17:31 06/21/22 17:31 Assessment and Plan Assessment: Epigastric and left upper quadrant abdominal pain Computed tomography scan reviewed by general surgery who believes that her pain is likely due to lysis of overt lesions Patient scheduled for a laparotomy later today Resume Zofran when necessary Pain control with morphine IV fluids NPO Patient's nausea has improved however she still has persistent abdominal pain Chronic conditions Hyperlipidemia, anxiety Resume home meds DVT prophylaxis: Subcu heparin
--- NOTE | 2022-06-23 16:46 | P.PN ---
Subjective Progress Note Date: 06/23/22 Due to long delays in the operating room and uncertainty for surgery today, surgery scheduled as outpatient. Recommend trial of diet. Time off from work at least 2 weeks with adjustment pending scheduling of surgery for diagnostic laparoscopy lysis of adhesions. Patient stable for discharge once tolerating diet Objective - Vital Signs Vital signs: Vital Signs Temp 97.9 F 06/23/22 13:21 Pulse 71 06/23/22 13:21 Resp 16 06/23/22 13:21 BP 134/72 06/23/22 13:21 Pulse Ox 100 06/23/22 13:21 FiO2 Intake & Output 06/22/22 06/23/22 06/23/22 18:59 06:59 18:59 Intake Total 460 Balance 460 Intake: Oral 460 Other: # Voids 1 2 2 - Labs CBC & Chem 7: 06/21/22 17:31 06/21/22 17:31
[2022-06-24] MEDS: HEPARIN SODIUM,PORCINE/PF 5,000 UNIT/0.5 ML SYRINGE SQ SCH ×3 (00:18→15:49)
[2022-06-24] MEDS: ONDANSETRON 4 MG/2 ML VIAL IVP PRN ×3 (01:00→19:34)
[2022-06-24] MEDS: HYDROmorphone 0.5 MG/0.5 ML SYRINGE IVP PRN ×3 (01:44→18:02)
[2022-06-24] MEDS: ASPIRIN 81 MG PO SCH (09:29)
[2022-06-24] MEDS: ATORVASTATIN 20 MG TAB PO SCH (09:29)
[2022-06-24] MEDS: FLUoxetine HCL 20 MG CAP PO SCH (09:32)
[2022-06-24 09:48] LABS: Basophils # (A) 0.03 X 10*3/uL (0.00-0.10); Basophils % (A) 0.5 %; Eosinophils # (A) 0.09 X 10*3/uL (0.04-0.35); Eosinophils % (A) 1.4 %; HCT 35.6 % (37.2-46.3); HGB 11.3 g/dL (12.0-15.0); Immature Grans, Automated 0.3 %; Lymphocytes # (A) 1.96 X 10*3/uL (0.90-5.00); Lymphocytes % (A) 29.7 %; MCH 27.4 pg (27.0-32.0); MCHC 31.7 g/dL (32.0-37.0); MCV 86.2 fL (80.0-97.0); Mean Platelet Volume 11.1 fL (9.5-12.2); Monocytes % (A) 6.1 %; NRBC Per 100 WBC 0 /100 WBCS (0.0-0.0); Neutrophils # (A) 4.09 X 10*3/uL (1.80-7.70); Platelet Count 295 X 10*3/uL (140-440); RBC 4.13 X 10*6/uL (4.10-5.20); RDW 14.4 % (11.5-14.5); WBC 6.59 X 10*3/uL (4.50-10.00)
--- NOTE | 2022-06-24 10:18 | P.PN ---
Progress Note - Text Progress Note Date: 06/24/22 Patient's severe pain and nausea after eating some breakfast. On exam vital signs are stable. Abdomen soft. Patient will remain in hospital Sunday for her lysis of adhesions with Dr. Gloria.
--- NOTE | 2022-06-24 10:37 | P.PN ---
Subjective Progress Note Date: 06/24/22 Patient was supposed to have lysis of adhesion done yesterday however due to or delays the procedure could not be done. General surgery recommended outpatient surgery patient able to tolerate a diet. Unfortunately patient not able to tolerate her diet. Patient will be at the Sunday for her surgery. 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 spontaneously Psych - Calm and cooperative - Labs CBC & Chem 7: 06/24/22 05:59 06/21/22 17:31 Labs: Abnormal Lab Results - Last 24 Hours (Table) 06/24/22 Range/Units 05:59 Hgb 11.3 L (12.0-15.0) g/dL Hct 35.6 L (37.2-46.3) % MCHC 31.7 L (32.0-37.0) g/dL Assessment and Plan Assessment: Epigastric and left upper quadrant abdominal pain Computed tomography scan reviewed by general surgery who believes that her pain is likely due to lysis of overt lesions Patient scheduled for a laparotomy on Sunday Resume Zofran when necessary Pain control with morphine IV fluids Patient continues to have persistent abdominal pain and nausea vomiting when she eats. Chronic conditions Hyperlipidemia, anxiety Resume home meds DVT prophylaxis: Subcu heparin
[2022-06-24 14:09] LABS: African American GFR (CKD) 96.2 (60.0-200.0); Anion Gap 10.8 mmol/L (10.00-18.00); Blood Urea Nitrogen 15.2 mg/dL (9.0-27.0); Carbon Dioxide 26.2 mmol/L (20.0-27.5); Magnesium 1.9 mg/dL (1.5-2.4); Potassium 4.3 mmol/L (3.5-5.5)
[2022-06-25] MEDS: ONDANSETRON 4 MG/2 ML VIAL IVP PRN ×3 (06:55→18:09)
[2022-06-25] MEDS: HYDROmorphone 0.5 MG/0.5 ML SYRINGE IVP PRN ×4 (08:29→23:54)
[2022-06-25] MEDS: FLUoxetine HCL 20 MG CAP PO SCH (08:31)
[2022-06-25] MEDS: ASPIRIN 81 MG PO SCH (08:31)
[2022-06-25] MEDS: HEPARIN SODIUM,PORCINE/PF 5,000 UNIT/0.5 ML SYRINGE SQ SCH ×4 (08:31→23:57)
[2022-06-25] MEDS: ATORVASTATIN 20 MG TAB PO SCH (08:31)
--- NOTE | 2022-06-25 12:58 | P.PN ---
Progress Note - Text Progress Note Date: 06/25/22 Patient still has complaints of pain and some mild dysphagia. On exam vital signs are stable. Abdomen soft. Patient will be scheduled for lyse adhesions Dr. Gloria tomorrow.
--- NOTE | 2022-06-25 13:24 | P.PN ---
Subjective Progress Note Date: 06/25/22 Patient stated that she had a rough night because of nausea and abdominal pain. Patient seen by general surgery this morning who is recommending surgery tomorrow for lysis of adhesions. 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 Chronic conditions Hyperlipidemia, anxiety Resume home meds DVT prophylaxis: Subcu heparin
--- NOTE | 2022-06-25 16:02 | P.PN ---
Subjective Progress Note Date: 06/25/22 CHIEF COMPLAINT: Abdominal pain HISTORY OF PRESENT ILLNESS: The patient is a 56-year-old female admitted due to left upper quadrant epigastric abdominal pain and the presence of gastric bypass. Patient reports intolerance to solid foods. She reports primarily epigastric pain with dysphagia. Additionally, she reports separate left upper quadrant abdominal pain. She was unsuccessful with tolerating regular diet and hence she was kept for admission. ROS: No fevers or chills. No chest pain. PHYSICAL EXAM: VITAL SIGNS: Reviewed CONSTITUTIONAL: Well developed and in no acute distress. EYES: Conjuctivae without sclera icterus. Extraocular movements grossly intact. HEAD, EARS, NOSE, THROAT: Moist buccal mucosa. Head is atraumatic, normocephalic. Hears conversational speech. No nasal drainage. RESPIRATORY: Non-labored respirations and equal bilateral excursions. CARDIOVASCULAR: Palpable 2+ radial pulses. ABDOMEN: No peritonitis. Tender epigastrium and left upper quadrant. MUSCULOSKELETAL: No gross deformity of the lower extremities noted. No clubbing. No cyanosis. SKIN: Good skin turgor. Well perfused. NEUROLOGIC: Cranial nerves II through XII grossly intact. No focal or l ateralizing signs. PSYCH: Appropriate affect. Alert and oriented to person, place and time. CLINICAL LABS: Reviewed. WBC normal. Hemoglobin down 11.9. ASSESSMENT: 1. Abdominal pain due to adhesions 2. Dysphagia with history of gastric stricture PLAN: 1. Recommend upper endoscopy with balloon dilation due to dysphagia and history of gastric bypass 2. Recommend diagnostic laparoscopy with lysis of adhesions due to persistent abdominal pain in presence of gastric bypass Objective - Vital Signs Vital signs: Vital Signs Temp 98.7 F 06/25/22 14:00 Pulse 72 06/25/22 14:00 Resp 18 06/25/22 14:00 BP 110/71 06/25/22 14:00 Pulse Ox 98 06/25/22 14:00 FiO2 Intake & Output 06/24/22 06/25/22 06/25/22 18:59 06:59 18:59 Intake Total 120 Balance 120 Intake: Oral 120 Other: Voiding Method Toilet Toilet # Voids 2 3 1 - Labs CBC & Chem 7: 06/24/22 05:59 06/24/22 05:59
[2022-06-26] MEDS ORDERED: SODIUM CHLORIDE 0.9% 500 ML 500 ML IV ONE (07:51)
[2022-06-26] MEDS ORDERED: LIDOCAINE 2% INJ 20 MG/ML (2 ML VIAL) ONE ×2 (07:51→20:53)
[2022-06-26] MEDS ORDERED: PROPOFOL 10 MG/ML 20 ML VIAL IV ONE ×2 (07:51→20:53)
--- NOTE | 2022-06-26 08:00 | P.HPADDEND ---
H&P Addendum H&P Addendum Date: 06/26/22 Patient reports severe epigastric and substernal pain with history of gastric bypass. We'll proceed with upper endoscopy.
--- NOTE | 2022-06-26 08:11 | P.PCN ---
Date of Procedure: 06/26/22 Description of Procedure: PREOPERATIVE DIAGNOSES: 1. Dysphagia 2. Nausea and vomiting. 3. History of gastric bypass. 4. History of gastric ulcers. 5. Epigastric abdominal pain. POSTOPERATIVE DIAGNOSES: 1. Gastrojejunal ulcer with bleeding, partial obstruction PROCEDURE PERFORMED: Esophagogastrojejunoscopy. SURGEON: Iraida Ashby MD ANESTHESIA: MAC. INDICATIONS: The patient is a 56-year-old female with prior history of Kalyn-en-Y gastric bypass. In the last several weeks, she has had intermittent nausea and vomiting, particularly of the epigastric abdominal pain. With history of Kalyn-en-Y gastric bypass, upper endoscopy was offered for further evaluation and management. DESCRIPTION: Patient was brought to the endoscopy suite and laid in the left lateral decubitus position. After adequate IV sedation, a bite block was placed. An Olympus gastroscope was passed along the posterior oropharynx down to the distal esophagus where the squamocolumnar junction was found at approximately 38 cm from the incisors. Anastomosis was found at 45 cm, consistent with approximately 7 cm gastric pouch. The scope was advanced 60 cm from the incisors. Acute ulcerations with acute bleeding and partial obstruction. Active gastrojejunal ulcerations were encountered. The GI tract was desufflated. The patient tolerated the procedure well. FINDINGS: 1. Acute gastrojejunal ulceration with bleeding and partial obstruction 2. No foreign body found along the anastomosis. PLAN: 1. Protonix 40 mg twice a day for 4 weeks 2. Carafate 1 g twice a day 3. Repeat upper endoscopy 4 weeks
[2022-06-26] MEDS: HYDROmorphone 0.5 MG/0.5 ML SYRINGE IVP PRN ×2 (09:08→13:44)
[2022-06-26] MEDS: HEPARIN SODIUM,PORCINE/PF 5,000 UNIT/0.5 ML SYRINGE SQ SCH ×2 (09:08→17:01)
[2022-06-26] MEDS: FLUoxetine HCL 20 MG CAP PO SCH (09:09)
[2022-06-26] MEDS: PANTOPRAZOLE 40 MG/10 ML VIAL IVP SCH (09:09)
[2022-06-26] MEDS: ATORVASTATIN 20 MG TAB PO SCH (09:10)
[2022-06-26 10:42] LABS: Basophils # (A) 0.03 X 10*3/uL (0.00-0.10); Basophils % (A) 0.5 %; Eosinophils # (A) 0.17 X 10*3/uL (0.04-0.35); Eosinophils % (A) 2.9 %; HCT 38.8 % (37.2-46.3); Immature Grans, Automated 0.3 %; Lymphocytes # (A) 1.54 X 10*3/uL (0.90-5.00); Lymphocytes % (A) 25.9 %; MCH 26.2 pg (27.0-32.0); MCHC 30.9 g/dL (32.0-37.0); MCV 84.7 fL (80.0-97.0); Monocytes % (A) 6.7 %; NRBC Per 100 WBC 0 /100 WBCS (0.0-0.0); Neutrophils # (A) 3.78 X 10*3/uL (1.80-7.70); Neutrophils % (A) 63.7 %; Platelet Count 277 X 10*3/uL (140-440); RBC 4.58 X 10*6/uL (4.10-5.20); RDW 14.3 % (11.5-14.5); WBC 5.94 X 10*3/uL (4.50-10.00)
[2022-06-26 10:50] LABS: African American GFR (CKD) 96.2 (60.0-200.0); BUN/Creat Ratio 18.5 Ratio (12.00-20.00); Blood Urea Nitrogen 14.8 mg/dL (9.0-27.0); Calcium 9.4 mg/dL (8.7-10.3); Potassium 4.2 mmol/L (3.5-5.5)
[2022-06-26] MEDS: SUCRALFATE 1 GM TAB PO SCH ×2 (12:36→17:01)
[2022-06-26] MEDS ORDERED: LACTATED RINGERS 1,000 ML IV ONE ×2 (14:37→23:27)
[2022-06-26] MEDS ORDERED: ONDANSETRON 4 MG/2 ML VIAL IVP ONE (14:38)
[2022-06-26] MEDS ORDERED: DEXAMETHASONE SOD PHOSPHATE 4 MG/ML 1 ML VIAL IVP ONE (14:38)
--- NOTE | 2022-06-26 16:08 | P.PN ---
Subjective Progress Note Date: 06/26/22 This is a 56-year-old female who presented to the hospital with complaints of epigastric abdominal pain. Past surgical history includes Kalyn-en-Y, LAP-BAND with removal, lysis of adhesions, cholecystectomy and EGDs with multiple dilations. 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 Surgery was consulted and initially recommended conservative management. However, patient was unable to tolerate any oral intake. CT AP was obtained which showed post surgical changes. The CT was reviewed by the surgeon and attributed her symptoms to adhesions. She underwent EGJ which showed gastrojejunal ulcer with bleeding and partial obstruction. Patient was seen and examined. No acute events overnight. She is seen after her EGJ. Patient reports well controlled abdominal pain. She is NPO for laparoscopy today. 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 Psych - Calm and cooperative #Epigastric and left upper quadrant abdominal pain Computed tomography scan reviewed by general surgery who believes that her pain is likely due to adhesions Patient scheduled for a laparotomy on Sunday EGJ which showed gastrojejunal ulcer with bleeding and partial obstruction Protonix 40 mg IV BID along with Carafate Zofran as needed for N/V Pain control with Dilaudid PRN Chronic conditions: Hyperlipidemia, anxiety Resume home meds Objective - Vital Signs Vital signs: Vital Signs Temp 97.6 F 06/26/22 14:40 Pulse 67 06/26/22 14:40 Resp 16 06/26/22 14:40 BP 117/57 06/26/22 14:40 Pulse Ox 99 06/26/22 14:40 FiO2 Intake & Output 06/25/22 06/26/22 06/26/22 18:59 06:59 18:59 Intake Total 240 100 Balance 240 100 Intake: IV 100 Oral 240 Other: Voiding Method Toilet Toilet # Voids 1 2 - Labs CBC & Chem 7: 06/26/22 06:55 06/26/22 06:55 Labs: Abnormal Lab Results - Last 24 Hours (Table) 06/26/22 Range/Units 06:55 MCH 26.2 L (27.0-32.0) pg MCHC 30.9 L (32.0-37.0) g/dL
[2022-06-26] MEDS ORDERED: HYDROmorphone 0.5 MG/0.5 ML SYRINGE IVP ONE ×2 (19:00→19:15)
[2022-06-26] MEDS ORDERED: ceFAZolin 1,000 MG VIAL ONE (20:53)
[2022-06-26] MEDS ORDERED: SUCCINYLCHOLINE CHLORIDE 200 MG/10 ML VIAL IV ONE (20:53)
[2022-06-26] MEDS ORDERED: SODIUM CHLORIDE 0.9% 100 ML BAG ONE (20:53)
[2022-06-26] MEDS ORDERED: ePHEDrine 50 MG/ML 1 ML VIAL ONE (20:53)
[2022-06-26] MEDS ORDERED: MIDAZOLAM 2 MG/2 ML VIAL ONE (20:53)
[2022-06-26] MEDS ORDERED: fentaNYL (PF) 50 MCG/ML 2 ML AMP ONE (20:53)
[2022-06-26] MEDS ORDERED: NEOSTIGMINE 1 MG/ML 10 ML VIAL ONE (20:53)
[2022-06-26] MEDS ORDERED: GLYCOPYRROLATE 0.2 MG/ML 2 ML VIAL ONE (20:53)
[2022-06-26] MEDS ORDERED: ROCURONIUM 10 MG/ML (5 ML VIAL) IV ONE (20:53)
[2022-06-26] MEDS ORDERED: HEPARIN SODIUM,PORCINE 5,000 UNIT/ML 1 ML VIAL ONE (20:53)
[2022-06-26] MEDS ORDERED: BUPIVACAIN-EPI 0.25%-1:200,000 30 ML VIAL SQ ONE ×2 (21:11→23:09)
[2022-06-26] MEDS ORDERED: NALOXONE 0.4 MG/ML 1 ML VIAL IV PRN (23:17)
--- NOTE | 2022-06-26 23:24 | P.OP ---
Date of Procedure: 06/26/22 Description of Procedure: SURGEON: WILLIAN HALL MD PREOPERATIVE DIAGNOSES: 1. Epigastric abdominal pain with left upper quadrant abdominal pain 2. Abnormal computed tomography scan with internal hernia 3. History of gastric bypass 4. Gastrointestinal bleeding 5. 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 Internal hernia due with interloop peritoneal adhesions 2. Pelvic adhesions 3. History of gastric bypass 4. Gastrointestinal bleeding 5. 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 Robotic-assisted da Elizabet Xi laparoscopic with extensive lysis of adhesions over 1.5 hr ESTIMATED BLOOD LOSS: 5 mL. SPECIMENS REMOVED: None. COMPLICATIONS: None. OPERATIVE FINDINGS: 1. Severe pelvic adhesions ileum to pelvis lysed 2. Appendix retrocecal right lower quadrant 3. Multiple interloop adhesions pelvis including right lower quadrant lysed 4. Severe interloop adhesions left upper quadrant to jejunojejunostomy lysed, patient's area of pain 5. No internal hernia of the Win's defect 6. No internal hernia of jejunojejunostomy defect 7. Dilated proximal common channel limb without active intussusception INDICATIONS: The patient is a 56-year-old female who presents severe epigastric left upper quadrant abdominal pain unrelieved with medications. CT of the abdomen and pelvis demonstrated mesenteric swirl questionable for internal hernia. With her history of gastric bypass, high incidence of internal hernia peritoneal adhesions described. Surgical intervention with diagnostic laparoscopy, lysis of adhesions were described. Informed consent was obtained. Robotic assisted laparoscopic approach was described. Benefits and risks of the procedure including but not limited to bleeding, infection, injury to the small bowel was described. Informed consent was obtained. DESCRIPTION OF PROCEDURE: Patient was brought to the operating room, placed in supine position. After general induction, the abdomen had been prepped and draped in standard sterile fashion. The robotic da Elizabet XI system was primed. After a timeout protocol was performed, the patient had been prepped and draped in standard sterile fashion. The robot was docked along the right lateral abdomen. The patient was repositioned in with right side up. Please note prior to docking of the robot; however, a 5 mm 0 degrees laparoscopic trocar entry was performed along the left upper quadrant. The abdomen was insufflated to 15 mmHg pressure which she tolerated well. Diagnostic laparoscopy was performed. Next, three 8 mm robotic ports were placed along the right lateral abdominal wall. The camera 8-mm port was maintained along mid-lateral abdomen. Please note that the ports were placed at least 10 to 15 cm away from the target anatomy. Instruments including graspers and vessel sealer were interchanged by the senior administrative assistant. I had sat at the console. No evidence of incisional hernia was identified. The rest of the abdomen was unremarkable for small bowel pathology. The small bowel from the bibi limb to distal ileum was inspected. The small bowel was investigated from the terminal ileum to the ligament of Treitz with finding of redundant mesentery with active small bowel volvulus involving the jejunum to the jejunojejunostomy mesenteric defect. Abnormal adhesions to the jejunojejunostomy was identified and divided. The mesentery small bowel volvulus were reduced. Adhesions along the epigastrium linvolving the transverse colon to the bibi limb with an active internal hernia was lysed using vessel sealer. No herniation of bowel was found along the Win defect or jejunojejunostomy mesenteric defect. Adhesion of gastrojejunal anastomosis to the anterior abdominal wall was released. Moderate gaseous distention of sigmoid colon was identified with an active sigmoid volvulus similarly reduced secondary to highly redundant colon. The terminal ileum and cecum was unremarkable. Extensive lysis of adhesions over 1 hr was performed. The small bowel was viable.The robot was undocked. All pneumoperitoneum instruments were evacuated from the abdominal cavity. The incisions were reapproximated using 4-0 Monocryl in an interrupted subcuticular fashion. Please note along the trocar sites, local anesthetic was placed as a field block prior to insertion of all instruments. Exofin was applied to the skin. At the end of the procedure needle, sponge, and instrument count had been verified correct by the surgical sales representative. The patient was transferred to postanesthesia care unit in stable condition.
[2022-06-26] MEDS ORDERED: fentaNYL PCA 500 MCG/50 ML BAG IV PRN (23:30)
[2022-06-27] MEDS: PANTOPRAZOLE 40 MG/10 ML VIAL IVP SCH ×3 (00:11→20:00)
[2022-06-27] MEDS: HEPARIN SODIUM,PORCINE/PF 5,000 UNIT/0.5 ML SYRINGE SQ SCH ×4 (00:13→23:32)
[2022-06-27] MEDS: ACETAMINOPHEN IV (For NPO) 1,000 MG in EMPTY BAG 1 BAG IVPB SCH ×3 (00:18→12:12)
[2022-06-27] MEDS ORDERED: SODIUM CHLORIDE 0.9% 2,000 ML IV ONE (00:19)
[2022-06-27] MEDS: HYDROmorphone 0.5 MG/0.5 ML SYRINGE IVP PRN ×6 (00:19→19:59)
[2022-06-27] MEDS: ONDANSETRON 4 MG/2 ML VIAL IVP PRN ×2 (00:19→15:12)
[2022-06-27] MEDS: KETOROLAC 15 MG/ML 1 ML VIAL IVP SCH ×5 (00:19→23:32)
[2022-06-27] MEDS: SODIUM CHLORIDE 0.9% 1,000 ML IV SCH ×4 (03:40→23:34)
[2022-06-27] MEDS: SUCRALFATE 1 GM TAB PO SCH ×3 (06:35→16:43)
[2022-06-27] MEDS: SIMETHICONE 40 MG/0.6 ML DROPS 2,000 MG/30 ML BOTTLE PO SCH ×4 (10:00→21:00)
[2022-06-27] MEDS: FLUoxetine HCL 20 MG CAP PO SCH (10:02)
[2022-06-27] MEDS: ATORVASTATIN 20 MG TAB PO SCH (10:02)
--- NOTE | 2022-06-27 14:58 | P.PN ---
Subjective Progress Note Date: 06/27/22 This is a 56-year-old female who presented to the hospital with complaints of epigastric abdominal pain. Past surgical history includes Kalyn-en-Y, LAP-BAND with removal, lysis of adhesions, cholecystectomy and EGDs with multiple dilations. 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 Surgery was consulted and initially recommended conservative management. However, patient was unable to tolerate any oral intake. CT AP was obtained which showed post surgical changes. The CT was reviewed by the surgeon and attributed her symptoms to adhesions. She underwent EGJ which showed gastrojejunal ulcer with bleeding and partial obstruction. Patient underwent laparoscopy with lysis of adhesions on 06/27. Patient was seen and examined. No acute events overnight. Patient reports pain at the site on incision. Nausea has improved. Pain is 2/10 in severity after receiving Dilaudid. Has no attempted to eat anything yet. 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 Psych - Calm and cooperative #Epigastric and left upper quadrant abdominal pain Computed tomography scan reviewed by general surgery who believes that her pain is likely due to adhesions s/p laparoscopy with lysis of adhesions 06/27 EGJ which showed gastrojejunal ulcer with bleeding and partial obstruction Protonix 40 mg IV BID along with Carafate Zofran as needed for N/V Pain control with Dilaudid PRN Advance diet as tolerated Chronic conditions: Hyperlipidemia, anxiety Resume home meds Objective - Vital Signs Vital signs: Vital Signs Temp 98.1 F 06/27/22 08:00 Pulse 81 06/27/22 08:00 Resp 16 06/27/22 08:00 BP 109/66 06/27/22 08:00 Pulse Ox 100 06/27/22 08:00 FiO2 Intake & Output 06/26/22 06/27/22 06/27/22 18:59 06:59 18:59 Intake Total 100 1150 59 Output Total 5 Balance 100 1145 59 Intake: IV 100 1150 Oral 59 Output: Estimated Blood Loss 5 Other: Voiding Method Toilet # Voids 2 - Labs CBC & Chem 7: 06/26/22 06:55 06/26/22 06:55
--- NOTE | 2022-06-27 15:17 | P.PN ---
Subjective Progress Note Date: 06/27/22 CHIEF COMPLAINT: Abdominal pain HISTORY OF PRESENT ILLNESS: Patient is status post robotic assisted da Elizabet laparoscopic with extensive lysis of adhesions. Postop day #1. Patient reports that her pain is better than before. She does report that the pain is in the left upper quadrant. She did have some pain after eating patterns this morning. She denies any nausea vomiting. Denies any flatus. Her EGD had shown a gastrojejunal ulcer with bleeding. Patient does not feel ready for discharge today. Afebrile. No new labs. PHYSICAL EXAM: VITAL SIGNS: Reviewed GENERAL: Well-developed in no acute distress. HEENT: No sclera icterus. Extraocular movements grossly intact. Moist buccal mucosa. Head is atraumatic, normocephalic. Hears conversational speech. No nasal drainage. NECK: Supple without lymphadenopathy. CHEST: Non-labored respirations and equal bilateral excursions. CARDIOVASCULAR: Palpable 2+ radial pulses. ABDOMEN: Soft. Nondistended. Tenderness left upper quadrant. Incision site is clean dry and intact MUSCULOSKELETAL: No clubbing or cyanosis. NEUROLOGIC: No focal or lateralizing signs. Cranial nerves II through XII grossly intact. PSYCH: Appropriate affect. Alert and oriented to person, place and time. SKIN: Well perfused. Good skin turgor. ASSESSMENT: 1. Internal hernia due with interloop peritoneal adhesions 2. Pelvic adhesions 3. History of gastric bypass 4. Gastrointestinal bleeding 5. 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 Signing provider agrees with the documented findings, assessment, and plan of care. Objective - Vital Signs Vital signs: Vital Signs Temp 98.1 F 06/27/22 08:00 Pulse 81 06/27/22 08:00 Resp 16 06/27/22 08:00 BP 109/66 06/27/22 08:00 Pulse Ox 100 06/27/22 08:00 FiO2 Intake & Output 06/26/22 06/27/22 06/27/22 18:59 06:59 18:59 Intake Total 100 1150 Output Total 5 Balance 100 1145 Intake: IV 100 1150 Output: Estimated Blood Loss 5 Other: Voiding Method Toilet # Voids 2 - Labs CBC & Chem 7: 06/26/22 06:55 06/26/22 06:55
[2022-06-27] MEDS: ACETAMINOPHEN TAB 500 MG TAB PO SCH ×2 (17:55→23:33)
[2022-06-28] MEDS: HYDROmorphone 0.5 MG/0.5 ML SYRINGE IVP PRN (04:47)
[2022-06-28] MEDS: KETOROLAC 15 MG/ML 1 ML VIAL IVP SCH (06:16)
[2022-06-28] MEDS: ACETAMINOPHEN TAB 500 MG TAB PO SCH (06:17)
[2022-06-28] MEDS: HEPARIN SODIUM,PORCINE/PF 5,000 UNIT/0.5 ML SYRINGE SQ SCH (08:20)
[2022-06-28] MEDS: SIMETHICONE 40 MG/0.6 ML DROPS 2,000 MG/30 ML BOTTLE PO SCH (08:21)
[2022-06-28] MEDS: FLUoxetine HCL 20 MG CAP PO SCH (08:21)
[2022-06-28] MEDS: PANTOPRAZOLE 40 MG/10 ML VIAL IVP SCH (08:21)
[2022-06-28] MEDS: ATORVASTATIN 20 MG TAB PO SCH (08:21)
[2022-06-28] MEDS: SUCRALFATE 1 GM TAB PO SCH (08:21)
[2022-06-28 08:42] VITALS: BP 122/70; PULSE 69; RESP 16; TEMP 97.6
--- NOTE | 2022-06-28 11:26 | P.DS ---
Providers Date of admission: 06/23/22 15:24 Expected date of discharge: 06/28/22 Attending physician: Shana Pino MD Consults: 06/22/22 08:16 Consult Physician Routine Consulting Provider: Iraida Ashby Consult Reason/Comments: Abdominal pain, known to her Do you want consulting provider notified?: Yes 06/22/22 11:55 Consult Physician Routine Consulting Provider: [facility] Consult Reason/Comments: [facility] Do you want consulting provider notified?: Yes Primary care physician: [facility] [place] [facility] Course: This is a 56-year-old female who presented to the hospital with complaints of epigastric abdominal pain. Past surgical history includes Kalyn-en-Y, LAP-BAND with removal, lysis of adhesions, cholecystectomy and EGDs with multiple dilations. 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 Surgery was consulted and initially recommended conservative management. However, patient was unable to tolerate any oral intake. CT AP was obtained which showed post surgical changes. The CT was reviewed by the surgeon and attributed her symptoms to adhesions. She underwent EGJ which showed gastrojejunal ulcer with bleeding and partial obstruction. Patient underwent laparoscopy with lysis of adhesions on 06/27. Patient was seen and examined. No acute events overnight. Patient reports complete resolution of her pain. No more nausea. Tolerating oral intake comfortably. Pertinent studies include CTAP Pertinent procedures include EJD and lysis of adhesions. 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 Follow up with PCP within 1-2 days of discharge. [facility]. This complex discharge took 35 minutes to complete. Patient Condition at Discharge: Good Plan - Discharge Summary New Discharge Prescriptions: New Sucralfate [Carafate] 1 gm PO BID #60 tablet Acetaminophen Tab [Tylenol] 1,000 mg PO Q6HR PRN #30 tablet PRN Reason: Pain Omeprazole [PriLOSEC] 40 mg PO BID #60 cap Continue Atorvastatin [Lipitor] 20 mg PO DAILY FLUoxetine HCL 40 mg PO DAILY Discontinued Aspirin EC [Ecotrin Low Dose] 81 mg PO DAILY Discharge Medication List Atorvastatin [Lipitor] 20 mg PO DAILY 01/13/21 [History] FLUoxetine HCL 40 mg PO DAILY 06/21/22 [History] Omeprazole [PriLOSEC] 40 mg PO BID #60 cap 06/26/22 [Rx] Sucralfate [Carafate] 1 gm PO BID #60 tablet 06/26/22 [Rx] Acetaminophen Tab [Tylenol] 1,000 mg PO Q6HR PRN #30 tablet 06/27/22 [Rx] Follow up Appointment(s)/Referral(s): Hong Live III, MD [Primary Care Provider] [facility] [place] [facility] - [facility]22 Patient Instructions/Handouts: Diet for Stomach Ulcers and Gastritis (ED) Discharge Disposition: HOME SELF-CARE
== END 2022-06-28 10:20 | disposition home or self-care (01) | DRG 335 ==
LOC: EC 16:16 → 6NMEDSUR 22:39 → OBSVTOIN 06-23 15:24
PROVIDERS: ADMIT Internal Medicine; ATTEND Internal Medicine
PROC: 0DJ08ZZ Inspection of Upper Intestinal Tract, Via Natural or Artificial Opening Endoscopic (ICD-10-PCS; 2022-06-26)
PROC: 8E0W4CZ Robotic Assisted Procedure of Trunk Region, Percutaneous Endoscopic Approach (ICD-10-PCS; principal; 2022-06-26 07:30)
PROC: 0DNW4ZZ Release Peritoneum, Percutaneous Endoscopic Approach (ICD-10-PCS; principal; 2022-06-26 07:30)
PROC: 0DSN4ZZ Reposition Sigmoid Colon, Percutaneous Endoscopic Approach (ICD-10-PCS; principal; 2022-06-26 07:30)
DX: K28.0 Acute gastrojejunal ulcer with hemorrhage (principal); K56.2 Volvulus; K66.0 Peritoneal adhesions (postprocedural) (postinfection); K44.9 Diaphragmatic hernia without obstruction or gangrene; E78.5 Hyperlipidemia, unspecified; K21.9 Gastro-esophageal reflux disease without esophagitis; R13.10 Dysphagia, unspecified; F41.9 Anxiety disorder, unspecified; R19.7 Diarrhea, unspecified; Z79.82 Long term (current) use of aspirin; Z79.899 Other long term (current) drug therapy; Z98.84 Bariatric surgery status; Z87.891 Personal history of nicotine dependence; Z88.5 Allergy status to narcotic agent; Z88.8 Allergy status to other drugs, medicaments and biological substances
CPT/HCPCS: 36415; 43239; 74177; 80048; 80053; 81003; 82150; 83605; 83690; 83735; 84484; 85025; 85652; 86140; 96374; 96375; 99285

== ENCOUNTER → 2022-07-05 | Outpatient (CLI) | payer BC ==
[2022-07-05 14:21] VITALS: BP 147/76; PULSE 96; TEMP 98.1; BMI 41.8
--- NOTE | 2022-07-05 14:24 | P.BASOAP ---
Subjective Progress Note Date: 07/05/22 She no longer has pain from before. She is now having bowel movements. Lactulose prescription advised. She reports constipation advised. Back to work Jul 17. Objective - Vital Signs Vital signs: Vital Signs Temp 98.1 F 07/05/22 14:15 Pulse 96 07/05/22 14:15 Resp BP 147/76 07/05/22 14:15 Pulse Ox FiO2 Intake & Output 07/04/22 07/05/22 07/05/22 18:59 06:59 18:59 Weight 113.852 kg Assessment/Plan Plan: Date: 07/05/22 Initial Weight: 123.06 kg Initial BMI: 45.1 Current Weight: 113.852 kg Current BMI: 41.8 Type of Surgery: Total Volume in Band: Previous Volume: Volume Removed: Volume Added: Band Size:
[2022-07-05 15:19] LABS: INR 0.9 (<1.2); Prothrombin Time 9.4 sec (9.0-12.0)
[2022-07-05 15:29] LABS: Partial Thromboplastin Time 20.3 sec (22.0-30.0)
[2022-07-05 19:03] LABS: HCT 37.4 % (37.2-46.3); HGB 11.8 g/dL (12.0-15.0); MCH 27.8 pg (27.0-32.0); MCHC 31.6 g/dL (32.0-37.0); Mean Platelet Volume 12.4 fL (9.5-12.2); NRBC Per 100 WBC 0 /100 WBCS (0.0-0.0); Platelet Count 240 X 10*3/uL (140-440); RBC 4.25 X 10*6/uL (4.10-5.20); RDW 15.4 % (11.5-14.5); WBC 7.75 X 10*3/uL (4.50-10.00)
[2022-07-05 19:39] LABS: % Iron Saturation 6.36 (12.00-45.00); ALT 14 U/L (8-44); AST 20 U/L (13-35); African American GFR (CKD) 96.2 (60.0-200.0); Albumin 4.5 g/dL (3.8-4.9); Albumin/Globulin Ratio 1.96 (1.60-3.17); Alkaline Phosphatase 146 U/L (41-126); BUN/Creat Ratio 14.13 Ratio (12.00-20.00); Blood Urea Nitrogen 11.3 mg/dL (9.0-27.0); Calcium 9.1 mg/dL (8.7-10.3); Carbon Dioxide 23.3 mmol/L (20.0-27.5); Chloride 102 mmol/L (96-109); Ferritin 27.8 ng/mL (10.0-291.0); Globulin 2.3 g/dL (1.6-3.3); Glucose 100 mg/dL (70-110); Iron 29 ug/dL (50-170); Phosphorus 3.1 mg/dL (2.4-5.1); Potassium 4.1 mmol/L (3.5-5.5); Sodium 139 mmol/L (135-145); Total Iron Binding Capacity 461 ug/dL (228-460); Total Protein 6.8 g/dL (6.2-8.2)
[2022-07-05 21:59] LABS: Chol/HDL Ratio 2.61 Ratio; LDL Cholesterol,Calculated 58.2 mg/dL (0.0-131.0); Prealbumin 15.8 mg/dL (18.0-42.0)
[2022-07-07 07:05] LABS: Vit B1(Thiamine) 54 ug/L (38-122)
[2022-07-07 14:12] LABS: Vitamin A 41 ug/dL (38-106)
== END ==
LOC: BARWHC3 13:11
PROVIDERS: ATTEND Surgery Plastic and Reconstructive Surgery
DX: E66.01 Morbid (severe) obesity due to excess calories (principal); Z68.41 Body mass index [BMI] 40.0-44.9, adult; Z88.5 Allergy status to narcotic agent; Z91.041 Radiographic dye allergy status; Z91.09 Other allergy status, other than to drugs and biological substances; F17.200 Nicotine dependence, unspecified, uncomplicated; D50.9 Iron deficiency anemia, unspecified; K90.89 Other intestinal malabsorption; E55.9 Vitamin D deficiency, unspecified; K74.1 Hepatic sclerosis; N19 Unspecified kidney failure; T56.894A Toxic effect of other metals, undetermined, initial encounter; K50.90 Crohn's disease, unspecified, without complications
CPT/HCPCS: 80053; 80061; 82306; 82525; 82607; 82728; 82746; 83036; 83540; 83550; 83735; 83970; 84100; 84134; 84255; 84425; 84443; 84590; 84630; 85027; 85610; 85730; 99211

== ENCOUNTER → 2023-02-01 | Outpatient (CLI) | payer BC ==
[2023-02-01 10:58] LABS: Basophils # (A) 0.03 X 10*3/uL (0.00-0.10); Basophils % (A) 0.6 %; Eosinophils # (A) 0.13 X 10*3/uL (0.04-0.35); Eosinophils % (A) 2.4 %; HCT 39.2 % (37.2-46.3); HGB 12.9 d/dL (12.0-15.0); Lymphocytes # (A) 1.56 X 10*3/uL (0.90-5.00); Lymphocytes % (A) 29.4 %; MCH 30.2 pg (27.0-32.0); MCHC 32.9 d/dL (32.0-37.0); MCV 91.8 FL (80.0-97.0); Monocytes # (A) 0.47 X 10*3/uL (0.20-1.00); Monocytes % (A) 8.9 %; NRBC Per 100 WBC 0 X 10*3/uL (0.00-0.01); Neutrophils % (A) 58.3 %; Platelet Count 285 X 10*3/uL (140-440); RBC 4.27 X 10*6/uL (4.10-5.20); RDW 12.8 % (11.5-14.5); WBC 5.31 X 10*3/uL (4.50-10.00)
[2023-02-01 11:19] LABS: ALT 12 U/L (8-44); AST 19 U/L (13-35); Albumin 4.5 d/dL (3.8-4.9); Albumin/Globulin Ratio 1.88 Ratio (1.60-3.17); Alkaline Phosphatase 147 U/L (41-126); BUN/Creat Ratio 20.25 Ratio (12.00-20.00); Blood Urea Nitrogen 16.2 mg/dL (9.0-27.0); Calcium 9.6 mg/dL (8.7-10.3); Chloride 103 mmol/L (96-109); Chol/HDL Ratio 3.54 Ratio; Globulin 2.4 d/dL (1.6-3.3); Glucose 91 mg/dL (70-110); Iron 88 UG/DL (50-170); LDL Cholesterol,Calculated 113.2 mg/dL (0.0-131.0); Potassium 4.5 mmol/L (3.5-5.5); Rheumatoid Factor, Qnt <15 IU/mL (0-15); Sodium 141 mmol/L (135-145); Total Bilirubin 0.3 mg/dL (0.3-1.2); Total Iron Binding Capacity 386 UG/DL (228-460); Total Protein 6.9 d/dL (6.2-8.2); Uric Acid 7.2 mg/dL (2.9-7.7)
[2023-02-01 12:08] LABS: Erythrocyte Sedimentation Rate 38 mm/Hr (0-30)
== END | disposition home or self-care (01) ==
LOC: LABWHC1 06:51
PROVIDERS: ATTEND Family Medicine
DX: M25.50 Pain in unspecified joint (principal); M79.18 Myalgia, other site; D50.8 Other iron deficiency anemias; K21.9 Gastro-esophageal reflux disease without esophagitis; G47.09 Other insomnia; E78.2 Mixed hyperlipidemia; E55.9 Vitamin D deficiency, unspecified; E53.9 Vitamin B deficiency, unspecified; R53.83 Other fatigue; R63.5 Abnormal weight gain; R51.9 Headache, unspecified; Z98.84 Bariatric surgery status
CPT/HCPCS: 36415; 80053; 80061; 82306; 82607; 82728; 83540; 83550; 84425; 84443; 84550; 85025; 85652; 86038; 86140; 86431

== ENCOUNTER 2023-06-06 09:24 | Observation (INO) | payer BC ==
[2023-06-06] MEDS ORDERED: HYDROmorphone 1 MG/ML 1 ML SYRINGE IVP STA (11:18)
[2023-06-06 11:19] LABS: Basophils % (A) 0 %; Eosinophils # (A) 0.1 k/uL (0-0.7); Eosinophils % (A) 1 %; HCT 40.3 % (34.0-46.0); HGB 13.3 gm/dL (11.4-16.0); Lymphocytes # (A) 1.2 k/uL (1.0-4.8); Lymphocytes % (A) 14 %; MCH 30.9 pg (25.0-35.0); MCHC 33.1 g/dL (31.0-37.0); MCV 93.2 fL (80.0-100.0); Monocytes # (A) 0.2 k/uL (0-1.0); Monocytes % (A) 3 %; Neutrophils # (A) 6.7 k/uL (1.3-7.7); Neutrophils % (A) 81 %; Platelet Count 273 k/uL (150-450); RBC 4.32 m/uL (3.80-5.40); RDW 13.6 % (11.5-15.5); WBC 8.3 k/uL (3.8-10.6)
[2023-06-06 11:29] LABS: INR 0.8 (<1.2); Partial Thromboplastin Time 23.1 sec (22.0-30.0); Prothrombin Time 9.5 sec (10.0-12.5)
[2023-06-06 11:40] LABS: ALT 19 U/L (4-34); AST 26 U/L (14-36); African American GFR (CKD) >90 (>60 ml/min/1.73 sqM); Albumin 4.3 g/dL (3.5-5.0); Alkaline Phosphatase 165 U/L (38-126); Anion Gap 12 mmol/L; Blood Urea Nitrogen 15 mg/dL (7-17); Calcium 9.5 mg/dL (8.4-10.2); Carbon Dioxide 21 mmol/L (22-30); Chloride 106 mmol/L (98-107); Glucose 110 mg/dL (74-99); Lipase 92 U/L (23-300); Magnesium 2.1 mg/dL (1.6-2.3); Non-African American GFR(CKD) >90 (>60 ml/min/1.73 sqM); Potassium 4.4 mmol/L (3.5-5.1); Sodium 139 mmol/L (137-145); Total Bilirubin 0.4 mg/dL (0.2-1.3); Total Protein 6.9 g/dL (6.3-8.2)
--- NOTE | 2023-06-06 11:41 | XR ---
EXAMINATION TYPE: XR chest 2V DATE OF EXAM: 06/06/2023 COMPARISON: 02/06/2020 TECHNIQUE: PA and lateral views submitted. HISTORY: Chest pain FINDINGS: The lungs are clear and there is no pneumothorax, pleural effusion, or focal pneumonia. Heart size normal and no overt failure. Osseous structures demonstrate hypertrophic and degenerative changes of the spine. IMPRESSION: 1. No acute process.
--- NOTE | 2023-06-06 13:40 | ED ---
Chest Pain HPI - General Chief Complaint: Chest Pain Stated Complaint: Chest Pain Source: patient Mode of arrival: ambulatory Limitations: no limitations - History of Present Illness Initial Comments: 57-year-old female with past history of obesity status post gastric bypass, high cholesterol who presents to the emergency department reporting chest pain. States that she awoke this morning and felt nauseated. She began having chest pain in the left side of her chest which radiated straight through to her back as well as to her left arm. She has no history of cardiac disease. States the pain is worse with deep breathing. Denies history of DVT or PE. She did not attempt to take any medications for her symptoms. She reports a previous cardiac catheterization after an abnormal ultrasound however denies having any stents placed. Pain is currently 7 out of 10. Denies numbness or tingling in her extremities. Denies calf pain or swelling. She does admit to significant issues with bleeding stomach ulcers. No other alleviating, precipitating or modifying factors - Related Data Home Medications Medication Instructions Recorded Confirmed Atorvastatin [Lipitor] 20 mg PO DAILY 01/13/21 06/06/23 DULoxetine HCL [Cymbalta] 30 mg PO BID 06/06/23 06/06/23 Multivitamins, Thera [Multivitamin 1 tab PO DAILY 06/06/23 06/06/23 (formulary)] Allergies Allergy/AdvReac Type Severity Reaction Status Date / Time codeine Allergy Severe Anaphylaxis Verified 06/06/23 11:06 iodine Allergy Severe Rash/Hives Verified 06/06/23 11:06 povidone-iodine Allergy Rash/Hives Verified 06/06/23 11:06 [From Betadine] soap [From Betadine] Allergy Rash/Hives Verified 06/06/23 11:06 Review of Systems ROS Statement: Those systems with pertinent positive or pertinent negative responses have been documented in the HPI. ROS Other: All systems not noted in ROS Statement are negative. Past Medical History Past Medical History: Fibromyalgia, GERD/Reflux, Neurologic Disorder, Pneumonia, Syncope Additional Past Medical History / Comment(s): Epilepsy- A CHILD-LAST SEIZURE AT AGE 13, "borderline cholesterol-no tx" History of Any Multi-Drug Resistant Organisms: None Reported Past Surgical History: Bariatric Surgery, Section, Cholecystectomy, Hysterectomy, Tonsillectomy Additional Past Surgical History / Comment(s): Lap band insertion and removal followed by a gastric bypass, abdominoplasty Past Anesthesia/Blood Transfusion Reactions: Motion Sickness, Postoperative Nausea & Vomiting (PONV) Additional Past Anesthesia/Blood Transfusion Reaction / Comment(s): CLAUSTROPHOBIA, motion sickness as child, no PONV in a long time Past Psychological History: Anxiety Smoking Status: Former smoker Past Alcohol Use History: Occasional Past Drug Use History: None Reported - Past Family History Father Family Medical History: Cancer Additional Family Medical History / Comment(s): prostate CANCER Mother Family Medical History: Deep Vein Thrombosis (DVT), Pulmonary Embolus Additional Family Medical History / Comment(s): . General Exam Limitations: no limitations Course Vital Signs 06/06/23 06/06/23 06/06/23 09:26 10:56 12:57 Temperature 98.6 F Pulse Rate 120 H 91 Respiratory 18 128 H 20 Rate Blood Pressure 135/83 138/78 O2 Sat by Pulse 100 98 Oximetry 06/06/23 15:45 Temperature Pulse Rate 82 Respiratory 18 Rate Blood Pressure 135/76 O2 Sat by Pulse 99 Oximetry Chest Pain MDM - MDM Was pt. sent in by a medical professional or institution (, PA, DOCUMENT RESTORER, urgent care, hospital, or usp...) When possible be specific @ -No Did you speak to anyone other than the patient for history (EMS, parent, family, police, friend...)? What history was obtained from this source @ -No Did you review nursing and triage notes (agree or disagree)? Why? @ -I reviewed and agree with nursing and triage notes Were old charts reviewed (outside hosp., previous admission, EMS record, old EKG, old radiological studies, urgent care reports/EKG's, usp records)? Report findings @ -No old charts were reviewed Differential Diagnosis (chest pain, altered mental status, abdominal pain women, abdominal pain men, vaginal bleeding, weakness, fever, dyspnea, syncope, headache, dizziness, GI bleed, back pain, seizure, CVA, palpatations, mental he alth, musculoskeletal)? @ -not applicable EKG interpreted by me (3pts min.). @ -ES and demonstrates sinus tachycardia with a rate of 105. NV interval 156. QRS 81. QTC of 374. No acute ST segment elevations or depressions X-rays interpreted by me (1pt min.). @ -None done CT interpreted by me (1pt min.). @ -None done U/S interpreted by me (1pt. min.). @ -None done What testing was considered but not performed or refused? (CT, X-rays, U/S, labs)? Why? @ -None What meds were considered but not given or refused? Why? @ -None Did you discuss the management of the patient with other professionals (professionals i.e. Dr., PA, DOCUMENT RESTORER, lab, RT, psych nurse, high school social science teacher, bowling ball engraver, teacher, chief innovation officer, rn field case manager)? Give summary @ -No Was smoking cessation discussed for >3mins.? @ -No Was critical care preformed (if so, how long)? @ -No Were there social determinants of health that impacted care today? How? (Homelessness, low income, unemployed, alcoholism, drug addiction, transportation, low edu. Level, literacy, decrease access to med. care, long-term, rehab)? @ -No Was there de-escalation of care discussed even if they declined (Discuss DNR or withdrawal of care, Hospice)? DNR status @ -No What co-morbidities impacted this encounter? (DM, HTN, Smoking, COPD, CAD, Cancer, CVA, ARF, Chemo, Hep., AIDS, mental health diagnosis, sleep apnea, morbid obesity)? @ -None Was patient admitted / discharged? Hospital course, mention meds given and route, prescriptions, significant lab abnormalities, going to OR and other pertinent info. @ -Upon arrival patient was placed into bed 11. A thorough history and physical exam was performed. Patient does arrive tachycardic. She is placed on continuous pulse ox and cardiac monitoring. Twelve-lead EKG is obtained which demonstrates a sinus tachycardia. Patient was given 1 mg of Dilaudid for pain control as she does have an ALLERGY to codeine. Laboratory studies are conducted. D-dimer is negative troponin is negative. Results are discussed with the patient. She does have risk factors for heart disease. Did discuss the possible treatment options and patient wishes to stay for further cardiac workup. I did call and speak with Dr. Conklin for admission. He was agreeable to this. Cardiology will be placed on consult Undiagnosed new problem with uncertain prognosis? @ -No Drug Therapy requiring intensive monitoring for toxicity (Heparin, Nitro, Insulin, Cardizem)? @ -No Were any procedures done? @ -No Diagnosis/symptom? @ -default Acute, or Chronic, or Acute on Chronic? @ -default Uncomplicated (without systemic symptoms) or Complicated (systemic symptoms)? @ -default Side effects of treatment? @ -No Exacerbation, Progression, or Severe Exacerbation? @ -No Poses a threat to life or bodily function? How? (Chest pain, [place], [place], pneumonia, PE, COPD, DKA, ARF, appy, cholecystitis, CVA, Diverticulitis, Homicidal, Suicidal, threat to staff... and all critical care pts) @ -No Disposition Clinical Impression: Chest pain Disposition: ADMITTED IP TO THIS [facility] Condition: Stable Is patient prescribed a controlled substance at d/c from ED?: No Time of Disposition: 13:59 Decision to Admit Reason: Admit from EC Decision Date: 06/06/23 Decision Time: 13:59
[2023-06-06] MEDS ORDERED: NALOXONE 0.4 MG/ML 1 ML VIAL IV PRN (13:59)
[2023-06-06] MEDS: HEPARIN SODIUM,PORCINE 5,000 UNIT/ML 1 ML VIAL SQ SCH ×2 (17:03→23:12)
[2023-06-06] MEDS: PANTOPRAZOLE 40 MG/10 ML VIAL IVP SCH (17:05)
[2023-06-06] MEDS ORDERED: NITROGLYCERIN SL TABS 0.4 MG TAB SUBLINGUAL PRN (18:13)
[2023-06-06] MEDS ORDERED: ACETAMINOPHEN TAB 325 MG TAB PO PRN (18:13)
[2023-06-06] MEDS ORDERED: NITROGLYCERIN OINT 1 INCH/GM PACKET TOPICAL STA (20:07)
[2023-06-06] MEDS: DULoxetine HCL 30 MG CAPSULE.DR PO SCH (21:55)
--- NOTE | 2023-06-06 22:19 | CT ---
EXAMINATION TYPE: CT abdomen pelvis wo con DATE OF EXAM: 06/06/2023 COMPARISON: 06/21/2022 INDICATION: Unspecified abdominal pain. DLP: 1319.20 mGycm, Automated exposure control for dose reduction was used. CONTRAST: 0 mL of Isovue 300. Study performed without Oral Contrast TECHNIQUE: Axial images were obtained from above the diaphragm to the pubic rami in the axial plane a t 5 mm thick sections. Reconstructed images are reviewed on the computer in the coronal plane. FINDINGS: Limited CT sections are obtained the lung bases. The lung bases are clear. CT ABDOMEN: Gastric sleeve is evident. Liver: Normal Spleen: Normal Pancreas: Normal Adrenal glands: The adrenal glands are normal. Gallbladder: Surgically absent Kidneys: No masses are evident. No hydronephrosis is present. No cysts are present. No renal stone s are evident. Aorta: Vascular calcification is within the aorta. Inferior vena cava: Normal. CT PELVIS: Loops of bowel within the abdomen and pelvis are normal. Studies without oral contrast limiting e valuation. Appendix: Normal as visualized. Urinary bladder: Normal. Genitourinary structures: Uterus and ovaries are not identified. Osseous structures: No suspicious lytic or sclerotic lesions. IMPRESSION: 1. No suspicious acute changes to account for abdomen pain.
--- NOTE | 2023-06-06 22:59 | P.HPIM ---
History of Present Illness H&P Date: 06/06/23 Chief Complaint: Chest pain Patient is a 57-year-old female with a past medical history of Kalyn en y, lap band with removal and lysis of adhesions, cholecystectomy and laparoscopic lysis of additions in June 2022 and also gastro delusional ulcer with chronic bleed presents ER with complaints of chest pain. Patient states that she woke up this morning and felt dizzy and nauseated. She got up and getting ready to have breakfast and started having chest pain mainly in the left retrosternal region stabbing pain rating to the left arm and to the back. Pain was 7 out of 10 in severity and felt like heart racing or fast. Patient has been having constant since then. Patient was given Dilaudid IV in the ER which seem to improve her pain. No complaints of shortness of breath. Otherwise denies any complaints of cough or sputum production. Denies any recent illnesses. No leg swelling. Denies any hematemesis or melena. She did have an episode of diarrhea yesterday which is not unusual for her. Patient states that she had cardiac catheterization but no stent was placed. Chest x-ray showed no acute process. EKG showed sinus tachycardia with low QRS voltage in precordial leads. Laboratory data showed WBC 8.3 hemoglobin 13.3 and platelets 273 Sodium 139 potassium 4.4 chloride 106 bicarb is 21 BUN 15 and creatinine 0.58, blood sugar 110 and magnesium 2.1, AST 26 ALT 19 alk phos 165 and troponin x1 negative. D-dimer 0.27, lipase level is 92. Review of Systems Constitutional: Patient denies any fever or chills . no Generalized weakness. Abdomen: Patient denied any nausea or vomiting or abd. pain Cardiovascular: Patient complains of chest pain. No short of breath no palpitations. No leg swelling. Respiratory: patient denied any cough . no sputum production. No shortness of breath Neurologic: Patient denied any numbness or tingling headache. Musculoskeletal: Patient denies any complaints of joint swelling or deformity. Skin: Negative Psychiatric: Negative Endocrine: No heat or cold intolerance. No recent weight gain. Genitourinary: No dysuria or hematuria. All other 14 point ROS negative except the above Past Medical History Past Medical History: Fibromyalgia, GERD/Reflux, Neurologic Disorder, Pneumonia, Syncope Additional Past Medical History / Comment(s): Epilepsy- A CHILD-LAST SEIZURE AT AGE 13, "borderline cholesterol-no tx" History of Any Multi-Drug Resistant Organisms: None Reported Past Surgical History: Bariatric Surgery, Section, Cholecystectomy, Hysterectomy, Tonsillectomy Additional Past Surgical History / Comment(s): Lap band insertion and removal followed by a gastric bypass, abdominoplasty Past Anesthesia/Blood Transfusion Reactions: Motion Sickness, Postoperative Nausea & Vomiting (PONV) Additional Past Anesthesia/Blood Transfusion Reaction / Comment(s): CLAUSTROPHOBIA, motion sickness as child, no PONV in a long time Past Psychological History: Anxiety Smoking Status: Former smoker Past Alcohol Use History: Occasional Past Drug Use History: None Reported - Past Family History Father Family Medical History: Cancer Additional Family Medical History / Comment(s): prostate CANCER Mother Family Medical History: Deep Vein Thrombosis (DVT), Pulmonary Embolus Additional Family Medical History / Comment(s): . Medications and Allergies Home Medications Medication Instructions Recorded Confirmed Type Atorvastatin [Lipitor] 20 mg PO DAILY 01/13/21 06/06/23 History DULoxetine HCL [Cymbalta] 30 mg PO BID 06/06/23 06/06/23 History Multivitamins, Thera [Multivitamin 1 tab PO DAILY 06/06/23 06/06/23 History (formulary)] Allergies Allergy/AdvReac Type Severity Reaction Status Date / Time codeine Allergy Severe Anaphylaxis Verified 06/06/23 11:06 iodine Allergy Severe Rash/Hives Verified 06/06/23 11:06 povidone-iodine Allergy Rash/Hives Verified 06/06/23 11:06 [From Betadine] soap [From Betadine] Allergy Rash/Hives Verified 06/06/23 11:06 Physical Exam Vitals: Vital Signs Temp Pulse Resp BP Pulse Ox 06/06/23 15:45 82 18 135/76 99 06/06/23 12:57 91 20 138/78 98 06/06/23 10:56 128 H 06/06/23 09:26 98.6 F 120 H 18 135/83 100 Intake and Output 06/06/23 06/06/23 06/06/23 06:59 14:59 22:59 Other: Weight 117.934 kg PHYSICAL EXAMINATION: Patient is lying in the bed comfortably, no acute distress, awake alert and oriented. Morbidly obese.. HEENT: Normocephalic. Neck is supple. Pupils reactive. Nostrils clear. Oral cavity is moist. Neck reveals no JVD, carotid bruits, or thyromegaly. CHEST EXAMINATION: Trachea is central. Symmetrical expansion. Bibasilar diminished sounds. No wheezing or rhonchi. Nonlabored breathing.. CARDIAC: Normal S1, S2 with no gallops. No murmurs ABDOMEN: Soft. Bowel sounds present. Nontender. No epigastric tenderness. No organomegaly. No abdominal bruits. Extremities: reveal no edema. No clubbing or cyanosis Neurologically awake, alert, oriented x3 with well-coordinated movements. No focal deficits noted Skin: No rash or skin lesions. Psychiatric: Coperative. Nonsuicidal, Musculoskeletal: No joint swelling or deformity. Normal range of motion. Results CBC & Chem 7: 06/06/23 10:42 06/06/23 10:42 Labs: Abnormal Lab Results - Last 24 Hours (Table) 06/06/23 06/06/23 Range/Units 10:42 10:42 PT 9.5 L (10.0-12.5) sec Carbon Dioxide 21 L (22-30) mmol/L Glucose 110 H (74-99) mg/dL Alkaline Phosphatase 165 H (38-126) U/L Thrombosis Risk Factor Assmnt - DVT/VTE Prophylaxis DVT/VTE Prophylaxis: Pharmacologic Prophylaxis ordered Assessment and Plan Assessment: Chest pain. Rule out ACS. History of cardiac catheterization. No PCI History of gastric bypass surgery. Status post lysis of adhesion during admission in June 2022 Prior history of lap band insertion and removal Fibromyalgia Anxiety Prior history of smoking Morbid obesity with BMI 43.3 DVT prophylaxis with heparin subcu Plan: Patient will be continued telemetry monitoring. Serial EKG and troponin x3. Nitro-Bid to the patient continues to have pain.. Ordered Tylenol and was given a dose of IV Dilaudid in the ER. Started on PPI 40 mg IV daily. ordered 2D Echo Cardiology consult for further evaluation. Continue to follow closely. Time with Patient: Greater than 30
[2023-06-06] MEDS ORDERED: SODIUM CHLORIDE 0.9% 1,000 ML IV SCH (23:15)
[2023-06-07] MEDS: NITROGLYCERIN OINT 1 INCH/GM PACKET TOPICAL SCH ×2 (01:04→12:37)
[2023-06-07] MEDS ORDERED: ATORVASTATIN 20 MG TAB PO SCH (09:00)
[2023-06-07] MEDS ORDERED: MULTIVITAMINS, THERA 1 EACH TAB PO SCH (09:00)
[2023-06-07] MEDS ORDERED: ASPIRIN 81 MG PO SCH (09:00)
--- NOTE | 2023-06-07 09:09 | P.CRDCN ---
History of Present Illness Consult date: 06/07/23 Consult reason: chest pain History of present illness: History of present illness: This is a 57 year old female previously seen in the office with Dr. SKINNY Jacob in 2019 for one visit only. She has a past medical history of hyperlipidemia, status post gastric bypass, remote history of smoking. We have been asked to evaluate the patient for chest pain. Patient states she no longer follows with [facility]. She states she became dizzy and then developed chest pain. 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 She states she had sharp pain to her back and it involved her left arm. She was sitting when it started. She also had a little shortness of breath and a little dizziness. It lasted most of the day yesterday and she received Dilaudid and nitroglycerin in the ER. Nitroglycerin caused vomiting. The pain eventually did resolve. She denies having any dyspnea on exertion, no lower extremity sandoval ma, no palpitations, no dizziness. She is normally not very active. Her heart rate on arrival was 120. EKG #1 sinus tachycardia at 105 bpm, #2 sinus rhythm 77 bpm Chest x-ray: No acute process CT of the abdomen and pelvis no suspicious acute changes. CBC normal. INR 0.8. D-dimer 0.27. Potassium 4.4, creatinine 0.58. Troponin negative 3. Alkaline phosphatase 165 otherwise liver function tests are normal. Blood sugar 110. Lipase 92. Home cardiac medications: Atorvastatin 20 mg daily Cardiac catheterization 10/2019 no significant coronary artery disease Echocardiogram 2019: EF 55%. Review Of Systems: At the time of my evaluation: Constitutional: No fever, no chills. No weakness, fatigue or lethargy. EENT: No headache. No dizziness. Lungs: No shortness of breath, cough, no sputum production. No wheezing. Cardiovascular: No chest pain, no lower extremity edema. No palpitations. No paroxysmal nocturnal dyspnea. No orthopnea. No lightheadedness or dizziness. No syncopal episodes. Abdominal: No abdominal pain. No nausea, vomiting. No diarrhea. No constipation. No bloody or tarry stools. Genitourinary: No dysuria.. No urinary retention. Musculoskeletal: No myalgias. No muscle weakness, no frequent falls. No back pain. No neck pain. Integumentary: No wounds. No rash. No unusual bruising. Neurologic: No aphasia. No facial droop. No change in mentation. No head injury. No headache. Physical examination: Gen: This is a morbidly obese 57-year-old female resting in bed and appears to be comfortable and in no acute distress. VS: reviewed HEENT: Head is atraumatic, normocephalic. Pupils equal, round. Sclerae is anicteric. NECK: Supple. No JVD. . LUNGS: Clear to auscultation. No wheezes or rhonchi. No intercostal retractions. HEART: Regular rate and rhythm. Systolic murmur. ABDOMEN: Soft No tenderness. EXTREMITIES: No pedal edema. No calf tenderness. NEUROLOGICAL: Patient is awake, alert and oriented x3. Assessment: Atypical chest pain, acute coronary syndrome ruled out Hyperlipidemia History of gastric bypass Remote history of tobacco use Plan: Obtain stress echocardiogram Obtain 2-D echocardiogram and Doppler study to assess cardiac structure and function If stress test and echocardiogram are unremarkable, patient is cleared for discharge home. Thank you kindly for this consultation. Nurse practitioner note has been reviewed, I agree with documented findings and plan of care. Patient was seen and examined. Past Medical History Past Medical History: Fibromyalgia, GERD/Reflux, Neurologic Disorder, Pneumonia, Syncope Additional Past Medical History / Comment(s): Epilepsy- A CHILD-LAST SEIZURE AT AGE 13, "borderline cholesterol-no tx" History of Any Multi-Drug Resistant Organisms: None Reported Past Surgical History: Bariatric Surgery, Section, Cholecystectomy, Hysterectomy, Tonsillectomy Additional Past Surgical History / Comment(s): Lap band insertion and removal followed by a gastric bypass, abdominoplasty Past Anesthesia/Blood Transfusion Reactions: Motion Sickness, Postoperative Nausea & Vomiting (PONV) Additional Past Anesthesia/Blood Transfusion Reaction / Comment(s): CLAUSTROPHOBIA, motion sickness as child, no PONV in a long time Past Psychological History: Anxiety Smoking Status: Former smoker Past Alcohol Use History: Occasional Past Drug Use History: None Reported - Past Family History Father Family Medical History: Cancer Additional Family Medical History / Comment(s): prostate CANCER Mother Family Medical History: Deep Vein Thrombosis (DVT), Pulmonary Embolus Additional Family Medical History / Comment(s): . Medications and Allergies Home Medications Medication Instructions Recorded Confirmed Type Atorvastatin [Lipitor] 20 mg PO DAILY 01/13/21 06/06/23 History DULoxetine HCL [Cymbalta] 30 mg PO BID 06/06/23 06/06/23 History Multivitamins, Thera [Multivitamin 1 tab PO DAILY 06/06/23 06/06/23 History (formulary)] Allergies Allergy/AdvReac Type Severity Reaction Status Date / Time codeine Allergy Severe Anaphylaxis Verified 06/06/23 11:06 iodine Allergy Severe Rash/Hives Verified 06/06/23 11:06 povidone-iodine Allergy Rash/Hives Verified 06/06/23 11:06 [From Betadine] soap [From Betadine] Allergy Rash/Hives Verified 06/06/23 11:06 Physical Exam Vitals: Vital Signs Temp Pulse Pulse Resp BP BP Pulse Ox 06/07/23 02:00 97.8 F 74 15 125/77 98 06/06/23 21:15 97.9 F 71 15 113/59 98 06/06/23 19:33 98 F 71 17 144/85 98 06/06/23 18:23 88 18 145/84 100 06/06/23 17:11 86 06/06/23 15:45 82 18 135/76 99 06/06/23 12:57 91 20 138/78 98 06/06/23 10:56 128 H 06/06/23 09:26 98.6 F 120 H 18 135/83 100 Intake and Output 06/06/23 06/07/23 06/07/23 22:59 06:59 14:59 Other: # Voids 1 3 Weight 117.934 kg Results 06/06/23 10:42 06/06/23 10:42 Cardiac Enzymes 06/06/23 06/06/23 06/06/23 Range/Units 10:42 10:42 21:40 AST 26 (14-36) U/L Troponin I <0.012 <0.012 (0.000-0.034) ng/mL 06/06/23 Range/Units 23:35 AST (14-36) U/L Troponin I <0.012 (0.000-0.034) ng/mL Coagulation 06/06/23 Range/Units 10:42 PT 9.5 L (10.0-12.5) sec APTT 23.1 (22.0-30.0) sec CBC 06/06/23 Range/Units 10:42 WBC 8.3 (3.8-10.6) k/uL RBC 4.32 (3.80-5.40) m/uL Hgb 13.3 (11.4-16.0) gm/dL Hct 40.3 (34.0-46.0) % Plt Count 273 (150-450) k/uL Comprehensive Metabolic Panel 06/06/23 Range/Units 10:42 Sodium 139 (137-145) mmol/L Potassium 4.4 (3.5-5.1) mmol/L Chloride 106 (98-107) mmol/L Carbon Dioxide 21 L (22-30) mmol/L BUN 15 (7-17) mg/dL Creatinine 0.58 (0.52-1.04) mg/dL Glucose 110 H (74-99) mg/dL Calcium 9.5 (8.4-10.2) mg/dL AST 26 (14-36) U/L ALT 19 (4-34) U/L Alkaline Phosphatase 165 H (38-126) U/L Total Protein 6.9 (6.3-8.2) g/dL Albumin 4.3 (3.5-5.0) g/dL Current Medications Generic Name Dose Route Start Last Admin Trade Name Freq PRN Reason Stop Dose Admin Acetaminophen 650 mg 06/06/23 18:13 06/06/23 18:21 Acetaminophen Tab 325 Mg Tab PO 650 mg Q4HR PRN Administration Fever and/ or Pain Aspirin 81 mg 06/07/23 09:00 Aspirin 81 Mg PO DAILY [facility] Atorvastatin Calcium 20 mg 06/07/23 09:00 Atorvastatin 20 Mg Tab PO DAILY [facility] Duloxetine HCl 30 mg 06/06/23 21:00 06/06/23 21:55 Duloxetine Hcl 30 Mg Capsule. PO 30 mg BID KAYLA Administration Heparin Sodium (Porcine) 5,000 unit 06/06/23 16:00 06/06/23 23:12 Heparin Sodium,Porcine 5,000 Unit/Ml 1 Ml Vial SQ 5,000 unit Q8HR KAYLA Administration Multivitamins 1 each 06/07/23 09:00 Multivitamins, Thera 1 Each Tab PO DAILY [facility] Naloxone HCl 0.2 mg 06/06/23 13:59 Naloxone 0.4 Mg/Ml 1 Ml Vial IV Q2M PRN Opioid Reversal Nitroglycerin 0.4 mg 06/06/23 18:13 06/06/23 18:22 Nitroglycerin Sl Tabs 0.4 Mg Tab SUBLINGUAL 0.4 mg Q5M PRN Administration Chest Pain Nitroglycerin 1 inch 06/07/23 00:00 06/07/23 01:04 Nitroglycerin Oint 1 Inch/Gm Packet TOPICAL Not Given Q8HR KAYLA Pantoprazole Sodium 40 mg 06/06/23 16:00 06/06/23 17:05 Pantoprazole 40 Mg/10 Ml Vial IVP 40 mg DAILY KAYLA Administration Intake and Output 06/06/23 06/07/23 06/07/23 22:59 06:59 14:59 Other: # Voids 1 3 Weight 117.934 kg 06/06/23 10:42 06/06/23 10:42
[2023-06-07 11:05] LABS: Basophils # (A) 0.03 X 10*3/uL (0.00-0.10); Basophils % (A) 0.5 %; Eosinophils # (A) 0.06 X 10*3/uL (0.04-0.35); Eosinophils % (A) 0.9 %; HCT 38.8 % (37.2-46.3); HGB 12.4 d/dL (12.0-15.0); Lymphocytes # (A) 1.85 X 10*3/uL (0.90-5.00); Lymphocytes % (A) 28.8 %; MCH 29.7 pg (27.0-32.0); Mean Platelet Volume 11.1 FL (9.5-12.2); Monocytes % (A) 6.2 %; NRBC Per 100 WBC 0 X 10*3/uL (0.00-0.01); Neutrophils # (A) 4.05 X 10*3/uL (1.80-7.70); Neutrophils % (A) 63.1 %; Platelet Count 286 X 10*3/uL (140-440); RBC 4.17 X 10*6/uL (4.10-5.20); RDW 13.8 % (11.5-14.5); WBC 6.42 X 10*3/uL (4.50-10.00)
[2023-06-07 11:18] LABS: BUN/Creat Ratio 18.14 Ratio (12.00-20.00); Blood Urea Nitrogen 12.7 mg/dL (9.0-27.0); Calcium 9.1 mg/dL (8.7-10.3); Carbon Dioxide 24.8 mmol/L (21.6-31.8); Chloride 106 mmol/L (96-109); Chol/HDL Ratio 2.66 Ratio; Glucose 91 mg/dL (70-110); LDL Cholesterol,Calculated 56.6 mg/dL (0.0-131.0); Sodium 143 mmol/L (135-145)
[2023-06-07] MEDS: DULoxetine HCL 30 MG CAPSULE.DR PO SCH (11:55)
[2023-06-07] MEDS: HEPARIN SODIUM,PORCINE 5,000 UNIT/ML 1 ML VIAL SQ SCH (11:56)
[2023-06-07] MEDS: PANTOPRAZOLE 40 MG/10 ML VIAL IVP SCH (11:56)
--- NOTE | 2023-06-07 12:37 | CA ---
Transthoracic Echo Report Name: Carin James Age: 57 Gender: F : 1965 Exam Date: 06/07/2023 09:58 Exam Location: [facility] Ht (in): 65 Wt (lb): 260 Ordering Physician: John Conklin MD Attending/Referring Phys: Fixed Route Operator Torie Isbell RDCS Procedure CPT: Indications: Chest Pain Cardiac Hx: Technical Quality: Good Contrast 1: Total Dose (mL): Contrast 2: Total Dose (mL): MEASUREMENTS (Male / Female) Normal Values 2D ECHO LV Diastolic Diameter PLAX 4.1 cm 4.2 - 5.9 / 3.9 - 5.3 cm LV Systolic Diameter PLAX 2.7 cm IVS Diastolic Thickness 1.2 cm 0.6 - 1.0 / 0.6 - 0.9 cm LVPW Diastolic Thickness 1.1 cm 0.6 - 1.0 / 0.6 - 0.9 cm LV Relative Wall Thickness 0.6 RV Internal Dim ED PLAX 3.3 cm LA Systolic Diameter LX 3.3 cm 3.0 - 4.0 / 2.7 - 3.8 cm LV Diastolic Volume MOD BP 71.6 cm??? 67 - 155 / 56 - 104 cm??? LV Systolic Volume MOD BP 30.9 cm??? 22 - 58 / 19 - 49 cm??? LV Ejection Fraction MOD BP 56.8 % >= 55 % LV Cardiac Index MOD BP 1651.8 cm???/min???m??? LV Diastolic Volume MOD 4C 66.6 cm??? LV Systolic Volume MOD 4C 32.6 cm??? LV Ejection Fraction MOD 4C 51.0 % LV Cardiac Index MOD 4C 1378.9 cm???/min???m??? LV Diastolic Length 4C 7.9 cm LV Systolic Length 4C 7.1 cm LV Diastolic Volume MOD 2C 70.1 cm??? LV Systolic Volume MOD 2C 28.8 cm??? LV Ejection Fraction MOD 2C 58.9 % LV Cardiac Index MOD 2C 1677.2 cm???/min???m??? LV Diastolic Length 2C 7.1 cm LV Systolic Length 2C 6.7 cm LA Volume 59.0 cm??? 18 - 58 / 22 - 52 cm??? LA Volume Index 24.7 cm???/m??? 16 - 28 cm???/m??? M-MODE Aortic Root Diameter MM 3.4 cm MV E Point Septal Separation 0.9 cm AV Cusp Separation MM 1.9 cm DOPPLER AV Peak Velocity 110.7 cm/s AV Peak Gradient 4.9 mmHg MV Area PHT 2.6 cm??? Mitral E Point Velocity 72.3 cm/s Mitral A Point Velocity 95.5 cm/s Mitral E to A Ratio 0.8 MV Deceleration Time 287.9 ms MV E' Velocity 9.0 cm/s Mitral E to MV E' Ratio 8.1 TR Peak Velocity 210.5 cm/s TR Peak Gradient 17.7 mmHg Right Ventricular Systolic Press 22.4 mmHg FINDINGS Left Ventricle Left ventricular ejection fraction is estimated at 55-60 %. Left ventricular cavity size normal. Normal left ventricular wall motion. Mildly increased left ventricular wall thickness. Normal left ventricular diastolic filling pattern. Right Ventricle Mild right ventricular dilatation. Right ventricular systolic pressure within normal limits. Right Atrium Normal right atrial size. Left Atrium Mildly increased left atrial volume. Mitral Valve Structurally normal mitral valve. Trace mitral regurgitation. Aortic Valve Trileaflet aortic valve. No aortic valve stenosis or regurgitation. Tricuspid Valve Structurally normal tricuspid valve. Mild tricuspid regurgitation. Pulmonic Valve Structurally normal pulmonic valve. No pulmonic regurgitation. Pericardium No pericardial effusion. Aorta Normal size aortic root and proximal ascending aorta. CONCLUSIONS 1. Normal left ventricular size and systolic function 2. Trace mitral with mild tricuspid regurgitation Previewed by: Dr. Elysia Atwood MD (Electronically Signed) Final Date: 07 June 2023 12:36
--- NOTE | 2023-06-07 12:41 | P.PN ---
Subjective Progress Note Date: 06/07/23 Patient is a 57-year-old female with a past medical history of Kalyn en y, lap band with removal and lysis of adhesions, cholecystectomy and laparoscopic lysis of additions in June 2022 and also gastro delusional ulcer with chronic bleed presents ER with complaints of chest pain. Patient states that she woke up this morning and felt dizzy and nauseated. She got up and getting ready to have breakfast and started having chest pain mainly in the left retrosternal region stabbing pain rating to the left arm and to the back. Pain was 7 out of 10 in severity and felt like heart racing or fast. Patient has been having constant since then. Patient was given Dilaudid IV in the ER which seem to impr ove her pain. No complaints of shortness of breath. Otherwise denies any complaints of cough or sputum production. Denies any recent illnesses. No leg swelling. Denies any hematemesis or melena. She did have an episode of diarrhea yesterday which is not unusual for her. Patient states that she had cardiac catheterization but no stent was placed. Chest x-ray showed no acute process. EKG showed sinus tachycardia with low QRS voltage in precordial leads. Laboratory data showed WBC 8.3 hemoglobin 13.3 and platelets 273 Sodium 139 potassium 4.4 chloride 106 bicarb is 21 BUN 15 and creatinine 0.58, blood sugar 110 and magnesium 2.1, AST 26 ALT 19 alk phos 165 and troponin x1 negative. D-dimer 0.27, lipase level is 92. 11/2. Patient seen and examined. Denies any episodes of chest pain. Patient came back from stress test, results pending. 2-D echo done showed normal LV size and function, trace mitral and tricuspid regurg REVIEW OF SYSTEMS: CONSTITUTIONAL: No fever, no malaise,. CARDIOVASCULAR: No chest pain, no palpitations, no syncope. PULMONARY: No shortness of breath, no cough, GASTROINTESTINAL: No diarrhea, no nausea, no vomiting, no abdominal pain. NEUROLOGICAL: No headaches, no weakness, PHYSICAL EXAMINATION: GENERAL: The patient is alert and oriented x3, not in any acute distress. Well developed, well nourished. HEENT: Pupils are round and equally reacting to light. EOMI. No scleral icterus. No conjunctival pallor. Normocephalic, atraumatic. No pharyngeal erythema. No thyromegaly. CARDIOVASCULAR: S1 and S2 present. No murmurs, rubs, or gallops. PULMONARY: Chest is clear to auscultation, no wheezing or crackles. ABDOMEN: Soft, nontender, nondistended, normoactive bowel sounds. No palpable organomegaly. MUSCULOSKELETAL: No joint swelling or deformity. EXTREMITIES: No cyanosis, clubbing, or pedal edema. NEUROLOGICAL: Gross neurological examination did not reveal any focal deficits. SKIN: No rashes. Assessment and plan Monitor vital signs Monitor CBC Monitor CMP Continue telemetry monitoring stress test, results pending. 2-D echo done showed normal LV size and function, trace mitral and tricuspid regurg Continue home meds Cardiology following Labs and medication were reviewed.. Continue same treatment. Continue with symptomatic treatment. Resume home medication. Monitor labs and vitals. DVT and GI prophylaxis. Further recommendations as per clinical course of the patient Dictation was produced using [employer] dictation software. please excuse any grammatical, word or spelling errors. Objective - Vital Signs Vital signs: Vital Signs Temp 98.2 F 06/07/23 07:15 Pulse 72 06/07/23 08:00 Resp 19 06/07/23 08:00 BP 115/72 06/07/23 07:15 Pulse Ox 98 06/07/23 07:15 FiO2 Intake & Output 06/06/23 06/07/23 06/07/23 18:59 06:59 18:59 Weight 117.934 kg 117.934 kg Other: # Voids 3 - Labs CBC & Chem 7: 06/07/23 05:53 06/07/23 05:53 Labs: Abnormal Lab Results - Last 24 Hours (Table) 06/07/23 Range/Units 05:53 Anion Gap 12.20 H (4.00-12.00) mmol/L C-Reactive Protein 2.80 H (0.00-0.80) mg/dL Triglycerides 201.00 H (0.00-149.00) mg/dL VLDL Cholesterol, Calc 40.20 H (5.00-40.00) mg/dL
--- NOTE | 2023-06-07 12:53 | CA ---
Stress Echo Report Carin James Age: 57 Gender: F : 1965 Exam Date: 06/07/2023 09:35 Exam Location: [facility] Ht (in): 65 Wt (lb): 260 Ordering Physician: Tashia Odell Referring Physician: [id number] Block Stacker: Torie Isbell RDCS Technologist Procedure CPT: Indication: CP ICD-9 Codes: Rhythm: Patient History: CP, AMAYA, CHOL, TOB (QUIT 20 YRS AGO), CATH Cardiac Medications: SEE CHART Medications in past 24 hours: Contrast: Stress Results Protocol: [place] Total dose(mL): Exercise Duration (min:sec): 6:[address] Depression (mm): Angina Score: Mcgee Score: METS: 7.1 Resting HR: 67 Resting BP: 114 / 64 Peak HR: 152 Peak BP: 227 / 69 Max Predicted HR: 164 93 % Max Predicted HR Target HR: 139 Double Product: [id number] Stress Summary: The patient's target heart rate was achieved BP Response: Abnormal increase in BP during/after stress Reason for Termination: Reached target heart rate or work-load Cardiac Symptoms: ECG Analysis Resting ECG: Normal sinus rhythm, normal ECG Stress ECG: No abnormal ST/T wave changes with exercise Arrhythmia: Occasional PVCs Echo Analysis Resting Echo: Normal resting echocardiogram. Peak Echo Analysis: Normal wall thickening and motion MEASUREMENTS (Male/Female) Normal Values CONCLUSIONS 1. Average exercise tolerance with normal electrocardiographic response to exercise 2. Normal stress echocardiogram with no evidence of stress induced ischemia Dr. Elysia Atwood MD (Electronically Signed) Final Date: 07 June 2023 12:52
[2023-06-07 15:22] VITALS: BP 128/83; PULSE 88; RESP 18; TEMP 98.3
--- NOTE | 2023-06-08 09:30 | P.DS ---
Providers Date of admission: 06/06/23 13:59 Expected date of discharge: 06/08/23 Attending physician: John Conklin Consults: 06/06/23 13:59 Consult Physician Urgent Consulting Provider: [facility] Consult Reason/Comments: acute chest pain Do you want consulting provider notified?: Yes Primary care physician: Stated None Hospital Course: Discharge diagnoses; Chest pain. History of cardiac catheterization. No PCI History of gastric bypass surgery. Status post lysis of adhesion during admission in June 2022 Prior history of lap band insertion and removal Fibromyalgia Anxiety Prior history of smoking Morbid obesity with BMI 43.3 Hospital course; Patient is a 57-year-old female with a past medical history of Kalyn en y, lap band with removal and lysis of adhesions, cholecystectomy and laparoscopic lysis of additions in June 2022 and also gastro delusional ulcer with chronic bleed presents ER with complaints of chest pain. Patient states that she woke up this morning and felt dizzy and nauseated. She got up and getting ready to have breakfast and started having chest pain mainly in the left retrosternal region stabbing pain rating to the left arm and to the back. Pain was 7 out of 10 in severity and felt like heart racing or fast. Patient has been having constant since then. Patient was given Dilaudid IV in the ER which seem to improve her pain. No complaints of shortness of breath. Otherwise denies any complaints of cough or sputum production. Denies any recent illnesses. No leg swelling. Denies any hematemesis or melena. She did have an episode of diarrhea yesterday which is not unusual for her. Patient states that she had cardiac catheterization but no stent was placed. Chest x-ray showed no acute process. EKG showed sinus tachycardia with low QRS voltage in precordial leads. Laboratory data showed WBC 8.3 hemoglobin 13.3 and platelets 273 Sodium 139 potassium 4.4 chloride 106 bicarb is 21 BUN 15 and creatinine 0.58, blood sugar 110 and magnesium 2.1, AST 26 ALT 19 alk phos 165 and troponin x1 negative. D-dimer 0.27, lipase level is 92. 11/2. Patient seen and examined. Denies any episodes of chest pain. Patient came back from stress test, results pending. 2-D echo done showed normal LV size and function, trace mitral and tricuspid regurg. Stress test was also negative for any ischemia. Cardiology cleared the patient for discharge PHYSICAL EXAMINATION: GENERAL: The patient is alert and oriented x3, not in any acute distress. Well developed, well nourished. HEENT: Pupils are round and equally reacting to light. EOMI. No scleral icterus. No conjunctival pallor. Normocephalic, atraumatic. No pharyngeal erythema. No thyromegaly. CARDIOVASCULAR: S1 and S2 present. No murmurs, rubs, or gallops. PULMONARY: Chest is clear to auscultation, no wheezing or crackles. ABDOMEN: Soft, nontender, nondistended, normoactive bowel sounds. No palpable organomegaly. MUSCULOSKELETAL: No joint swelling or deformity. EXTREMITIES: No cyanosis, clubbing, or pedal edema. NEUROLOGICAL: Gross neurological examination did not reveal any focal deficits. SKIN: No rashes. Dictation was produced using [employer] dictation software. please excuse any grammatical, word or spelling errors. Patient Condition at Discharge: Stable Plan - Discharge Summary New Discharge Prescriptions: New Aspirin 81 mg PO DAILY #30 tab Continue Atorvastatin [Lipitor] 20 mg PO DAILY Multivitamins, Thera [Multivitamin (formulary)] 1 tab PO DAILY DULoxetine HCL [Cymbalta] 30 mg PO BID Discharge Medication List Atorvastatin [Lipitor] 20 mg PO DAILY 01/13/21 [History] DULoxetine HCL [Cymbalta] 30 mg PO BID 06/06/23 [History] Multivitamins, Thera [Multivitamin (formulary)] 1 tab PO DAILY 06/06/23 [ History] Aspirin 81 mg PO DAILY #30 tab 06/07/23 [Rx] Follow up Appointment(s)/Referral(s): None,Stated [Primary Care Provider] - 1-2 days Patient Instructions/Handouts: Chest Pain (DC) Discharge/Stand Alone Forms: Work/School Release / Restrict, PH Area PCPs Discharge Disposition: HOME SELF-CARE
== END 2023-06-07 15:35 | disposition home or self-care (01) ==
LOC: EC 09:24 → 6NMEDSUR 13:59
PROVIDERS: ADMIT Internal Medicine; ATTEND Internal Medicine
DX: R07.9 Chest pain, unspecified (principal); K21.9 Gastro-esophageal reflux disease without esophagitis; E78.00 Pure hypercholesterolemia, unspecified; R11.10 Vomiting, unspecified; T46.3X5A Adverse effect of coronary vasodilators, initial encounter; I08.1 Rheumatic disorders of both mitral and tricuspid valves; M79.7 Fibromyalgia; R00.0 Tachycardia, unspecified; R19.7 Diarrhea, unspecified; F41.9 Anxiety disorder, unspecified; F40.240 Claustrophobia; E66.01 Morbid (severe) obesity due to excess calories; Z68.41 Body mass index [BMI] 40.0-44.9, adult; Z79.899 Other long term (current) drug therapy; Z88.5 Allergy status to narcotic agent; Z91.048 Other nonmedicinal substance allergy status; Z98.84 Bariatric surgery status; Z86.69 Personal history of other diseases of the nervous system and sense organs; Z87.01 Personal history of pneumonia (recurrent); Z90.49 Acquired absence of other specified parts of digestive tract; Z87.11 Personal history of peptic ulcer disease; Z98.891 History of uterine scar from previous surgery; Z90.710 Acquired absence of both cervix and uterus; Z87.891 Personal history of nicotine dependence; Z98.890 Other specified postprocedural states; Z80.42 Family history of malignant neoplasm of prostate; Z82.49 Family history of ischemic heart disease and other diseases of the circulatory system
CPT/HCPCS: 96376; 96372 ×3; 96374; 96375; 99285; 36415; 93005; 93306; 93351; 85379; 80061; 80053; 80048; 83690; 83735; 84484; 85025 ×2; 85610; 85730; 86140; 71046; 74176; G0378 ×2; J1644 ×2; J1170; C9113 ×2

== ENCOUNTER 2023-07-05 12:56 | Inpatient (IN) | payer BC ==
--- NOTE | 2023-07-05 13:42 | ED ---
Abdominal Pain HPI - General Source: patient, RN notes reviewed Mode of arrival: ambulatory Limitations: no limitations <Jaiden Novoa - Last Filed: 07/05/23 13:40> <Farhat Hancock - Last Filed: 07/05/23 17:08> - General Chief Complaint: Abdominal Pain Stated Complaint: abd pain bowl pains Time Seen by Provider: 07/05/23 13:40 - History of Present Illness Initial Comments: 57-year-old female presents emergency Department with chief complaint of abdominal pain. Patient states she had her initial surgery 7 years ago she had surgery last June because her pouch twisted. Patient states that her surgeon is Dr. Ashby. Patient states it feels exactly the same she has nausea vomiting not passing any stool. (Jaiden Novoa) 57-year-old female presents to the ED with a chief complaint of abdominal pain. Patient states she had bariatric surgery performed by Dr. Trimble. Notes prior complications of that and states that in the past her "pouch became twisted". Last night, patient states that she starts x-rays pain in the left upper abdomen which has increased in severity since onset. This morning, states that she started to become nauseous and vomits prompting presentation to the ED for further evaluation. No blood in the stool or emesis. Last bowel movement was yesterday however since then patient states that she has been unable to pass gas and has not had a bowel movement yesterday. No chest pain or shortness breath. No urinary complaints. No other complaints. (Farhat Hancock) - Related Data Home Medications Medication Instructions Recorded Confirmed DULoxetine HCL [Cymbalta] 30 mg PO BID 06/06/23 06/06/23 Multivitamins, Thera [Multivitamin 1 tab PO DAILY 06/06/23 06/06/23 (formulary)] Allergies Allergy/AdvReac Type Severity Reaction Status Date / Time codeine Allergy Severe Anaphylaxis Verified 07/05/23 17:04 iodine Allergy Severe Rash/Hives Verified 07/05/23 17:04 povidone-iodine Allergy Rash/Hives Verified 07/05/23 17:04 [From Betadine] soap [From Betadine] Allergy Rash/Hives Verified 07/05/23 17:04 Review of Systems ROS Other: All systems not noted in ROS Statement are negative. <Jaiden Novoa - Last Filed: 07/05/23 13:40> ROS Other: All systems not noted in ROS Statement are negative. <Farhat Hancock - Last Filed: 07/05/23 17:08> ROS Statement: Those systems with pertinent positive or pertinent negative responses have been documented in the HPI. Past Medical History Past Medical History: Fibromyalgia, GERD/Reflux, Neurologic Disorder, Pneumonia, Syncope Additional Past Medical History / Comment(s): Epilepsy- A CHILD-LAST SEIZURE AT AGE 13, "borderline cholesterol-no tx" History of Any Multi-Drug Resistant Organisms: None Reported Past Surgical History: Bariatric Surgery, Section, Cholecystectomy, Hysterectomy, Tonsillectomy Additional Past Surgical History / Comment(s): Lap band insertion and removal followed by a gastric bypass, abdominoplasty Past Anesthesia/Blood Transfusion Reactions: Motion Sickness, Postoperative Nausea & Vomiting (PONV) Additional Past Anesthesia/Blood Transfusion Reaction / Comment(s): CLAUSTROPHOBIA, motion sickness as child, no PONV in a long time Past Psychological History: Anxiety Smoking Status: Former smoker Past Alcohol Use History: Occasional Past Drug Use History: None Reported - Past Family History Father Family Medical History: Cancer Additional Family Medical History / Comment(s): prostate CANCER Mother Family Medical History: Deep Vein Thrombosis (DVT), Pulmonary Embolus Additional Family Medical History / Comment(s): . <Jaiden Novoa - Last Filed: 07/05/23 13:40> General Exam Limitations: no limitations <Jaiden Novoa - Last Filed: 07/05/23 13:40> General appearance: alert Eye exam: Present: normal appearance Neck exam: Present: normal inspection Respiratory exam: Present: normal lung sounds bilaterally Cardiovascular Exam: Present: regular rate, normal rhythm GI/Abdominal exam: Present: soft (Tenderness to palpation of the left upper abdomen with guarding.) Neurological exam: Present: alert, oriented X3 Skin exam: Present: warm, dry <Farhat Hancock - Last Filed: 07/05/23 17:08> - General Exam Comments Initial Comments: Visual Physical Exam Vital signs reviewed General: Well-appearing, nontoxic, no acute distress. Head: Normocephalic, atraumatic Eyes: PERRLA, EOMI ENT: Airway patent Chest: Nonlabored breathing Skin: No visual rash, normal skin tone Neuro: Alert and oriented 3 Musculoskeletal: No gross abnormalities (Jaiden Novoa) Course Vital Signs 07/05/23 07/05/23 07/05/23 13:06 15:54 17:04 Temperature 97.9 F 98.8 F 97.9 F Pulse Rate 120 H 93 104 H Respiratory 16 20 19 Rate Blood Pressure 139/70 136/84 124/80 O2 Sat by Pulse 100 99 98 Oximetry Medical Decision Making <Jaiden Novoa - Last Filed: 07/05/23 13:40> - Lab Data Result diagrams: 07/05/23 15:28 07/05/23 15:28 <Farhat Hancock - Last Filed: 07/05/23 17:08> - Medical Decision Making I completed the quick note portion of this chart signed Jaiden Novoa PA-C (Jaiden Novoa) Was pt. sent in by a medical professional or institution ([facility], [facility], urgent care, hospital, or [facility]...) When possible be specific @ -No Did you speak to anyone other than the patient for history (EMS, parent, family, police, friend...)? What history was obtained from this source @ -No Did you review nursing and triage notes (agree or disagree)? Why? @ -I reviewed and agree with nursing and triage notes Were old charts reviewed (outside hosp., previous admission, EMS record, old EKG, old radiological studies, urgent care reports/EKG's, [facility] records)? Report findings @ -No old charts were reviewed Differential Diagnosis (chest pain, altered mental status, abdominal pain women, abdominal pain men, vaginal bleeding, weakness, fever, dyspnea, syncope, headache, dizziness, GI bleed, back pain, seizure, CVA, palpatations, mental health, musculoskeletal)? @ -Differential Abdominal Pain Women: Appendicitis, Cholecystitis, diverticulosis, ischemic bowel, pancreatitis, hepatitis, UTI, gastroenteritis, AAA, incarcerated hernia, bowel obstruction, constipation, inflammatory bowel, hepatitis, peptic ulcer disease, splenic infarction, perforated viscus, vulvitis, ovarian torsion, PID, kidney stone, placenta abruption, this is not meant to be an all-inclusive list EKG interpreted by me (3pts min.). @ -As above X-rays interpreted by me (1pt min.). @ -None done CT interpreted by me (1pt min.). @ -CT abdomen and pelvis interpreted by me showed no acute finding. U/S interpreted by me (1pt. min.). @ -None done What testing was considered but not performed or refused? (CT, X-rays, U/S, labs)? Why? @ -None What meds were considered but not given or refused? Why? @ -None Did you discuss the management of the patient with other professionals (professionals i.e. DrMarilou, PA, [facility], lab, RT, psych nurse, social worker masters, renewable energy engineer, teacher, workers' compensation hearings officer, residential case manager)? Give summary @ -Case discussed with Dr. Ashby, who at this time recommends admission to herself with consult to medicine for observation. Was smoking cessation discussed for >3mins.? @ -No Was critical care preformed (if so, how long)? @ -No Were there social determinants of health that impacted care today? How? (Homelessness, low income, unemployed, alcoholism, drug addiction, transportation, low edu. Level, literacy, decrease access to med. care, residential, rehab)? @ -No Was there de-escalation of care discussed even if they declined (Discuss DNR or withdrawal of care, Hospice)? DNR status @ -No What co-morbidities impacted this encounter? (DM, HTN, Smoking, COPD, CAD, Cancer, CVA, ARF, Chemo, Hep., AIDS, mental health diagnosis, sleep apnea, morbid obesity)? @ -None Was patient admitted / discharged? Hospital course, mention meds given and route, prescriptions, significant lab abnormalities, going to OR and other pertinent info. @ -Admission 57-year-old female with history of prior bariatric surgery and stenting to the ED with complaints of left upper quadrant pain over the last few days and nausea and vomiting today. Laboratory studies reviewed and lab studies including CBC, CMP, UA largely unremarkable. CT showed no acute findings. After discussion with Dr. Ashby, patient will be to observation for further monitoring. Discussed plan of care with patient who is in agreement. Undiagnosed new problem with uncertain prognosis? @ -No Drug Therapy requiring intensive monitoring for toxicity (Heparin, Nitro, Insulin, Cardizem)? @ -No Were any procedures done? @ -No Diagnosis/symptom? @ -Abdominal pain Acute, or Chronic, or Acute on Chronic? @ -Acute Uncomplicated (without systemic symptoms) or Complicated (systemic symptoms)? @ -Uncomplicated Side effects of treatment? @ -No Exacerbation, Progression, or Severe Exacerbation? @ -No Poses a threat to life or bodily function? How? (Chest pain, USA, ME, pneumonia, PE, COPD, DKA, ARF, appy, cholecystitis, CVA, Diverticulitis, Homicidal, Suicidal, threat to staff... and all critical care pts) @ -No (Farhat Hancock) - Lab Data Lab Results 07/05/23 07/05/23 07/05/23 Range/Units 15:28 15:28 15:28 WBC 9.4 (3.8-10.6) k/uL RBC 4.38 (3.80-5.40) m/uL Hgb 13.2 (11.4-16.0) gm/dL Hct 39.9 (34.0-46.0) % MCV 91.2 (80.0-100.0) fL MCH 30.2 (25.0-35.0) pg MCHC 33.1 (31.0-37.0) g/dL RDW 13.3 (11.5-15.5) % Plt Count 307 (150-450) k/uL MPV 8.4 Neutrophils % 69 % Lymphocytes % 23 % Monocytes % 5 % Eosinophils % 2 % Basophils % 0 % Neutrophils # 6.4 (1.3-7.7) k/uL Lymphocytes # 2.2 (1.0-4.8) k/uL Monocytes # 0.4 (0-1.0) k/uL Eosinophils # 0.2 (0-0.7) k/uL Basophils # 0.0 (0-0.2) k/uL PT 9.7 L (10.0-12.5) sec INR 0.9 (<1.2) APTT 20.7 L (22.0-30.0) sec Sodium 138 (137-145) mmol/L Potassium 4.4 (3.5-5.1) mmol/L Chloride 105 (98-107) mmol/L Carbon Dioxide 22 (22-30) mmol/L Anion Gap 11 mmol/L BUN 18 H (7-17) mg/dL Creatinine 0.65 (0.52-1.04) mg/dL Est GFR (CKD-EPI)AfAm >90 (>60 ml/min/1.73 sqM) Est GFR (CKD-EPI)NonAf >90 (>60 ml/min/1.73 sqM) Glucose 108 H (74-99) mg/dL Plasma Lactic Acid Jamil (0.7-2.0) mmol/L Calcium 9.4 (8.4-10.2) mg/dL Total Bilirubin 0.5 (0.2-1.3) mg/dL AST 34 (14-36) U/L ALT 19 (4-34) U/L Alkaline Phosphatase 154 H (38-126) U/L Total Protein 7.2 (6.3-8.2) g/dL Albumin 4.3 (3.5-5.0) g/dL Lipase 85 (23-300) U/L 07/05/23 Range/Units 15:28 WBC (3.8-10.6) k/uL RBC (3.80-5.40) m/uL Hgb (11.4-16.0) gm/dL Hct (34.0-46.0) % MCV (80.0-100.0) fL MCH (25.0-35.0) pg MCHC (31.0-37.0) g/dL RDW (11.5-15.5) % Plt Count (150-450) k/uL MPV Neutrophils % % Lymphocytes % % Monocytes % % Eosinophils % % Basophils % % Neutrophils # (1.3-7.7) k/uL Lymphocytes # (1.0-4.8) k/uL Monocytes # (0-1.0) k/uL Eosinophils # (0-0.7) k/uL Basophils # (0-0.2) k/uL PT (10.0-12.5) sec INR (<1.2) APTT (22.0-30.0) sec Sodium (137-145) mmol/L Potassium (3.5-5.1) mmol/L Chloride (98-107) mmol/L Carbon Dioxide (22-30) mmol/L Anion Gap mmol/L BUN (7-17) mg/dL Creatinine (0.52-1.04) mg/dL Est GFR (CKD-EPI)AfAm (>60 ml/min/1.73 sqM) Est GFR (CKD-EPI)NonAf (>60 ml/min/1.73 sqM) Glucose (74-99) mg/dL Plasma Lactic Acid Jamil 0.9 (0.7-2.0) mmol/L Calcium (8.4-10.2) mg/dL Total Bilirubin (0.2-1.3) mg/dL AST (14-36) U/L ALT (4-34) U/L Alkaline Phosphatase (38-126) U/L Total Protein (6.3-8.2) g/dL Albumin (3.5-5.0) g/dL Lipase (23-300) U/L Disposition <Jaiden Novoa - Last Filed: 07/05/23 13:40> Time of Disposition: 17:07 <Farhat Hnacock - Last Filed: 07/05/23 17:08> Clinical Impression: Abdominal pain Disposition: ADMITTED IP TO THIS HOSP Referrals: None,Stated [Primary Care Provider] - 1-2 days
[2023-07-05] MEDS ORDERED: FAMOTIDINE 20 MG/2 ML VIAL IV STA (15:32)
[2023-07-05] MEDS ORDERED: diphenhydrAMINE 50 MG/ML 1 ML VIAL IVP STA (15:32)
[2023-07-05] MEDS ORDERED: methylPREDNISolone SOD SUCCI 40 MG/ML 1 ML VIAL IV STA (15:32)
[2023-07-05 15:54] LABS: Basophils % (A) 0 %; Eosinophils # (A) 0.2 k/uL (0-0.7); Eosinophils % (A) 2 %; HCT 39.9 % (34.0-46.0); HGB 13.2 gm/dL (11.4-16.0); Lymphocytes # (A) 2.2 k/uL (1.0-4.8); Lymphocytes % (A) 23 %; MCH 30.2 pg (25.0-35.0); MCHC 33.1 g/dL (31.0-37.0); MCV 91.2 fL (80.0-100.0); Mean Platelet Volume 8.4; Monocytes # (A) 0.4 k/uL (0-1.0); Monocytes % (A) 5 %; Neutrophils # (A) 6.4 k/uL (1.3-7.7); Neutrophils % (A) 69 %; Platelet Count 307 k/uL (150-450); RBC 4.38 m/uL (3.80-5.40); RDW 13.3 % (11.5-15.5); WBC 9.4 k/uL (3.8-10.6)
[2023-07-05 16:08] LABS: ALT 19 U/L (4-34); African American GFR (CKD) >90 (>60 ml/min/1.73 sqM); Albumin 4.3 g/dL (3.5-5.0); Anion Gap 11 mmol/L; Blood Urea Nitrogen 18 mg/dL (7-17); Calcium 9.4 mg/dL (8.4-10.2); Carbon Dioxide 22 mmol/L (22-30); Chloride 105 mmol/L (98-107); Glucose 108 mg/dL (74-99); Lipase 85 U/L (23-300); Non-African American GFR(CKD) >90 (>60 ml/min/1.73 sqM); Sodium 138 mmol/L (137-145); Total Bilirubin 0.5 mg/dL (0.2-1.3); Total Protein 7.2 g/dL (6.3-8.2)
[2023-07-05 16:14] LABS: AST 34 U/L (14-36); Alkaline Phosphatase 154 U/L (38-126); Potassium 4.4 mmol/L (3.5-5.1)
--- NOTE | 2023-07-05 16:21 | CT ---
EXAMINATION: CT ABDOMEN AND PELVIS WITH IV CONTRAST DATE OF EXAMINATION: 07/05/2023. COMPARISON: 06/06/2023.. INDICATION: Left upper quadrant pain. PROCEDURE: Axial CT of the abdomen and pelvis was performed with contrast and sagittal and coronal reformatted images were performed. CT dose lowering techniques were used, to include: automated expos ure control, adjustment for patient size, and/or use of iterative reconstruction. FINDINGS: LOWER CHEST : The visualized lung bases are clear. There are no pleural or pericardial effusions. ABDOMEN: Liver and Biliary system: There is diffuse decreased attenuation of the liver compatible fatty liver infiltration. No suspicious liver lesions are otherwise seen. Adrenal glands: Normal. Kidneys and ureters: Normal. Spleen: Normal. Pancreas: Normal. Gallbladder: Surgically absent. Lymph nodes, Peritoneum and mesentery: There is no mesenteric or retroperitoneal lymphadenopathy. Gastrointestinal tract: There are no dilated loops of bowel or free intraperitoneal air. The appe ndix is normal. Prior gastric bypass surgery is noted. Aorta/IVC: There is mild vascular calcification throughout the abdominal aorta without evidence of aneurysmal dilation or dissection. IVC normal. Abdominal wall: Normal. PELVIS: Fluid: There is no free fluid in the pelvis. Lymph Nodes: There is no pelvic or inguinal lymphadenopathy.. Urinary bladder: Normal. BONES: There are no osseous destructive lesions.. ADDITIONAL SIGNIFICANT FINDINGS: None. IMPRESSION: 1. No acute process within the abdomen or pelvis. 2. Diffuse hepatic steatosis.
[2023-07-05 16:37] LABS: INR 0.9 (<1.2); Prothrombin Time 9.7 sec (10.0-12.5)
[2023-07-05 16:38] LABS: Partial Thromboplastin Time 20.7 sec (22.0-30.0)
[2023-07-05] MEDS ORDERED: NALOXONE 0.4 MG/ML 1 ML VIAL IV PRN (17:08)
[2023-07-05] MEDS: SODIUM CHLORIDE 0.9% 1,000 ML IV SCH (17:55)
[2023-07-05] MEDS: HYDROmorphone 1 MG/ML 1 ML SYRINGE IVP PRN (18:02)
[2023-07-05] MEDS: ONDANSETRON 4 MG/2 ML VIAL IVP PRN (21:00)
[2023-07-05] MEDS: HYDROmorphone 0.5 MG/0.5 ML SYRINGE IVP PRN (21:00)
[2023-07-06] MEDS: HYDROmorphone 0.5 MG/0.5 ML SYRINGE IVP PRN ×4 (00:39→11:26)
[2023-07-06] MEDS: ONDANSETRON 4 MG/2 ML VIAL IVP PRN (05:22)
[2023-07-06] MEDS: DULoxetine HCL 30 MG CAPSULE.DR PO SCH ×2 (08:19→22:19)
[2023-07-06 11:00] LABS: HCT 37.8 % (37.2-46.3); HGB 12.6 g/dL (12.0-15.0); MCH 30.4 pg (27.0-32.0); MCHC 33.3 g/dL (32.0-37.0); MCV 91.3 FL (80.0-97.0); Mean Platelet Volume 11.1 FL (9.5-12.2); NRBC Per 100 WBC 0 X 10*3/uL (0.00-0.01); Platelet Count 278 X 10*3/uL (140-440); RBC 4.14 X 10*6/uL (4.10-5.20); RDW 13.1 % (11.5-14.5); WBC 10.02 X 10*3/uL (4.50-10.00)
[2023-07-06 11:02] LABS: Blood Urea Nitrogen 14.7 mg/dL (9.0-27.0); Calcium 9.5 mg/dL (8.7-10.3); Carbon Dioxide 23.3 mmol/L (21.6-31.8); Chloride 104 mmol/L (96-109); Glucose 114 mg/dL (70-110); Potassium 4.5 mmol/L (3.5-5.5); Sodium 142 mmol/L (135-145)
--- NOTE | 2023-07-06 11:45 | P.GSHP ---
History of Present Illness H&P Date: 07/06/23 CHIEF COMPLAINT: Abdominal pain HISTORY OF PRESENT ILLNESS: This is a 57-year-old female who presented to the hospital with complaints of left upper quadrant abdominal pain with nausea and vomiting 2 days. She denies any hematemesis. She reports spell a couple a day since her last bowel movement. Patient reports feel similar pain and 2 when she had to have the lysis of adhesions in June 2022. Patient has a history of Kalyn-en-Y gastric bypass, pannicular colectomy, , cholecystectomy, hysterectomy, lysis of adhesions. Patient also has a medical history of a gastrojejunal ulcer with chronic bleeding. Patient had computed tomography scan abdomen and pelvis reporting no acute process. Patient denies any fever, chills or sweats. She does complain of feeling bloated. PAST MEDICAL HISTORY: See list. PAST SURGICAL HISTORY: See list. MEDICATIONS: See list. ALLERGIES: See list. SOCIAL HISTORY: No illicit drug use. REVIEW OF SYSTEMS: CONSTITUTIONAL: Denies fever or chills. HEENT: Denies blurred vision, vision changes, or eye pain. Denies hemoptysis ENDOCRINE: Denies heat or cold intolerance. CARDIOVASCULAR: Denies chest pain or pressure. RESPIRATORY: No shortness of breath. GASTROINTESTINAL: Please refer to HPI otherwise unremarkable. NEURO: Denies history of seizures. PSYCH: No depression or suicidal ideation HEMATOLOGIC: Denies bleeding disorders. LYMPHATIC: The patient denies any lumps and bumps around the neck. GENITOURINARY: Denies any blood in urine or increased urinary frequency. MUSCULOSKELETAL: Denies myalgias. Denies joint swelling. Denies decreased range of motion beyond patients baseline. SKIN: Denies pruitis. Denies rash. PHYSICAL EXAM: VITAL SIGNS: Reviewed GENERAL: Well-developed in no acute distress. HEENT: No sclera icterus. Extraocular movements grossly intact. Moist buccal mucosa. Head is atraumatic, normocephalic. Hears conversational speech. No nasal drainage. NECK: Supple without lymphadenopathy. CHEST: Non-labored respirations and equal bilateral excursions. CARDIOVASCULAR: Palpable 2+ radial pulses. ABDOMEN: Soft. Mildly distended. Tenderness to palpation in the left upper quadrant MUSCULOSKELETAL: No clubbing or cyanosis. NEUROLOGIC: No focal or lateralizing signs. Cranial nerves II through XII grossly intact. PSYCH: Appropriate affect. Alert and oriented to person, place and time. SKIN: Well perfused. Good skin turgor. LABORATORY DATA: WBC 10.0 to Hgb 12.6 platelets 278 Sodium 142 potassium 4.5 creatinine 0.7 Lactic acid 0.9 Total bilirubin 0.5 AST 34 ALT 19 alk phos 154 lipase 85 IMAGING: Computed tomography scan abdomen is stated above ASSESSMENT: 1. Left upper quadrant abdominal pain 2. History of gastrojejunal ulcer with bleeding 3. Intussusception 4. History of Kalyn-en-Y gastric bypass PLAN: -Patient scheduled for Robotic lysis of adhesions and intraoperative EGD today with Dr. Ashby -Keep patient nothing by mouth -Continue IV fluids -Continue supportive care Physician Greensman note has been reviewed by physician. Signing provider agrees with the documented findings, assessment, and plan of care. Past Medical History Past Medical History: Fibromyalgia, GERD/Reflux, Neurologic Disorder, Pneumonia, Syncope Additional Past Medical History / Comment(s): Epilepsy- A CHILD-LAST SEIZURE AT AGE 13, "borderline cholesterol-no tx" History of Any Multi-Drug Resistant Organisms: None Reported Past Surgical History: Bariatric Surgery, Section, Cholecystectomy, Hysterectomy, Tonsillectomy Additional Past Surgical History / Comment(s): Lap band insertion and removal followed by a gastric bypass, abdominoplasty Past Anesthesia/Blood Transfusion Reactions: Motion Sickness, Postoperative Nausea & Vomiting (PONV) Additional Past Anesthesia/Blood Transfusion Reaction / Comment(s): CLAUSTROPHOBIA, motion sickness as child, no PONV in a long time Past Psychological History: Anxiety Smoking Status: Former smoker Past Alcohol Use History: Occasional Past Drug Use History: None Reported - Past Family History Father Family Medical History: Cancer Additional Family Medical History / Comment(s): prostate CANCER Mother Family Medical History: Deep Vein Thrombosis (DVT), Pulmonary Embolus Additional Family Medical History / Comment(s): . Medications and Allergies Home Medications Medication Instructions Recorded Confirmed Type DULoxetine HCL [Cymbalta] 30 mg PO BID 06/06/23 07/05/23 History Multivitamins, Thera [Multivitamin 1 tab PO DAILY 06/06/23 07/05/23 History (formulary)] Allergies Allergy/AdvReac Type Severity Reaction Status Date / Time codeine Allergy Severe Anaphylaxis Verified 07/05/23 17:04 iodine Allergy Severe Rash/Hives Verified 07/05/23 17:04 povidone-iodine Allergy Rash/Hives Verified 07/05/23 17:04 [From Betadine] soap [From Betadine] Allergy Rash/Hives Verified 07/05/23 17:04 Surgical - Exam Vital Signs Temp Pulse Resp BP Pulse Ox 97.9 F 120 H 16 139/70 100 07/05/23 13:06 07/05/23 13:06 07/05/23 13:06 07/05/23 13:06 07/05/23 13:06 Results - Labs 07/06/23 06:32 07/06/23 06:32 Abnormal Lab Results - Last 24 Hours (Table) 07/05/23 07/05/23 07/06/23 Range/Units 15:28 15:28 06:32 WBC 10.02 H (4.50-10.00) X 10*3/uL PT 9.7 L (10.0-12.5) sec APTT 20.7 L (22.0-30.0) sec BUN 18 H (7-17) mg/dL Glucose 108 H (74-99) mg/dL Alkaline Phosphatase 154 H (38-126) U/L Diabetes panel 07/05/23 Range/Units 15:28 Sodium 138 (137-145) mmol/L Potassium 4.4 (3.5-5.1) mmol/L Chloride 105 (98-107) mmol/L Carbon Dioxide 22 (22-30) mmol/L BUN 18 H (7-17) mg/dL Creatinine 0.65 (0.52-1.04) mg/dL Glucose 108 H (74-99) mg/dL Calcium 9.4 (8.4-10.2) mg/dL AST 34 (14-36) U/L ALT 19 (4-34) U/L Alkaline Phosphatase 154 H (38-126) U/L Total Protein 7.2 (6.3-8.2) g/dL Albumin 4.3 (3.5-5.0) g/dL Calcium panel 07/05/23 Range/Units 15:28 Calcium 9.4 (8.4-10.2) mg/dL Albumin 4.3 (3.5-5.0) g/dL Pituitary panel 07/05/23 Range/Units 15:28 Sodium 138 (137-145) mmol/L Potassium 4.4 (3.5-5.1) mmol/L Chloride 105 (98-107) mmol/L Carbon Dioxide 22 (22-30) mmol/L BUN 18 H (7-17) mg/dL Creatinine 0.65 (0.52-1.04) mg/dL Glucose 108 H (74-99) mg/dL Calcium 9.4 (8.4-10.2) mg/dL Adrenal panel 07/05/23 Range/Units 15:28 Sodium 138 (137-145) mmol/L Potassium 4.4 (3.5-5.1) mmol/L Chloride 105 (98-107) mmol/L Carbon Dioxide 22 (22-30) mmol/L BUN 18 H (7-17) mg/dL Creatinine 0.65 (0.52-1.04) mg/dL Glucose 108 H (74-99) mg/dL Calcium 9.4 (8.4-10.2) mg/dL Total Bilirubin 0.5 (0.2-1.3) mg/dL AST 34 (14-36) U/L ALT 19 (4-34) U/L Alkaline Phosphatase 154 H (38-126) U/L Total Protein 7.2 (6.3-8.2) g/dL Albumin 4.3 (3.5-5.0) g/dL
--- NOTE | 2023-07-06 12:05 | P.CONS ---
History of Present Illness - Reason for Consult Consult date: 07/06/23 - Chief Complaint Abdominal pain - History of Present Illness * 57-year-old patient with past medical history significant for coronary artery disease, history of gastric bypass surgery, prior history of lab band insertion/removal, fibromyalgia, anxiety, morbid obesity prior history of tobacco use, history of intra-abdominal limitations requiring glasses June 2022 presents to the emergency department with complains of abdominal pain, nausea, vomiting. Patient said symptom onset was one day prior to admission the night before coming in patient had left upper quadrant abdominal pain, this was followed by nausea and vomiting. Patient says she had 1 bowel movement a day prior and no blood was noted, patient did not have a bowel movement since then and has not been able to pass gas. Patient denies associated fever, chills, chest pain, shortness of breath or any other complaints * Workup in ER included a CT abdomen and pelvis which showed diffuse hepatic stenosis, no acute abdomen or pelvis process was noted, no free fluid in pelvis no pelvic or inguinal lymphadenopathy noted * Blood work obtained in ER include hepatology which were WBC of 9.4 hemoglobin 13.2 platelet count of 307 * INR check was 0.9 with PTT of 9.7 * Serum chemistry obtained sodium 138 potassium 4.4 carbon dioxide 20 to be on 18 creatinine 0.65 blood glucose 108 * Plasma lactate of 0.9 * Liver profile obtained showed AST of 34 a LT of 19 total protein of 7.2 albumin 4.3 lipase 85 * Patient admitted under general surgery service with consultation with medicine team for comanagement REVIEW OF SYSTEMS: Nausea, vomiting, abdominal pain, constipation CONSTITUTIONAL: No fever, no malaise, no fatigue. HEENT: No recent visual problems or hearing problems. Denied any sore throat. CARDIOVASCULAR: No chest pain, orthopnea, PND, no palpitations, no syncope. PULMONARY: No shortness of breath, no cough, no hemoptysis. GASTROINTESTINAL:Nausea, vomiting, abdominal pain, constipation NEUROLOGICAL: No headaches, no weakness, no numbness. HEMATOLOGICAL: Denies any bleeding or petechiae. GENITOURINARY: Denies any burning micturition, frequency, or urgency. MUSCULOSKELETAL/RHEUMATOLOGICAL: Denies any joint pain, swelling, or any muscle pain. ENDOCRINE: Denies any polyuria or polydipsia. PHYSICAL EXAMINATION: GENERAL: The patient is alert and oriented x3, obese HEENT: Pupils are round and equally reacting to light. EOMI. No scleral icterus. CARDIOVASCULAR: S1 and S2 present. No murmurs, rubs, or gallops. PULMONARY: Chest is clear to auscultation, no wheezing or crackles. ABDOMEN: Soft, distended, hypoactive bowel sounds, left upper quadrant tenderness no guarding no rigidity MUSCULOSKELETAL: No joint swelling or deformity. EXTREMITIES: No cyanosis, clubbing, or pedal edema. NEUROLOGICAL: Gross neurological examination did not reveal any focal deficits. SKIN: No rashes. Past Medical History Past Medical History: Fibromyalgia, GERD/Reflux, Neurologic Disorder, Pneumonia, Syncope Additional Past Medical History / Comment(s): Epilepsy- A CHILD-LAST SEIZURE AT AGE 13, "borderline cholesterol-no tx" History of Any Multi-Drug Resistant Organisms: None Reported Past Surgical History: Bariatric Surgery, Section, Cholecystectomy, Hysterectomy, Tonsillectomy Additional Past Surgical History / Comment(s): Lap band insertion and removal followed by a gastric bypass, abdominoplasty Past Anesthesia/Blood Transfusion Reactions: Motion Sickness, Postoperative Na usea & Vomiting (PONV) Additional Past Anesthesia/Blood Transfusion Reaction / Comm: CLAUSTROPHOBIA, motion sickness as child, no PONV in a long time Past Psychological History: Anxiety Smoking Status: Former smoker Past Alcohol Use History: Occasional Past Drug Use History: None Reported - Past Family History Father Family Medical History: Cancer Additional Family Medical History / Comment(s): prostate CANCER Mother Family Medical History: Deep Vein Thrombosis (DVT), Pulmonary Embolus Additional Family Medical History / Comment(s): . Medications and Allergies Home Medications Medication Instructions Recorded Confirmed Type DULoxetine HCL [Cymbalta] 30 mg PO BID 06/06/23 07/05/23 History Multivitamins, Thera [Multivitamin 1 tab PO DAILY 06/06/23 07/05/23 History (formulary)] Allergies Allergy/AdvReac Type Severity Reaction Status Date / Time codeine Allergy Severe Anaphylaxis Verified 07/05/23 17:04 iodine Allergy Severe Rash/Hives Verified 07/05/23 17:04 povidone-iodine Allergy Rash/Hives Verified 07/05/23 17:04 [From Betadine] soap [From Betadine] Allergy Rash/Hives Verified 07/05/23 17:04 Physical Exam Vitals: Vital Signs Temp Pulse Resp BP Pulse Ox 12/01/23 08:17 98 F 90 18 113/72 94 L 07/06/23 04:00 97.2 F L 92 16 121/82 96 07/06/23 00:00 98 F 79 15 119/82 94 L 07/05/23 22:34 98.2 F 97 16 109/71 07/05/23 18:00 98.6 F 94 18 124/85 95 07/05/23 17:04 97.9 F 104 H 19 124/80 98 07/05/23 15:54 98.8 F 93 20 136/84 99 07/05/23 13:06 97.9 F 120 H 16 139/70 100 Results CBC & Chem 7: 07/06/23 06:32 07/06/23 06:32 Labs: Abnormal Lab Results - Last 24 Hours (Table) 07/05/23 07/05/23 Range/Units 15:28 15:28 PT 9.7 L (10.0-12.5) sec APTT 20.7 L (22.0-30.0) sec BUN 18 H (7-17) mg/dL Glucose 108 H (74-99) mg/dL Alkaline Phosphatase 154 H (38-126) U/L Assessment and Plan Assessment: Assessment and plan * Acute nausea/vomiting rule out bowel obstruction versus gastritis * History of intra-abdominal surgery/laparoscopic lysis of addition June 2022, cholecystectomy * History of gastric bypass * Hyperlipidemia * History of depression * In regards to recurrent nausea/vomiting, CT abdomen pelvis reviewed, liver profile, lipase within normal limits, general surgery team primary, continue IV fluids, nothing by mouth, serial abdominal exam and imaging as indicated * In regards to history of depression continue Cymbalta * Continue patient on fluid resuscitation, follow-up on serum chemistries * Continue IV Protonix * Status is full code Time with Patient: Greater than 30
[2023-07-06] MEDS: PANTOPRAZOLE 40 MG/10 ML VIAL IVP SCH ×2 (12:15→21:31)
[2023-07-06] MEDS: SODIUM CHLORIDE 0.9% 1,000 ML IV SCH ×3 (13:40→22:06)
[2023-07-06] MEDS ORDERED: DEXAMETHASONE SOD PHOSPHATE 4 MG/ML 1 ML VIAL IV ONE (14:11)
[2023-07-06] MEDS ORDERED: ONDANSETRON 4 MG/2 ML VIAL IVP ONE ×2 (14:11→15:49)
[2023-07-06] MEDS: LACTATED RINGERS 1,000 ML IV SCH (15:47)
[2023-07-06] MEDS ORDERED: DEXAMETHASONE SOD PHOSPHATE 4 MG/ML 1 ML VIAL IVP ONE (15:49)
[2023-07-06] MEDS ORDERED: ceFAZolin 1,000 MG VIAL ONE (17:46)
[2023-07-06] MEDS ORDERED: PHENYLEPHRINE-0.9% NACL SYG 1,000 MCG/10 ML SYRINGE ONE (17:46)
[2023-07-06] MEDS ORDERED: ePHEDrine 50 MG/ML 1 ML VIAL ONE (17:46)
[2023-07-06] MEDS ORDERED: MIDAZOLAM 2 MG/2 ML VIAL ONE (17:46)
[2023-07-06] MEDS ORDERED: ROCURONIUM 10 MG/ML (5 ML VIAL) IV ONE (17:46)
[2023-07-06] MEDS ORDERED: fentaNYL (PF) 50 MCG/ML 2 ML AMP ONE (17:46)
[2023-07-06] MEDS ORDERED: SODIUM CHLORIDE 0.9% 100 ML BAG ONE (17:46)
[2023-07-06] MEDS ORDERED: SUCCINYLCHOLINE CHLORIDE 200 MG/10 ML VIAL IV ONE (17:46)
[2023-07-06] MEDS ORDERED: HYDROmorphone (PF) 1 MG/ML ONE (17:46)
[2023-07-06] MEDS ORDERED: PROPOFOL 10 MG/ML 20 ML VIAL IV ONE (17:46)
[2023-07-06] MEDS ORDERED: LIDOCAINE 1% INJ 10MG/ML (20 ML MDV) ONE (17:46)
[2023-07-06] MEDS ORDERED: SODIUM CHLORIDE 0.9% 50 ML with ceFAZolin 2,000 MG IV ONE ×2 (17:50)
[2023-07-06] MEDS ORDERED: LIDOCAINE 1%-EPI 1:100,000 50 ML VIAL SQ ONE (18:13)
[2023-07-06] MEDS ORDERED: NALOXONE 0.4 MG/ML 1 ML VIAL IV PRN (20:14)
--- NOTE | 2023-07-06 20:16 | P.OP ---
Date of Procedure: 07/06/23 Description of Procedure: At hernia, incarcerated with small bowel intermittent small bowel obstruction, intractable abdominal pain. Extensive lysis of adhesions of 1.5 hours. Upper endoscopy for history of gastric ulcers negative. Severe adhesions of the terminal ileum interloop as well as left upper quadrant and jejunojejunostomy. Closure of large internal hernia defect. Small bowel tethering to the retroperitoneum exacerbating abdominal pain including back pain all lysed. SURGEON: WILLIAN HALL MD PREOPERATIVE DIAGNOSES: 1. Intractable epigastric abdominal pain with left upper quadrant abdominal pain 2. History of internal hernia and intra-abdominal adhesions 3. History of gastric bypass POSTOPERATIVE DIAGNOSES: 1. Internal hernia due with interloop peritoneal adhesions, epigastrium/left upper quadrant 2. Severe interloop adhesions OPERATION: 1. Robotic-assisted da Elizabet Xi laparoscopic with extensive lysis of adhesions over 1.5 hr 2. Intraoperative upper endoscopy ESTIMATED BLOOD LOSS: 20 mL. SPECIMENS REMOVED: None. COMPLICATIONS: None. OPERATIVE FINDINGS: 1. Severe interloop adhesions, left upper quadrant/epigastrium involving jejunojejunostomy, lysed at patient's area of pain 2. Loop adhesions involving distal ileum 3. Severe interloop adhesions left upper quadrant to jejunojejunostomy lysed, patient's area of pain 4. Large jejunojejunostomy internal hernia after lysis of adhesions closed INDICATIONS: The patient is a 57-year-old female who presents severe epigastric left upper quadrant abdominal pain unrelieved with medications and intractable nausea and vomiting over 2-3 days. She has pre-existing history of intra- abdominal adhesions, internal hernia, gastrojejunal ulcers. With her history of gastric bypass, high incidence of internal hernia peritoneal adhesions described. Surgical intervention with diagnostic laparoscopy, lysis of adhesions were described. Informed consent was obtained. Robotic assisted laparoscopic approach was described. Benefits and risks of the procedure including but not limited to bleeding, infection, injury to the small bowel was described. Informed consent was obtained. DESCRIPTION OF PROCEDURE: Patient was brought to the operating room, placed in supine position. After general induction, the abdomen had been prepped and draped in standard sterile fashion. The robotic da Elizabet XI system was primed. After a timeout protocol was performed, the patient had been prepped and draped in standard sterile fashion. The robot was docked along the right lateral abdomen. The patient was repositioned in with right side up. Please note prior to docking of the robot; however, a 5 mm 0 degrees laparoscopic trocar entry was performed along the left upper quadrant. The abdomen was insufflated to 15 mmHg pressure which she tolerated well. Diagnostic laparoscopy was performed. Next, three 8 mm robotic ports were placed along the right lateral abdominal wall. The camera 8-mm port was maintained along mid-lateral abdomen. Please note that the ports were placed at least 10 to 15 cm away from the target anatomy. Instruments including graspers and vessel sealer were interchanged by the dental assistant teacher. I had sat at the console. No evidence of incisional hernia was identified. The rest of the abdomen was unremarkable for small bowel pathology. The small bowel from the bibi limb to distal ileum was inspected. The small bowel was investigated from the terminal ileum to the ligament of Treitz with finding of redundant mesentery with active small bowel volvulus involving the jejunum to the jejunojejunostomy mesenteric defect. Abnormal adhesions to the jejunojejunostomy was identified and divided. The mesentery small bowel volvulus were reduced. Adhesions along the epigastrium linvolving the transverse colon to the bibi limb with an active internal hernia was lysed using vessel sealer. No herniation of bowel was found along the Win defect or jejunojejunostomy mesenteric defect. Adhesion of gastrojejunal anastomosis to the anterior abdominal wall was released. Moderate gaseous distention of sigmoid colon was identified with an active sigmoid volvulus similarly reduced secondary to highly redundant colon. The terminal ileum and cecum was unremarkable. Extensive lysis of adhesions over 1 hr was performed. The small bowel was viable.The robot was undocked. All pneumoperitoneum instruments were evacuated from the abdominal cavity. The incisions were reapproximated using 4-0 Monocryl in an interrupted subcuticular fashion. Please note along the trocar sites, local anesthetic was placed as a field block prior to insertion of all instruments. Exofin was applied to the skin. At the end of the procedure needle, sponge, and instrument count had been verified correct by the surgical lead. The patient was transferred to postanesthesia care unit in stable condition.
[2023-07-06] MEDS ORDERED: LACTATED RINGERS 1,000 ML IV ONE (20:47)
[2023-07-06] MEDS: KETOROLAC 15 MG/ML 1 ML VIAL IVP SCH ×2 (21:24→23:19)
[2023-07-06] MEDS: fentaNYL PCA 500 MCG/50 ML BAG IV SCH (21:24)
[2023-07-06] MEDS: HEPARIN SODIUM,PORCINE 5,000 UNIT/ML 1 ML VIAL SQ SCH (21:31)
[2023-07-06] MEDS: ACETAMINOPHEN IV (For NPO) 1,000 MG in EMPTY BAG 1 BAG IVPB SCH (23:18)
[2023-07-06] MEDS: ONDANSETRON 4 MG/2 ML VIAL IVP SCH (23:18)
[2023-07-07] MEDS: SODIUM CHLORIDE 0.9% 1,000 ML IV SCH ×2 (05:32→22:50)
[2023-07-07] MEDS: ACETAMINOPHEN IV (For NPO) 1,000 MG in EMPTY BAG 1 BAG IVPB SCH ×3 (05:33→17:16)
[2023-07-07] MEDS: KETOROLAC 15 MG/ML 1 ML VIAL IVP SCH ×4 (05:33→23:59)
[2023-07-07] MEDS: ONDANSETRON 4 MG/2 ML VIAL IVP SCH ×4 (05:34→23:58)
[2023-07-07] MEDS ORDERED: HYDROmorphone 0.5 MG/0.5 ML SYRINGE IVP PRN (07:00)
[2023-07-07 09:34] LABS: HCT 35.1 % (37.2-46.3); HGB 11.3 g/dL (12.0-15.0); MCH 29.6 pg (27.0-32.0); MCHC 32.2 g/dL (32.0-37.0); MCV 91.9 FL (80.0-97.0); Mean Platelet Volume 11.1 FL (9.5-12.2); NRBC Per 100 WBC 0 X 10*3/uL (0.00-0.01); Platelet Count 281 X 10*3/uL (140-440); RBC 3.82 X 10*6/uL (4.10-5.20); RDW 13.2 % (11.5-14.5); WBC 12.17 X 10*3/uL (4.50-10.00)
[2023-07-07] MEDS: HYDROmorphone 0.5 MG/0.5 ML SYRINGE IVP PRN (09:48)
[2023-07-07] MEDS: DULoxetine HCL 30 MG CAPSULE.DR PO SCH ×2 (09:49→21:37)
[2023-07-07] MEDS: PANTOPRAZOLE 40 MG/10 ML VIAL IVP SCH ×2 (09:49→21:36)
[2023-07-07] MEDS: HEPARIN SODIUM,PORCINE 5,000 UNIT/ML 1 ML VIAL SQ SCH ×2 (09:51→21:37)
[2023-07-07 09:55] LABS: BUN/Creat Ratio 20.86 Ratio (12.00-20.00); Blood Urea Nitrogen 14.6 mg/dL (9.0-27.0); Chloride 105 mmol/L (96-109); Glucose 104 mg/dL (70-110); Potassium 4.2 mmol/L (3.5-5.5); Sodium 140 mmol/L (135-145)
[2023-07-07 09:56] LABS: Calcium 8.8 mg/dL (8.7-10.3); Carbon Dioxide 24.3 mmol/L (21.6-31.8)
[2023-07-07] MEDS: HYDROmorphone 1 MG/ML 1 ML SYRINGE IVP PRN ×3 (12:47→21:37)
--- NOTE | 2023-07-07 13:07 | P.PN ---
Subjective Progress Note Date: 07/07/23 * 57-year-old patient with past medical history significant for coronary artery disease, history of gastric bypass surgery, prior history of lab band insertion/removal, fibromyalgia, anxiety, morbid obesity prior history of tobacco use, history of intra-abdominal limitations requiring glasses June 2022 presents to the emergency department with complains of abdominal pain, nausea, vomiting. Patient said symptom onset was one day prior to admission the night before coming in patient had left upper quadrant abdominal pain, this was followed by nausea and vomiting. Patient says she had 1 bowel move ment a day prior and no blood was noted, patient did not have a bowel movement since then and has not been able to pass gas. Patient denies associated fever, chills, chest pain, shortness of breath or any other complaints * Workup in ER included a CT abdomen and pelvis which showed diffuse hepatic s tenosis, no acute abdomen or pelvis process was noted, no free fluid in pelvis no pelvic or inguinal lymphadenopathy noted * Blood work obtained in ER include hepatology which were WBC of 9.4 hemoglobin 13.2 platelet count of 307 * INR check was 0.9 with PTT of 9.7 * Serum chemistry obtained sodium 138 potassium 4.4 carbon dioxide 20 to be on 18 creatinine 0.65 blood glucose 108 * Plasma lactate of 0.9 * Liver profile obtained showed AST of 34 a LT of 19 total protein of 7.2 albumin 4.3 lipase 85 * Patient admitted under general surgery service with consultation with medicine team for comanagement * 07/07/2023: Since seen and evaluated bedside, patient is status post robotic- assisted lysis of adhesion, intraoperative endoscopy, noted to have interval hernia with interloop adhesions , status post lysis of adhesion, seen postoperative day one REVIEW OF SYSTEMS: Nausea, vomiting, resolved, postprocedure abdominal pain present CONSTITUTIONAL: No fever, no malaise, no fatigue. HEENT: No recent visual problems or hearing problems. Denied any sore throat. CARDIOVASCULAR: No chest pain, orthopnea, PND, no palpitations, no syncope. PULMONARY: No shortness of breath, no cough, no hemoptysis. GASTROINTESTINAL abdominal pain, NEUROLOGICAL: No headaches, no weakness, no numbness. HEMATOLOGICAL: Denies any bleeding or petechiae. GENITOURINARY: Denies any burning micturition, frequency, or urgency. MUSCULOSKELETAL/RHEUMATOLOGICAL: Denies any joint pain, swelling, or any muscle pain. ENDOCRINE: Denies any polyuria or polydipsia. PHYSICAL EXAMINATION: GENERAL: The patient is alert and oriented x3, obese HEENT: Pupils are round and equally reacting to light. EOMI. No scleral icterus. CARDIOVASCULAR: S1 and S2 present. No murmurs, rubs, or gallops. PULMONARY: Chest is clear to auscultation, no wheezing or crackles. ABDOMEN: Soft, little incision noted MUSCULOSKELETAL: No joint swelling or deformity. EXTREMITIES: No cyanosis, clubbing, or pedal edema. NEUROLOGICAL: Gross neurological examination did not reveal any focal deficits. SKIN: No rashes. Objective - Vital Signs Vital signs: Vital Signs Temp 98.5 F 07/07/23 07:00 Pulse 82 07/07/23 07:00 Resp 18 07/07/23 07:00 BP 115/75 07/07/23 07:00 Pulse Ox 98 07/07/23 07:00 FiO2 Intake & Output 07/06/23 07/07/23 07/07/23 18:59 06:59 18:59 Intake Total 850 1100 120 Output Total 20 Balance 850 1080 120 Weight 104.326 kg Intake: IV 850 1100 Oral 120 Output: Estimated Blood Loss 20 Other: # Voids 1 - Labs CBC & Chem 7: 07/07/23 06:28 07/07/23 06:28 Labs: Abnormal Lab Results - Last 24 Hours (Table) 07/07/23 07/07/23 Range/Units 06:28 06:28 WBC 12.17 H (4.50-10.00) X 10*3/uL RBC 3.82 L (4.10-5.20) X 10*6/uL Hgb 11.3 L (12.0-15.0) g/dL Hct 35.1 L (37.2-46.3) % BUN/Creatinine Ratio 20.86 H (12.00-20.00) Ratio Assessment and Plan Assessment: Assessment and plan * Acute nausea/vomiting with intra-abdominal adhesions,/hernia with interloop wait on urination * History of intra-abdominal surgery/laparoscopic lysis of addition June 25, cholecystectomy * History of gastric bypass * Hyperlipidemia * History of depression * In regards to abdominal pain/interloop medications, postoperative day one, advance diet as tolerated, as needed nausea medications follow up on electrolytes and serum chemistry , general surgery following * In regards to history of depression continue Cymbalta * Continue patient on fluid resuscitation, follow-up on serum chemistries * Continue IV Protonix * Status is full code
[2023-07-07] MEDS: LACTATED RINGERS 1,000 ML IV SCH (14:21)
--- NOTE | 2023-07-07 19:46 | P.PN ---
Subjective Progress Note Date: 07/07/23 Principal diagnosis: Small bowel obstruction in patient status post gastric bypass, bone severe adhesions and internal hernia Patient resting quietly, pain well controlled, tolerating by mouth intake, no fever or chills Objective - Vital Signs Vital signs: Vital Signs Temp 98.1 F 07/07/23 15:00 Pulse 86 07/07/23 15:00 Resp 15 07/07/23 15:00 BP 141/74 07/07/23 15:00 Pulse Ox 95 07/07/23 15:00 FiO2 Intake & Output 07/07/23 07/07/23 07/08/23 06:59 18:59 06:59 Intake Total 1100 120 Output Total 20 Balance 1080 120 Intake: IV 1100 Oral 120 Output: Estimated Blood Loss 20 Other: # Voids 1 1 - Constitutional General appearance: Present: no acute distress - EENT Eyes: Present: PERRLA - Respiratory Respiratory: bilateral: CTA (Shortness o breath, nonlabored respirations) - Cardiovascular Rhythm: regular - Gastrointestinal Gastrointestinal Comment(s): Obese, Soft, Dressings Dry and Intact - Neurologic Neurologic Comment(s): Alert, orientated 3, appropriate affect - Labs CBC & Chem 7: 07/07/23 06:28 07/07/23 06:28 Labs: Abnormal Lab Results - Last 24 Hours (Table) 07/07/23 07/07/23 Range/Units 06:28 06:28 WBC 12.17 H (4.50-10.00) X 10*3/uL RBC 3.82 L (4.10-5.20) X 10*6/uL Hgb 11.3 L (12.0-15.0) g/dL Hct 35.1 L (37.2-46.3) % BUN/Creatinine Ratio 20.86 H (12.00-20.00) Ratio Assessment and Plan Assessment: 57-year-old female postop day 1 laparoscopic lysis of adhesions, repair of internal hernia Doing well, tolerating by mouth intake Anticipate discharge home soon, patient will follow-up with Dr. Gloria Time with Patient: Less than 30
[2023-07-07] MEDS: fentaNYL PCA 500 MCG/50 ML BAG IV SCH (21:31)
[2023-07-08] MEDS: ONDANSETRON 4 MG/2 ML VIAL IVP SCH ×2 (05:29→12:21)
[2023-07-08] MEDS: KETOROLAC 15 MG/ML 1 ML VIAL IVP SCH ×2 (05:29→13:02)
[2023-07-08] MEDS: SODIUM CHLORIDE 0.9% 1,000 ML IV SCH (05:29)
[2023-07-08] MEDS: HYDROmorphone 1 MG/ML 1 ML SYRINGE IVP PRN ×2 (09:14→12:19)
[2023-07-08] MEDS: HEPARIN SODIUM,PORCINE 5,000 UNIT/ML 1 ML VIAL SQ SCH (09:14)
[2023-07-08] MEDS: DULoxetine HCL 30 MG CAPSULE.DR PO SCH (09:14)
[2023-07-08] MEDS: PANTOPRAZOLE 40 MG/10 ML VIAL IVP SCH (09:14)
[2023-07-08 09:45] LABS: HCT 36.6 % (37.2-46.3); HGB 11.5 g/dL (12.0-15.0); MCH 29.7 pg (27.0-32.0); MCHC 31.4 g/dL (32.0-37.0); MCV 94.6 FL (80.0-97.0); Mean Platelet Volume 11.5 FL (9.5-12.2); NRBC Per 100 WBC 0 X 10*3/uL (0.00-0.01); Platelet Count 252 X 10*3/uL (140-440); RBC 3.87 X 10*6/uL (4.10-5.20); RDW 13.3 % (11.5-14.5)
[2023-07-08 09:53] LABS: BUN/Creat Ratio 19.29 Ratio (12.00-20.00); Blood Urea Nitrogen 13.5 mg/dL (9.0-27.0); Calcium 8.9 mg/dL (8.7-10.3); Carbon Dioxide 25.1 mmol/L (21.6-31.8); Chloride 105 mmol/L (96-109); Glucose 80 mg/dL (70-110); Sodium 141 mmol/L (135-145)
--- NOTE | 2023-07-08 11:33 | P.PN ---
Subjective Progress Note Date: 07/08/23 * 57-year-old patient with past medical history significant for coronary artery disease, history of gastric bypass surgery, prior history of lab band insertion/removal, fibromyalgia, anxiety, morbid obesity prior history of tobacco use, history of intra-abdominal limitations requiring glasses June 2022 presents to the emergency department with complains of abdominal pain, nausea, vomiting. Patient said symptom onset was one day prior to admission the night before coming in patient had left upper quadrant abdominal pain, this was followed by nausea and vomiting. Patient says she had 1 bowel move ment a day prior and no blood was noted, patient did not have a bowel movement since then and has not been able to pass gas. Patient denies associated fever, chills, chest pain, shortness of breath or any other complaints * Workup in ER included a CT abdomen and pelvis which showed diffuse hepatic s tenosis, no acute abdomen or pelvis process was noted, no free fluid in pelvis no pelvic or inguinal lymphadenopathy noted * Blood work obtained in ER include hepatology which were WBC of 9.4 hemoglobin 13.2 platelet count of 307 * INR check was 0.9 with PTT of 9.7 * Serum chemistry obtained sodium 138 potassium 4.4 carbon dioxide 20 to be on 18 creatinine 0.65 blood glucose 108 * Plasma lactate of 0.9 * Liver profile obtained showed AST of 34 a LT of 19 total protein of 7.2 albumin 4.3 lipase 85 * Patient admitted under general surgery service with consultation with medicine team for comanagement * 07/07/2023: Since seen and evaluated bedside, patient is status post robotic- assisted lysis of adhesion, intraoperative endoscopy, noted to have interval hernia with interloop adhesions , status post lysis of adhesion, seen postoperative day one * 07/08/2023: Patient seen and evaluated bedside postoperative day 2, abdominal pain has improved, hemodynamically stable, waiting for surgery evaluation, villafana rgical round to see if patient will go home today REVIEW OF SYSTEMS: Nausea, vomiting, resolved, postprocedure abdominal pain improved CONSTITUTIONAL: No fever, no malaise, no fatigue. HEENT: No recent visual problems or hearing problems. Denied any sore throat. CARDIOVASCULAR: No chest pain, orthopnea, PND, no palpitations, no syncope. PULMONARY: No shortness of breath, no cough, no hemoptysis. GASTROINTESTINAL abdominal pain, NEUROLOGICAL: No headaches, no weakness, no numbness. HEMATOLOGICAL: Denies any bleeding or petechiae. GENITOURINARY: Denies any burning micturition, frequency, or urgency. MUSCULOSKELETAL/RHEUMATOLOGICAL: Denies any joint pain, swelling, or any muscle pain. ENDOCRINE: Denies any polyuria or polydipsia. PHYSICAL EXAMINATION: GENERAL: The patient is alert and oriented x3, obese HEENT: Pupils are round and equally reacting to light. EOMI. No scleral icterus. CARDIOVASCULAR: S1 and S2 present. No murmurs, rubs, or gallops. PULMONARY: Chest is clear to auscultation, no wheezing or crackles. ABDOMEN: Soft, little incision noted MUSCULOSKELETAL: No joint swelling or deformity. EXTREMITIES: No cyanosis, clubbing, or pedal edema. NEUROLOGICAL: Gross neurological examination did not reveal any focal deficits. SKIN: No rashes. Objective - Vital Signs Vital signs: Vital Signs Temp 98.0 F 07/08/23 07:00 Pulse 73 07/08/23 07:00 Resp 15 07/08/23 07:00 BP 137/78 07/08/23 07:00 Pulse Ox 97 07/08/23 07:00 FiO2 Intake & Output 07/07/23 07/08/23 07/08/23 18:59 06:59 18:59 Intake Total 120 120 Balance 120 120 Intake: Oral 120 120 Other: # Voids 1 1 - Labs CBC & Chem 7: 07/08/23 06:19 07/08/23 06:19 Labs: Abnormal Lab Results - Last 24 Hours (Table) 07/08/23 Range/Units 06:19 RBC 3.87 L (4.10-5.20) X 10*6/uL Hgb 11.5 L (12.0-15.0) g/dL Hct 36.6 L (37.2-46.3) % MCHC 31.4 L (32.0-37.0) g/dL Assessment and Plan Assessment: Assessment and plan * Acute nausea/vomiting with intra-abdominal adhesions,/hernia with interloop adhesion POD 2 * History of intra-abdominal surgery/laparoscopic lysis of addition June 2022, cholecystectomy * History of gastric bypass * Hyperlipidemia * History of depression * In regards to abdominal pain/interloop medications, postoperative day one, advance diet as tolerated, as needed nausea medications follow up on electrolytes and serum chemistry , general surgery following * In regards to history of depression continue Cymbalta * Continue patient on fluid resuscitation, follow-up on serum chemistries * Continue IV Protonix * Status is full code
--- NOTE | 2023-07-08 14:12 | P.DS ---
Providers Date of admission: 07/05/23 16:56 Expected date of discharge: 07/08/23 Attending physician: Iraida Ashby Consults: 07/05/23 17:08 Consult Physician Urgent Consulting Provider: Amada Frost Consult Reason/Comments: LUQ pain Do you want consulting provider notified?: Yes Primary care physician: Stated None Hospital Course: Abdominal pain has improved from internal hernia and intermitted bowel obstruction. She reports improvement of abdominal pain. She has rare nausea but tolerated diet. Intraoperative images reviewed. Follow up as outpatient in 3 to 5 days. Low fiber diet reviewed. Labs reviewed. She had a bowel movement. Plan - Discharge Summary New Discharge Prescriptions: New Acetaminophen Tab [Tylenol Tab] 1,000 mg PO Q6HR PRN #30 tablet PRN Reason: Pain Simethicone [Gas-X] 125 mg PO AC-TID PRN #20 capsule PRN Reason: Pain Continue Multivitamins, Thera [Multivitamin (formulary)] 1 tab PO DAILY DULoxetine HCL [Cymbalta] 30 mg PO BID Discharge Medication List DULoxetine HCL [Cymbalta] 30 mg PO BID 06/06/23 [History] Multivitamins, Thera [Multivitamin (formulary)] 1 tab PO DAILY 06/06/23 [History] Acetaminophen Tab [Tylenol Tab] 1,000 mg PO Q6HR PRN #30 tablet 07/08/23 [Rx] Simethicone [Gas-X] 125 mg PO AC-TID PRN #20 capsule 07/08/23 [Rx] Follow up Appointment(s)/Referral(s): None,Stated [Primary Care Provider] - 1-2 days Bariatric [place], [place] [NON-STAFF] - 07/11/23 2:00 pm Patient Instructions/Handouts: Bowel Obstruction (DC), Lysis of Abdominal Adhesions (DC) Activity/Diet/Wound Care/Special Instructions: No lifting over 10 pounds in 2 weeks until Jul 20December shower. No bath tub soaks for two weeks until Jul 20 Diet as tolerated. Use Tylenol, simethicone scheduled for the next 24-48 hours for best pain relief. Use ice along incisions for today to prevent swelling. Discharge Disposition: HOME SELF-CARE
[2023-07-08 14:38] VITALS: BP 147/74; PULSE 89; RESP 16; TEMP 97.9
== END 2023-07-08 15:53 | disposition home or self-care (01) | DRG 335 ==
LOC: EC 12:56 → 6NMEDSUR 16:56 → OBSVTOIN 07-06 20:12
PROVIDERS: ADMIT Surgery Plastic and Reconstructive Surgery; ATTEND Surgery Plastic and Reconstructive Surgery
PROC: 0DNA4ZZ Release Jejunum, Percutaneous Endoscopic Approach (ICD-10-PCS; 2023-07-06)
PROC: 8E0W4CZ Robotic Assisted Procedure of Trunk Region, Percutaneous Endoscopic Approach (ICD-10-PCS; 2023-07-06)
PROC: 0DNB4ZZ Release Ileum, Percutaneous Endoscopic Approach (ICD-10-PCS; principal; 2023-07-06 17:45)
DX: K45.0 Other specified abdominal hernia with obstruction, without gangrene (principal); K28.4 Chronic or unspecified gastrojejunal ulcer with hemorrhage; K56.2 Volvulus; K56.1 Intussusception; M79.7 Fibromyalgia; K66.0 Peritoneal adhesions (postprocedural) (postinfection); E78.5 Hyperlipidemia, unspecified; F32.A Depression, unspecified; E66.01 Morbid (severe) obesity due to excess calories; F41.9 Anxiety disorder, unspecified; I25.10 Atherosclerotic heart disease of native coronary artery without angina pectoris; Z68.38 Body mass index [BMI] 38.0-38.9, adult; Z98.84 Bariatric surgery status; Z79.899 Other long term (current) drug therapy; Z88.5 Allergy status to narcotic agent; Z91.041 Radiographic dye allergy status; Z86.69 Personal history of other diseases of the nervous system and sense organs; Z87.891 Personal history of nicotine dependence; Z28.310 Unvaccinated for COVID-19; Z90.49 Acquired absence of other specified parts of digestive tract
CPT/HCPCS: 36415; 74177; 80048; 80053; 83605; 83690; 85025; 85027; 85610; 85730; 96361; 96374; 96375; 96376; 99285

== ENCOUNTER → 2023-07-11 | Outpatient (CLI) | payer BC ==
--- NOTE | 2023-07-11 14:49 | P.BASOAP ---
Subjective Progress Note Date: 07/11/23 DATE OF SERVICE: 07/11/23 CHIEF COMPLAINT: Status post gastric bypass HISTORY OF PRESENT ILLNESS: Carin James is a 57-year-old female who is status post gastric bypass, June 2013. She is 10 years out. He is status post emergent robotic lysis of adhesions for practical abdominal pain and inte rmittent bowel obstruction due to internal hernia, over 07/06/2023. She reports burniing with eating. She has diarrhea. No further back pain which was present prior to her procedure. She reports mild gas however to moderate distention. She reports occasional upper abdominal pain. No blood in stools.She is not drinking enough fluids. No fevers or chills. At her height of 5 foot, 5 inches, ideal body weight is 149 pounds. Highest weight was 304 pounds, BMI 50.7. Today she comes in weighing 269 pounds for 231 pounds, 2 years ago. She has gained 30 pounds in 2 years. Lifetime weight loss is 35 pounds. Last percent excess weight loss is 23 %. PHYSICAL EXAM: VITAL SIGNS: 5 foot 5 inches, 269 pounds. BMI 44.8 Vital Signs Temp 98 F 07/11/23 16:16 Pulse 111 H 07/11/23 16:16 Resp BP 140/90 07/11/23 16:16 Pulse Ox FiO2 Intake & Output 07/11/23 07/11/23 07/12/23 06:59 18:59 06:59 Weight 122.016 kg GENERAL: Well-developed female no acute distress. ABDOMEN: No peritonitis. Incisions intact. No cellulitis or infection. HEENT: No scleral icterus. Extraocular movements are intact. Moist buccal mucosa. NECK: Supple without lymphadenopathy. CHEST: Nonlabored respirations with equal bilateral excursions. CARDIOVASCULAR: Radial pulses 2+. Repeat 95 to 102 heart rate MUSCULOSKELETAL: No clubbing, cyanosis, or edema. NEURO: No focal or lateralizing signs. Cranial nerves 2 through 12 intact. PSYCH: Alert and oriented to person place and time. Appropriate affect. SKIN: Good skin turgor. Well-perfused. ASSESSMENT: 1. Bowel obstruction with internal hernia 2. Morbid obesity due to excess calories, Body mass index reduced with 50.7 down to 44.8 3. Peritoneal adhesions 4. Intractable abdominal pain 5. Status post Kalyn-en-Y gastric bypass. 6. Food allergies 7. Gastroesophageal reflux disease 8. Depressive disorder PLAN: 1. Recommend diet as tolerated due to recent abdominal surgery. 2. She is not drinking enough fluids and recommend a minimum 64 ounces daily 3. Due to extent of surgery, recommend him off work and recovered through 08/07/2023 4. Follow-up bariatric center 08/01/2023 5. Wound care instructions including antibacterial soap and hydrogen peroxide emphasized Assessment/Plan Plan: Date: Initial Weight: 123.06 kg Initial BMI: Current Weight: Current BMI: Type of Surgery: Total Volume in Band: Previous Volume: Volume Removed: Volume Added: Band Size:
[2023-07-11 16:38] VITALS: BP 140/90; PULSE 111; TEMP 98; BMI 44.7
== END ==
LOC: BARWHC3 13:52
PROVIDERS: ATTEND Surgery Plastic and Reconstructive Surgery
DX: E66.01 Morbid (severe) obesity due to excess calories (principal); K21.9 Gastro-esophageal reflux disease without esophagitis; F32.A Depression, unspecified; R10.9 Unspecified abdominal pain; K66.0 Peritoneal adhesions (postprocedural) (postinfection); F17.200 Nicotine dependence, unspecified, uncomplicated; K46.0 Unspecified abdominal hernia with obstruction, without gangrene; Z98.84 Bariatric surgery status; Z71.3 Dietary counseling and surveillance; Z68.41 Body mass index [BMI] 40.0-44.9, adult; Z91.018 Allergy to other foods; Z88.5 Allergy status to narcotic agent; Z88.8 Allergy status to other drugs, medicaments and biological substances
CPT/HCPCS: 99211

== ENCOUNTER → 2023-08-01 | Outpatient (CLI) | payer BC ==
[2023-08-01 14:44] VITALS: BP 135/78; PULSE 108; RESP 16; TEMP 98.3; BMI 45.1
--- NOTE | 2023-08-01 15:27 | P.BASOAP ---
Subjective Progress Note Date: 08/01/23 DATE OF SERVICE: 08/01/23 CHIEF COMPLAINT: Status post gastric bypass HISTORY OF PRESENT ILLNESS: Carin James is a 57-year-old female who is status post gastric bypass, June 2013. She is 10 years out. She is status post emergent robotic lysis of adhesions 07/06/2023 for internal hernia and ad hesions. She has fibromyalgia and requires additional time off work. She saw Dr Tamez for her arthritis. She does not have a primary care provider. She reports being on steroids for pain causing weight gain. At her height of 5 foot, 5 inches, ideal body weight is 149 pounds. Highest weight was 304 pounds, BMI 50.7. Today she comes in weighing 271 pounds from 269 pounds, 3 weeks ago. She has gained 3 pounds in 3 weeks. Lifetime weight loss is 33 pounds. Lifetime percent excess weight loss is 21 %. PHYSICAL EXAM: VITAL SIGNS: 5 foot 5 inches, 271 pounds. BMI 45.1 Vital Signs Temp 98.3 F 08/01/23 14:34 Pulse 108 H 08/01/23 14:34 Resp 16 08/01/23 14:34 BP 135/78 08/01/23 14:34 Pulse Ox FiO2 GENERAL: Well-developed female no acute distress. ABDOMEN: No peritonitis. Incisions granulated. HEENT: No scleral icterus. Extraocular movements are intact. Moist buccal mucosa. NECK: Supple without lymphadenopathy. CHEST: Nonlabored respirations with equal bilateral excursions. CARDIOVASCULAR: Radial pulses 2+. MUSCULOSKELETAL: No clubbing, cyanosis, or edema. NEURO: No focal or lateralizing signs. Cranial nerves 2 through 12 intact. PSYCH: Alert and oriented to person place and time. Appropriate affect. SKIN: Good skin turgor. Well-perfused. ASSESSMENT: 1. Bowel obstruction with internal hernia 2. Morbid obesity due to excess calories, Body mass index reduced with 50.7 down to 45.1 3. Peritoneal adhesions 4. Intractable abdominal pain 5. Status post Kalyn-en-Y gastric bypass. 6. Food allergies 7. Gastroesophageal reflux disease 8. Depressive disorder PLAN: 1. Return to work anticipated for August 19, 2023. 2. She needs follow-up with PCP for fibromyalgia. Objective - Vital Signs Vital signs: Vital Signs Temp 98.3 F 08/01/23 14:34 Pulse 108 H 08/01/23 14:34 Resp 16 08/01/23 14:34 BP 135/78 08/01/23 14:34 Pulse Ox FiO2 Intake & Output 07/31/23 08/01/23 08/01/23 18:59 06:59 18:59 Weight 122.924 kg Assessment/Plan Plan: Date: 08/01/23 Initial Weight: 123.06 kg Initial BMI: 45.1 Current Weight: 122.924 kg Current BMI: 45.1 Type of Surgery: Kalyn-en-Y Gastric Bypass Total Volume in Band: Previous Volume: Volume Removed: Volume Added: Band Size:
== END ==
LOC: BARWHC3 13:26
PROVIDERS: ATTEND Surgery Plastic and Reconstructive Surgery
DX: E66.01 Morbid (severe) obesity due to excess calories (principal); K46.0 Unspecified abdominal hernia with obstruction, without gangrene; K65.9 Peritonitis, unspecified; R10.9 Unspecified abdominal pain; F32.A Depression, unspecified; K21.9 Gastro-esophageal reflux disease without esophagitis; F17.200 Nicotine dependence, unspecified, uncomplicated; Z98.84 Bariatric surgery status; Z68.43 Body mass index [BMI] 50.0-59.9, adult; Z88.5 Allergy status to narcotic agent; Z88.1 Allergy status to other antibiotic agents; Z91.048 Other nonmedicinal substance allergy status
CPT/HCPCS: 99211

== ENCOUNTER 2023-08-22 06:53 | Emergency (ER) | payer BC ==
--- NOTE | 2023-08-22 07:11 | ED ---
Extremity Problem HPI - General Source: patient, RN notes reviewed Mode of arrival: ambulatory Limitations: no limitations <Jaiden Novoa - Last Filed: 08/22/23 07:10> - General Source: patient, RN notes reviewed, old records reviewed <Thien Akers - Last Filed: 08/22/23 14:54> - General Chief complaint: Extremity Problem,Nontraumatic Stated complaint: Blood clot in left leg Time Seen by Provider: 08/22/23 07:10 - History of Present Illness Initial comments: 57-year-old female presents emergency Department with chief complaint left leg pain, swelling. Patient states that she had recent surgical procedure remove scar tissue, adhesions. Patient states that she developed this redness, pain down her left was here thigh region. She is concerned about possible DVT and she denies any chest pain or shortness of breath no history DVT. (Jaiden Novoa) Patient is a 57-year-old female who presents with left posterior thigh pain. Had a recent abdominal surgical procedure last week. The last 2 days she has noticed pain on the back of her thigh. Believes it may be red. Initially was evaluated in triage is a quick note. Was concerned she may have a DVT. No history of blood clots. Is not on blood thinners. No obvious cause for the pain. States it feels like a tight, cramping is worse with movement of the hip. Is isolated to the posterior thigh. Presents for further evaluation at this time. Evaluated her when she was placed in room 30. (Thien Akers) - Related Data Home Medications Medication Instructions Recorded Confirmed DULoxetine HCL [Cymbalta] 30 mg PO BID 06/06/23 08/01/23 Multivitamins, Thera [Multivitamin 1 tab PO DAILY 06/06/23 08/01/23 (formulary)] Previous Rx's Medication Instructions Recorded Acetaminophen Tab [Tylenol Tab] 1,000 mg PO Q6HR PRN #30 tablet 07/08/23 Simethicone [Gas-X] 125 mg PO AC-TID PRN #20 capsule 07/08/23 Cyclobenzaprine [Flexeril] 5 mg PO BID 7 Days #14 tablet 08/22/23 Allergies Allergy/AdvReac Type Severity Reaction Status Date / Time codeine Allergy Severe Anaphylaxis Verified 08/22/23 07:07 iodine Allergy Severe Rash/Hives Verified 08/22/23 07:07 povidone-iodine Allergy Rash/Hives Verified 08/22/23 07:07 [From Betadine] soap [From Betadine] Allergy Rash/Hives Verified 08/22/23 07:07 Review of Systems ROS Other: All systems not noted in ROS Statement are negative. <Jaiden Novoa - Last Filed: 08/22/23 07:10> ROS Other: All systems not noted in ROS Statement are negative. <Thien Akers - Last Filed: 08/22/23 14:54> ROS Statement: Those systems with pertinent positive or pertinent negative responses have been documented in the HPI. Review of Systems: CONST: Denies fever EYES: Denies blurry vision ENT: Denies nasal congestion C/V: Denies Chest pain RESP: Denies shortness of breath GI: Denies abdominal pain : Denies dysuria SKIN: Denies rash. MSK: Endorses left posterior leg pain. NEURO: Denies headache (Thien Akers) Past Medical History Past Medical History: Fibromyalgia, GERD/Reflux, Neurologic Disorder, Pneumonia, Syncope Additional Past Medical History / Comment(s): Epilepsy- A CHILD-LAST SEIZURE AT AGE 13, "borderline cholesterol-no tx" History of Any Multi-Drug Resistant Organisms: None Reported Past Surgical History: Bariatric Surgery, Section, Cholecystectomy, Hysterectomy, Tonsillectomy Additional Past Surgical History / Comment(s): Lap band insertion and removal followed by a gastric bypass, abdominoplasty Past Anesthesia/Blood Transfusion Reactions: Motion Sickness, Postoperative Nausea & Vomiting (PONV) Additional Past Anesthesia/Blood Transfusion Reaction / Comment(s): CLAUSTROPHOBIA, motion sickness as child, no PONV in a long time Past Psychological History: Anxiety Smoking Status: Former smoker Past Alcohol Use History: Occasional Past Drug Use History: None Reported - Past Family History Father Family Medical History: Cancer Additional Family Medical History / Comment(s): prostate CANCER Mother Family Medical History: Deep Vein Thrombosis (DVT), Pulmonary Embolus Additional Family Medical History / Comment(s): . <Jaiden Novoa - Last Filed: 08/22/23 07:10> General Exam Limitations: no limitations <Jaiden Novoa - Last Filed: 08/22/23 07:10> <Thien Akers - Last Filed: 08/22/23 14:54> - General Exam Comments Initial Comments: Visual Physical Exam Vital signs reviewed General: Well-appearing, nontoxic, no acute distress. Head: Normocephalic, atraumatic Eyes: PERRLA, EOMI ENT: Airway patent Chest: Nonlabored breathing Skin: No visual rash, normal skin tone Neuro: Alert and oriented 3 Musculoskeletal: No gross abnormalities (Jaiden Novoa) General: Appears in mild to moderate distress. HEAD: Normal with no signs of head trauma. EYES: EOMI. ENT: Hearing grossly intact. RESPIRATORY: No respiratory distress. C/V: Regular rate and rhythm. Peripheral pulses intact and within normal limits in the distal left lower extremity. ABD: Abdomen is nondistended. EXT: No obvious deformity. Reduced range of motion secondary to pain. Tenderness palpation along the left posterior hamstring muscles and the left thigh. No obvious mass palpated. No skin changes or edema. No fluctuance. No evidence of infection. SKIN: No rashes or lesions observed on exposed skin. Includes the posterior left thigh which shows no skin changes. NEURO: Alert and oriented. Neurovascularly intact throughout. (Thien Akers) Course Vital Signs 08/22/23 08/22/23 07:04 10:06 Temperature 98 F 98.2 F Pulse Rate 106 H 72 Respiratory 18 16 Rate Blood Pressure 138/87 123/76 O2 Sat by Pulse 97 99 Oximetry Medical Decision Making <Jaiden Novoa - Last Filed: 08/22/23 07:10> <Thien Akers - Last Filed: 08/22/23 14:54> - Medical Decision Making I completed the quick note portion of this chart signed Jaiden Novoa PA-C (Jaiden Novoa) Was pt. sent in by a medical professional or institution (HERMELINDA Maciel, CERTIFIED MEDICAL CODING SPECIALIST, urgent care, hospital, or penitentiary...) When possible be specific @ -No Did you speak to anyone other than the patient for history (EMS, parent, family, police, friend...)? What history was obtained from this source @ -No Did you review nursing and triage notes (agree or disagree)? Why? @ -I reviewed and agree with nursing and triage notes Were old charts reviewed (outside hosp., previous admission, EMS record, old EKG, old radiological studies, urgent care reports/EKG's, penitentiary records)? Report findings @ -Old charts reviewed. Differential Diagnosis (chest pain, altered mental status, abdominal pain women, abdominal pain men, vaginal bleeding, weakness, fever, dyspnea, syncope, headach e, dizziness, GI bleed, back pain, seizure, CVA, palpatations, mental health, musculoskeletal)? @ -Differential Musculoskeletal Muscular strain, contusion, ligament sprain, fracture, arthritis, septic arthritis, bursitis, cellulitis, muscle spasm, nerve compression, DVT, arterial occlusion, herpes zoster, electrolyte abnormality, tumor.... This is not meant to be in all inclusive list EKG interpreted by me (3pts min.). @ -None done X-rays interpreted by me (1pt min.). @ -None done CT interpreted by me (1pt min.). @ -None done U/S interpreted by me (1pt. min.). @ -Ultrasound negative pretty obvious DVT of the left lower extremity. What testing was considered but not performed or refused? (CT, X-rays, U/S, labs)? Why? @ -None What meds were considered but not given or refused? Why? @ -None Did you discuss the management of the patient with other professionals (professionals i.e. , PA, CERTIFIED MEDICAL CODING SPECIALIST, lab, RT, psych nurse, protective services social worker, public health representative, teacher, emergency response officer, oil field caser)? Give summary @ -No Was smoking cessation discussed for >3mins.? @ -No Was critical care preformed (if so, how long)? @ -No Were there social determinants of health that impacted care today? How? (Homelessness, low income, unemployed, alcoholism, drug addiction, transportation, low edu. Level, literacy, decrease access to med. care, usp, rehab)? @ -No Was there de-escalation of care discussed even if they declined (Discuss DNR or withdrawal of care, Hospice)? DNR status @ -No What co-morbidities impacted this encounter? (DM, HTN, Smoking, COPD, CAD, Cancer, CVA, ARF, Chemo, Hep., AIDS, mental health diagnosis, sleep apnea, morbid obesity)? @ -None Was patient admitted / discharged? Hospital course, mention meds given and route, prescriptions, significant lab abnormalities, going to OR and other pertinent info. @ -Patient originally evaluated as a quick note. Ultrasound of the left lower extremity was completed to evaluate for DVT which is negative. I did convey this to the patient. She expressed understanding. I evaluated her when she was placed in room 30. Exam is unremarkable other than pain. I do suspect musculoskeletal cause for her current pain including possible muscle strain or sprain, spasm. Patient will be symptomatically treated with Valium, Toradol, Tylenol at this time. She'll be subsequently reevaluated. I did offer narcotics however she is ALLERGIC to codeine and declines. I believe this is reasonable. Vital signs are within acceptable limits. She'll be reevaluated. Patient feels improved after medications. She'll be discharged home at this time. She was in agreement with this plan. I will provide the patient with a prescription for Flexeril. I instructed the patient to follow up with their PCP in the next 1-3 days. I explained that the patient should return to the emergency department if they experience any wo rsening symptoms. Strict return precautions were discussed with the patient. The patient expressed understanding of these instructions. I answered all questions that the patient had. The patient was discharged home in good condition with their prescriptions and follow up information. Undiagnosed new problem with uncertain prognosis? @ -No Drug Therapy requiring intensive monitoring for toxicity (Heparin, Nitro, Insulin, Cardizem)? @ -No Were any procedures done? @ -No Diagnosis/symptom? @ -Muscle spasm, muscle strain Acute, or Chronic, or Acute on Chronic? @ -Acute Uncomplicated (without systemic symptoms) or Complicated (systemic symptoms)? @ -Uncomplicated Side effects of treatment? @ -none Exacerbation, Progression, or Severe Exacerbation] @ -no Poses a threat to life or bodily function? @ -no (Thien Akers) Disposition <Jaiden Novoa - Last Filed: 08/22/23 07:10> Is patient prescribed a controlled substance at d/c from ED?: No Time of Disposition: 10:12 <Thien Akers - Last Filed: 08/22/23 14:54> Clinical Impression: Muscle spasm, Muscle strain Disposition: HOME SELF-CARE Condition: Good Instructions (If sedation given, give patient instructions): Muscle Strain (ED) Prescriptions: Cyclobenzaprine [Flexeril] 5 mg PO BID 7 Days #14 tablet Referrals: Ruddy Salas MD [Primary Care Provider] - 1-2 days
--- NOTE | 2023-08-22 08:02 | US ---
EXAMINATION TYPE: US venous doppler duplex LE LT DATE OF EXAM: 08/22/2023 7:45 AM COMPARISON: NONE CLINICAL INDICATION: Female, 57 years old with history of pain; Left leg pain for 2 days SIDE PERFORMED: Left TECHNIQUE: The lower extremity deep venous system is examined utilizing real time linear array sonog giles with graded compression, doppler sonography and color-flow sonography. VESSELS IMAGED: Common Femoral Vein Deep Femoral Vein Greater Saphenous Vein * Femoral Vein Popliteal Vein Small Saphenous Vein * Proximal Calf Veins (* superficial vessels) Left Leg: No evidence of DVT as visualized. Rouleaux flow popliteal vein. Limitations due to patient 's body habitus IMPRESSION: No evidence for DVT within the left lower extremity imaged from the groin to the upper ca lf.
[2023-08-22] MEDS ORDERED: diazePAM 2 MG TAB PO STA (09:23)
[2023-08-22] MEDS ORDERED: KETOROLAC 15 MG/ML 1 ML VIAL IM STA (09:23)
[2023-08-22] MEDS ORDERED: ACETAMINOPHEN TAB 500 MG TAB PO STA (09:23)
[2023-08-22 10:49] VITALS: BP 123/76; PULSE 72; RESP 16; TEMP 98.2
== END 2023-08-22 10:30 | disposition home or self-care (01) ==
LOC: EC 06:53
DX: S86.912A Strain of unspecified muscle(s) and tendon(s) at lower leg level, left leg, initial encounter (principal); Z86.59 Personal history of other mental and behavioral disorders; Z87.891 Personal history of nicotine dependence; Z91.041 Radiographic dye allergy status; Z88.8 Allergy status to other drugs, medicaments and biological substances; Z90.49 Acquired absence of other specified parts of digestive tract; X58.XXXA Exposure to other specified factors, initial encounter
CPT/HCPCS: 93971; 99284; 96372; J1885

== ENCOUNTER → 2024-02-04 | Outpatient (CLI) | payer BC ==
--- NOTE | 2024-02-04 14:35 | XR ---
EXAMINATION TYPE: XR cervical spine limited DATE OF EXAM: 02/04/2024 COMPARISON: NONE HISTORY: Pain TECHNIQUE: 3 views are submitted. FINDINGS: The odontoid is intact. There are no compression deformities. The prevertebral soft tissue structur es are within normal limits. Calcifications soft tissue left neck likely vascular related carotid arteries. There is a grade 1 anterolisthesis C4-C5 with moderate to severe degenerative disc disease C5-6 and C 6-C7. Alignment is only documented to the level of C7. Emphysematous changes involving the lungs. IMPRESSION: 1. Degenerative disc disease involving the lower cervical spine most marked at C5-6 and C6-C7. Consid er follow-up MRI..
== END | disposition home or self-care (01) ==
LOC: RADXRMAIN 14:06
PROVIDERS: ATTEND Family Medicine
DX: M50.322 Other cervical disc degeneration at C5-C6 level (principal)
CPT/HCPCS: 72040

== ENCOUNTER → 2024-03-18 | Outpatient (CLI) | payer BC | END | disposition home or self-care (01) | LOC: LABPRL 12:34 | PROVIDERS: ATTEND Family Medicine | DX: E11.65 Type 2 diabetes mellitus with hyperglycemia | CPT/HCPCS: 80053; 80061; 82306; 82607; 83036; 84439; 84443; 84481; 85027 ==

== ENCOUNTER → 2024-04-08 | Outpatient (CLI) | payer BC ==
--- NOTE | 2024-04-08 14:00 | US ---
EXAMINATION TYPE: US thyroid st tissue head/neck DATE OF EXAM: 04/08/2024 COMPARISON: NONE CLINICAL INDICATION: Female, 58 years old with history of E04.1 THYROID NODULE; Nodule seen on recent MRI GLAND SIZE: Right Lobe: 6.0 x 1.9 x 1.9 cm Overall Parenchyma: heterogeneous Left Lobe: 5.8 x 1.9 x 2.1 cm Overall Parenchyma: heterogeneous Isthmus Thickness: 0.3 cm NODULES RIGHT: # of nodules measured on right: 0 LEFT: # of nodules measured on left: 2 1. 2.0 X 1.3 x 1.7 cm, lower mid, solid or almost completely solid, hypoechoic nodule, which is wid er than tall, with ill-defined margins, without echogenic foci. TR 4 nodule. Prior size: no previous 2. 1.3 X 1.0 x 1.2 cm, upper mid, solid or almost completely solid, isoechoic nodule, which is wid er than tall, with ill-defined margins, without echogenic foci. TR 3. Prior size: no previous ISTHMUS: # of nodules measured in the isthmus: 0 Bilateral neck scanned, no evidence of lymphadenopathy. IMPRESSION: 1. There is a 2 cm TR 4 left thyroid nodule which meets criteria for FNA biopsy. 2. There is a 1.3 cm TR 3 nodule for which surveillance is recommended. Next 3. Thyromegaly correlate for thyroiditis. 2017 ACR TI-RADS LEVEL: TR-RADS 4 - Moderately Suspicious: Follow if > 1 cm, FNA if > 1.5 cm *Highest TI-RADS level nodule reported
== END | disposition home or self-care (01) ==
LOC: RADUSWWP 12:19
PROVIDERS: ATTEND Family Medicine
DX: E04.1 Nontoxic single thyroid nodule (principal)
CPT/HCPCS: 76536

== ENCOUNTER 2024-04-25 08:26 | Day surgery (SDC) | payer BC ==
[2024-04-25 09:13] VITALS: RESP 16; TEMP 97.8
[2024-04-25] MEDS: ALPRAZolam 0.5 MG TAB PO STA (09:22)
[2024-04-25 09:28] LABS: Glucose,Whole Blood 111 mg/dL (70-110)
[2024-04-25 10:11] VITALS: BP 111/75; PULSE 88
--- NOTE | 2024-04-25 10:31 | US ---
EXAMINATION TYPE: US FNA thyroid first lesion DATE OF EXAM: 04/25/2024 10:14 AM CLINICAL INDICATION:Female, 58 years old with history of E04.1 NONTOXIC SINGLE THYROID NODULE; COMPARISON: 04/08/2024 ATTENDING: Dr. Geraldo Robertson PROCEDURE: Informed consent was obtained. The risks and benefits of the procedure were discussed with the patien t. The site was marked. Timeout procedure was performed Ultrasound imaging demonstrates left thyroid nodule. The patient was prepped, draped in the usual sterile fashion, and locally anesthetized with 1% lidoca ine. Five fine needle aspiration were then performed with a 25 gauge needle. Samples were sent to [facility] pathology department for further analysis. Patient tolerated the procedure without incident and wa s sent home in stable condition. IMPRESSION: Successful ultrasound guided fine needle aspiration [facility], , 04/25/2024 10:29 AM
== END 2024-04-25 10:19 | disposition home or self-care (01) ==
LOC: RADPROMAIN 08:26
DX: E04.1 Nontoxic single thyroid nodule (principal)
CPT/HCPCS: 10005; 88173; 88305

== ENCOUNTER → 2024-07-02 | Outpatient (CLI) | payer BC ==
[2024-07-02 14:25] VITALS: BP 125/80; PULSE 100; RESP 16; TEMP 97.6; BMI 35.6
--- NOTE | 2024-07-02 14:57 | P.BASOAP ---
Subjective Progress Note Date: 07/02/24 She reports chronic burning of the abdomen. She has not had full labs in over 1 year ago. EGD for ulcers. Food jounral. Meals a day is twice per day. She is not eating protein. She drinks 2 cups of coffee. ON ozempic and had weight loss 217 from 270 pounds. Objective - Vital Signs Vital signs: Vital Signs Temp 97.6 F 07/02/24 14:09 Pulse 100 07/02/24 14:09 Resp 16 07/02/24 14:09 BP 125/80 07/02/24 14:09 Pulse Ox FiO2 Intake & Output 07/01/24 07/02/24 07/02/24 18:59 06:59 18:59 Weight 97.069 kg Assessment/Plan Plan: Date: 07/02/24 Initial Weight: 123.06 kg Initial BMI: 45.1 Current Weight: 97.069 kg Current BMI: 35.6 Type of Surgery: Total Volume in Band: Previous Volume: Volume Removed: Volume Added: Band Size:
== END ==
LOC: BARWHC3 13:35
PROVIDERS: ATTEND Surgery Plastic and Reconstructive Surgery
DX: E66.01 Morbid (severe) obesity due to excess calories (principal); F17.210 Nicotine dependence, cigarettes, uncomplicated; Z68.35 Body mass index [BMI] 35.0-35.9, adult; Z88.5 Allergy status to narcotic agent; Z91.041 Radiographic dye allergy status; Z88.8 Allergy status to other drugs, medicaments and biological substances
CPT/HCPCS: 99211

== ENCOUNTER → 2024-07-02 | Outpatient (CLI) | payer BC ==
[2024-07-02 16:38] LABS: INR 0.8 (<1.2); Partial Thromboplastin Time 24.1 sec (22.0-30.0); Prothrombin Time 9.6 sec (10.0-12.5)
[2024-07-03 02:33] LABS: HCT 43.7 % (37.2-46.3); HGB 13.8 g/dL (12.0-15.0); MCH 28.7 pg (27.0-32.0); MCHC 31.6 g/dL (32.0-37.0); MCV 90.9 FL (80.0-97.0); Mean Platelet Volume 11.3 FL (9.5-12.2); NRBC Per 100 WBC 0 X 10*3/uL (0.00-0.01); Platelet Count 335 X 10*3/uL (140-440); RBC 4.81 X 10*6/uL (4.10-5.20); RDW 13.3 % (11.5-14.5); WBC 7.71 X 10*3/uL (4.50-10.00)
[2024-07-03 03:49] LABS: Prealbumin 20.7 mg/dL (18.0-42.0)
[2024-07-03 04:29] LABS: % Iron Saturation 10.03 (12.00-45.00); ALT 18 U/L (8-44); AST 28 U/L (13-35); Albumin 4.5 g/dL (3.8-4.9); Albumin/Globulin Ratio 1.96 Ratio (1.60-3.17); Alkaline Phosphatase 150 U/L (41-126); BUN/Creat Ratio 17.12 Ratio (12.00-20.00); Blood Urea Nitrogen 13.7 mg/dL (9.0-27.0); Calcium 9.9 mg/dL (8.7-10.3); Carbon Dioxide 23.1 mmol/L (21.6-31.8); Chloride 104 mmol/L (96-109); Chol/HDL Ratio 4.15 Ratio; Globulin 2.3 g/dL (1.6-3.3); Glucose 101 mg/dL (70-110); Iron 39 UG/DL (50-170); LDL Cholesterol,Calculated 129.9 mg/dL (0.0-131.0); Phosphorus 3.9 mg/dL (2.4-5.1); Potassium 4.5 mmol/L (3.5-5.5); Sodium 143 mmol/L (135-145); Total Bilirubin <0.2 mg/dL (0.3-1.2); Total Iron Binding Capacity 389 UG/DL (228-460); Total Protein 6.8 g/dL (6.2-8.2)
== END | disposition home or self-care (01) ==
LOC: LABWHC1 15:06
PROVIDERS: ATTEND Surgery Plastic and Reconstructive Surgery
DX: E89.1 Postprocedural hypoinsulinemia (principal); D50.8 Other iron deficiency anemias; K91.2 Postsurgical malabsorption, not elsewhere classified; E44.0 Moderate protein-calorie malnutrition; E44.1 Mild protein-calorie malnutrition; E45 Retarded development following protein-calorie malnutrition; E55.9 Vitamin D deficiency, unspecified; K74.1 Hepatic sclerosis; N19 Unspecified kidney failure; T56.894A Toxic effect of other metals, undetermined, initial encounter; K50.90 Crohn's disease, unspecified, without complications
CPT/HCPCS: 36415; 80053; 80061; 82306; 82525; 82607; 82728; 82746; 83036; 83540; 83550; 83735; 83970; 84100; 84134; 84255; 84425; 84443; 84590; 84630; 85027; 85610; 85730

== ENCOUNTER → 2024-11-25 | Outpatient (CLI) | payer BC ==
--- NOTE | 2024-11-25 09:26 | MM ---
Reason for Exam: Screening (asymptomatic). Last mammogram was performed 3 year(s) and 7 month(s) ago. Patient History: Menarche at age 12. First Full-Term at age 23. Hysterectomy at age 35. Postmenopausal. Patient has history of breast feeding. Maternal grandmother had breast cancer, age 70. Maternal cousin had breast cancer. Risk Values: Yessi 5 year model risk: 1.3%. NCI Lifetime model risk: 7.6%. Prior Study Comparison: 03/22/2017 Bilateral Screening Mammogram, [facility]. 02/28/2018 Bilateral Diagnostic Mammogram, [facility]. 02/06/2020 Bilateral Diagnostic Mammogram, [facility]. 04/15/2021 Bilateral Screening Mammogram, [facility]. Tissue Density: There are scattered areas of fibroglandular density. Findings: Analyzed By CAD. There is no suspicious group of microcalcifications or new suspicious mass in either breast. Overall Assessment: Negative, BI-RAD 1 Management: Screening Mammogram of both breasts in 1 year. . Patient should continue monthly self-breast exams. A clinical breast exam by your physician is recommended on an annual basis. This exam should not preclude additional follow-up of suspicious palpable abnormalities. Note on Yessi scores and lifetime risk: 1. A Yessi score greater than 3% is considered moderate risk. If this is the case, consider specialist referral to assess eligibility for a risk reducing agent. 2. If overall lifetime risk for the development of breast cancer is 20% or higher, the patient may qualify for future screening with alternating mammogram and breast MRI. [facility], , 11/25/2024 9:23 AM. Electronically signed and approved by: Andrew Rios M.D. Radiologis
== END | disposition home or self-care (01) ==
LOC: RADMAMWWP 08:32
PROVIDERS: ATTEND Family Medicine
DX: Z12.31 Encounter for screening mammogram for malignant neoplasm of breast (principal); R92.323 Mammographic fibroglandular density, bilateral breasts; Z78.0 Asymptomatic menopausal state; Z80.3 Family history of malignant neoplasm of breast
CPT/HCPCS: 77063; 77067

== ENCOUNTER → 2024-12-10 | Outpatient (CLI) | payer BC ==
[2024-12-10 10:26] LABS: Basophils # (A) 0.03 X 10*3/uL (0.00-0.10); Basophils % (A) 0.3 %; Eosinophils # (A) 0.01 X 10*3/uL (0.04-0.35); Eosinophils % (A) 0.1 %; HCT 39.2 % (37.2-46.3); HGB 12.7 g/dL (12.0-15.0); Lymphocytes # (A) 2.56 X 10*3/uL (0.90-5.00); MCH 28.9 pg (27.0-32.0); MCHC 32.4 g/dL (32.0-37.0); MCV 89.3 FL (80.0-97.0); Monocytes # (A) 0.41 X 10*3/uL (0.20-1.00); Monocytes % (A) 4.6 %; NRBC Per 100 WBC 0 X 10*3/uL (0.00-0.01); Neutrophils # (A) 5.77 X 10*3/uL (1.80-7.70); Neutrophils % (A) 65.5 %; Platelet Count 297 X 10*3/uL (140-440); RBC 4.39 X 10*6/uL (4.10-5.20); RDW 13.2 % (11.5-14.5); WBC 8.82 X 10*3/uL (4.50-10.00)
[2024-12-10 10:55] LABS: ALT 12 U/L (8-44); AST 23 U/L (13-35); Albumin 4.3 g/dL (3.8-4.9); Albumin/Globulin Ratio 1.79 Ratio (1.60-3.17); Alkaline Phosphatase 140 U/L (41-126); BUN/Creat Ratio 25.75 Ratio (12.00-20.00); Blood Urea Nitrogen 20.6 mg/dL (9.0-27.0); Calcium 9.6 mg/dL (8.7-10.3); Carbon Dioxide 24.8 mmol/L (21.6-31.8); Chloride 102 mmol/L (96-109); Chol/HDL Ratio 3.05 Ratio; Globulin 2.4 g/dL (1.6-3.3); Glucose 94 mg/dL (70-110); LDL Cholesterol,Calculated 106.1 mg/dL (0.0-131.0); Potassium 4.4 mmol/L (3.5-5.5); Sodium 142 mmol/L (135-145); Total Bilirubin 0.2 mg/dL (0.3-1.2); Total Protein 6.7 g/dL (6.2-8.2); Uric Acid 6.6 mg/dL (2.9-7.7)
[2024-12-10 11:03] LABS: Estradiol <20.0 pg/mL; Testosterone <10.00 ng/dL (7.00-45.62)
[2024-12-10 11:06] LABS: Follicle Stimulating Hormone 43.3 mIU/mL; Luteinizing Hormone 32.7 mIU/mL
== END | disposition home or self-care (01) ==
LOC: LABWHC1 07:45
DX: M25.50 Pain in unspecified joint (principal); N95.1 Menopausal and female climacteric states; R21 Rash and other nonspecific skin eruption
CPT/HCPCS: 36415; 80053; 80061; 82670; 83001; 83002; 83036; 84403; 84550; 85025; 86039; 86140